=== PATIENT | male | born 1940 | race Caucasian/White ===

== ENCOUNTER 2021-04-12 18:38 | Inpatient (IN) | payer MEDICARE, SELFPAY ==
[~2021-04-12] VITALS: Ht 170.2 cm; Wt 79.1 kg
[2021-04-12 20:49] LABS: HEMATOCRIT 45.2 % (42.0-52.0); HEMOGLOBIN 14.8 g/dl (13.5-17.5); MEAN CORPUSCULAR HEMOGLOBIN 29.7 pg (27.0-33.0); MEAN CORPUSCULAR HGB CONC 32.7 g/dl (32.0-36.5); MEAN CORPUSCULAR VOLUME 90.8 fl (80.0-96.0); PLATELET COUNT, AUTOMATED 331 10^3/uL (150-450); RED BLOOD COUNT 4.98 10^6/uL (4.30-6.10); WHITE BLOOD COUNT 11.2 10^3/uL (4.0-10.0)
[2021-04-12 21:13] LABS: ACETAMINOPHEN LEVEL < 2.0 UG/ML (10.0-30.0); ALBUMIN 3.5 GM/DL (3.2-5.2); ALKALINE PHOSPHATASE 79 U/L (45-117); ALT/SGPT 21 U/L (12-78); AST/SGOT 17 U/L (7-37); BILIRUBIN,DIRECT 0.1 MG/DL (0.0-0.2); BILIRUBIN,TOTAL 0.3 MG/DL (0.2-1.0); BLOOD UREA NITROGEN 17 MG/DL (7-18); CALCIUM LEVEL 9.4 MG/DL (8.8-10.2); CARBON DIOXIDE LEVEL 24 MEQ/L (21-32); CHLORIDE LEVEL 107 MEQ/L (98-107); CREATININE FOR GFR 0.91 MG/DL (0.70-1.30); ETHYL ALCOHOL (ETHANOL) < 0.003 % (0.000-0.010); GLOMERULAR FILTRATION RATE > 60.0 (>35); GLUCOSE, FASTING 106 MG/DL (70-100); POTASSIUM SERUM 4.1 MEQ/L (3.5-5.1); SALICYLATE LEVEL 3.9 MG/DL (5.0-30.0); SODIUM LEVEL 140 MEQ/L (136-145); TOTAL PROTEIN 7.4 GM/DL (6.4-8.2)
[2021-04-12 21:30] LABS: RSV AMPLIFICATION NEGATIVE (NEGATIVE)
[2021-04-12] MEDS ORDERED: HOME MED LIST COMPLETE! XX SCH (22:35)
[2021-04-13] MEDS ORDERED: diphenhydrAMINE 50MG CAP PO ONE (01:50)
[2021-04-13] MEDS ORDERED: PERCOCET 5MG/325MG TAB PO ONE (08:20)
[2021-04-13] MEDS ORDERED: ALPRAZolam 0.5 MG TAB PO ONE (08:20)
[2021-04-13] MEDS ORDERED: LIDOCAINE 5% (LIDODERM) PATCH TD SCH (09:00)
[2021-04-13 10:22] LABS: AMPHETAMINES LEVEL URINE NEGATIVE (NEGATIVE); BARBITURATES URINE NEGATIVE (NEGATIVE); BENZODIAZEPINES URINE NEGATIVE (NEGATIVE); CANNABINOIDS URINE NEGATIVE (NEGATIVE); COCAINE METABOLITE URINE NEGATIVE (NEGATIVE); METHADONE URINE NEGATIVE (NEGATIVE); OPIATES URINE POSITIVE (NEGATIVE); PHENCYCLIDINE URINE NEGATIVE (NEGATIVE)
[2021-04-13 14:00] VITALS: BP 134/68
[2021-04-13] MEDS: ALPRAZolam 0.5 MG TAB PO SCH (18:00)
[2021-04-13] MEDS: PERCOCET 5MG/325MG TAB PO PRN (18:00)
[2021-04-13] MEDS ORDERED: PERCOCET 5MG/325MG TAB PO SCH (21:00)
[2021-04-13 21:29] VITALS: BP 134/69
[2021-04-13] MEDS ORDERED: KETOROLAC 30 MG/ML 1ML VIAL IV ONE (22:35)
[2021-04-13] MEDS ORDERED: KETOROLAC TROMETHAMINE 10 MG TAB PO ONE (22:50)
[2021-04-13] MEDS: LIDOCAINE 5% (LIDODERM) PATCH TD SCH (23:10)
[2021-04-14] MEDS: ACETAMINOPHEN TAB 650MG DOSE (2X325MG) PO PRN (02:43)
[2021-04-14 05:52] VITALS: BP 141/76
[2021-04-14] MEDS: ENOXAPARIN 40MG/0.4ML SYRINGE (J1650 PER 10MG) SC SCH (08:54)
[2021-04-14] MEDS: ALPRAZolam 0.5 MG TAB PO SCH ×2 (08:55→20:32)
[2021-04-14] MEDS: PERCOCET 5MG/325MG TAB PO PRN ×2 (08:56→20:32)
[2021-04-14] MEDS: **NOTE PATIENT COMMENT** MISC XX SCH (08:56)
[2021-04-14 14:00] VITALS: BP 144/81
[2021-04-14] MEDS: LIDOCAINE 5% (LIDODERM) PATCH TD SCH (20:33)
[2021-04-14 22:00] VITALS: BP 147/83
[2021-04-15] MEDS: RAMELTEON 8 MG TAB (ROZEREM) PO PRN ×2 (02:38→20:32)
[2021-04-15] MEDS ORDERED: ALPRAZolam 0.5 MG TAB PO ONE (03:00)
[2021-04-15] MEDS ORDERED: PERCOCET 5MG/325MG TAB PO ONE (03:00)
[2021-04-15 06:00] VITALS: BP 138/66
[2021-04-15] MEDS: ENOXAPARIN 40MG/0.4ML SYRINGE (J1650 PER 10MG) SC SCH (09:00)
[2021-04-15] MEDS: ALPRAZolam 0.5 MG TAB PO SCH ×2 (09:07→20:32)
[2021-04-15] MEDS: PERCOCET 5MG/325MG TAB PO PRN ×2 (09:08→17:28)
[2021-04-15] MEDS: **NOTE PATIENT COMMENT** MISC XX SCH (09:08)
[2021-04-15 14:00] VITALS: BP 141/91
[2021-04-15] MEDS: LIDOCAINE 5% (LIDODERM) PATCH TD SCH (20:32)
[2021-04-16 06:00] VITALS: BP 162/75
[2021-04-16] MEDS: ALPRAZolam 0.5 MG TAB PO SCH ×2 (08:55→20:45)
[2021-04-16] MEDS: PERCOCET 5MG/325MG TAB PO PRN ×2 (08:56→20:46)
[2021-04-16] MEDS: ENOXAPARIN 40MG/0.4ML SYRINGE (J1650 PER 10MG) SC SCH (09:00)
[2021-04-16] MEDS: **NOTE PATIENT COMMENT** MISC XX SCH (09:02)
[2021-04-16] MEDS ORDERED: PERC10TA26 PO (11:45)
[2021-04-16] MEDS ORDERED: ALPR2TAB3 PO (11:47)
[2021-04-16] MEDS ORDERED: ZOLP10TA2 PO (11:47)
[2021-04-16] MEDS ORDERED: NITROFURANTOIN (MACROBID) 100 MG CAP PO SCH (12:00)
[2021-04-16] MEDS: AMOXICILLIN 875 MG TAB PO SCH ×2 (12:23→20:45)
[2021-04-16] MEDS: LIDOCAINE 5% (LIDODERM) PATCH TD SCH (20:45)
[2021-04-16] MEDS: RAMELTEON 8 MG TAB (ROZEREM) PO PRN (20:45)
[2021-04-16 22:00] VITALS: BP 121/71
[2021-04-17 06:00] VITALS: BP 163/73
[2021-04-17] MEDS: PERCOCET 5MG/325MG TAB PO PRN ×3 (06:26→18:56)
[2021-04-17] MEDS: AMOXICILLIN 875 MG TAB PO SCH ×2 (08:20→20:08)
[2021-04-17] MEDS: ALPRAZolam 0.5 MG TAB PO SCH ×2 (08:21→20:08)
[2021-04-17] MEDS: ENOXAPARIN 40MG/0.4ML SYRINGE (J1650 PER 10MG) SC SCH (09:00)
[2021-04-17] MEDS: **NOTE PATIENT COMMENT** MISC XX SCH (09:47)
[2021-04-17] MEDS: RAMELTEON 8 MG TAB (ROZEREM) PO PRN (20:08)
[2021-04-17] MEDS: LIDOCAINE 5% (LIDODERM) PATCH TD SCH (20:09)
[2021-04-18 06:49] VITALS: BP 151/100
[2021-04-18] MEDS: ENOXAPARIN 40MG/0.4ML SYRINGE (J1650 PER 10MG) SC SCH (08:45)
[2021-04-18] MEDS: AMOXICILLIN 875 MG TAB PO SCH ×2 (08:53→20:36)
[2021-04-18] MEDS: ALPRAZolam 0.5 MG TAB PO SCH ×2 (08:53→20:36)
[2021-04-18] MEDS: PERCOCET 5MG/325MG TAB PO PRN ×4 (08:54→21:20)
[2021-04-18] MEDS: **NOTE PATIENT COMMENT** MISC XX SCH (08:54)
[2021-04-18 09:00] VITALS: BP 152/94
[2021-04-18] MEDS ORDERED: amLODIPine 5 MG TAB PO SCH (11:30)
[2021-04-18] MEDS: RAMELTEON 8 MG TAB (ROZEREM) PO PRN (20:36)
[2021-04-18] MEDS: LIDOCAINE 5% (LIDODERM) PATCH TD SCH (20:37)
[2021-04-19] MEDS: PERCOCET 5MG/325MG TAB PO PRN ×5 (01:48→20:58)
[2021-04-19 06:00] VITALS: BP 132/73
[2021-04-19] MEDS: AMOXICILLIN 875 MG TAB PO SCH ×2 (09:55→20:57)
[2021-04-19] MEDS: ALPRAZolam 0.5 MG TAB PO SCH ×2 (09:55→20:58)
[2021-04-19] MEDS: **NOTE PATIENT COMMENT** MISC XX SCH (09:57)
[2021-04-19] MEDS: RAMELTEON 8 MG TAB (ROZEREM) PO PRN (20:58)
[2021-04-19] MEDS: LIDOCAINE 5% (LIDODERM) PATCH TD SCH (20:58)
[2021-04-20] MEDS: PERCOCET 5MG/325MG TAB PO PRN ×4 (04:29→22:30)
[2021-04-20 06:00] VITALS: BP 163/82
[2021-04-20] MEDS: ALPRAZolam 0.5 MG TAB PO SCH ×2 (09:02→21:00)
[2021-04-20] MEDS: AMOXICILLIN 875 MG TAB PO SCH ×3 (09:02→22:28)
[2021-04-20] MEDS: **NOTE PATIENT COMMENT** MISC XX SCH (09:46)
[2021-04-20] MEDS: LIDOCAINE 5% (LIDODERM) PATCH TD SCH (21:00)
[2021-04-20] MEDS: RAMELTEON 8 MG TAB (ROZEREM) PO PRN (22:29)
[2021-04-21] MEDS: PERCOCET 5MG/325MG TAB PO PRN ×4 (04:22→18:30)
[2021-04-21 06:00] VITALS: BP 158/79
[2021-04-21] MEDS: **NOTE PATIENT COMMENT** MISC XX SCH (09:00)
[2021-04-21] MEDS: ALPRAZolam 0.5 MG TAB PO SCH ×2 (09:58→21:12)
[2021-04-21] MEDS: ACETAMINOPHEN TAB 650MG DOSE (2X325MG) PO PRN ×2 (16:00→21:12)
[2021-04-21] MEDS: LIDOCAINE 5% (LIDODERM) PATCH TD SCH (21:11)
[2021-04-21] MEDS: AMOXICILLIN 875 MG TAB PO SCH (21:12)
[2021-04-21] MEDS: RAMELTEON 8 MG TAB (ROZEREM) PO PRN (21:12)
[2021-04-22] MEDS: PERCOCET 5MG/325MG TAB PO PRN ×3 (06:04→18:39)
[2021-04-22 06:05] VITALS: BP 152/73
[2021-04-22] MEDS: ALPRAZolam 0.5 MG TAB PO SCH ×2 (08:51→21:32)
[2021-04-22] MEDS: ACETAMINOPHEN TAB 650MG DOSE (2X325MG) PO PRN ×2 (08:52→21:32)
[2021-04-22] MEDS: AMOXICILLIN 875 MG TAB PO SCH ×2 (08:52→21:32)
[2021-04-22] MEDS: **NOTE PATIENT COMMENT** MISC XX SCH (08:52)
[2021-04-22] MEDS: RAMELTEON 8 MG TAB (ROZEREM) PO PRN (21:32)
[2021-04-22] MEDS: LIDOCAINE 5% (LIDODERM) PATCH TD SCH (21:32)
[2021-04-23] MEDS: PERCOCET 5MG/325MG TAB PO PRN ×3 (00:41→16:49)
[2021-04-23 06:00] VITALS: BP 149/75
[2021-04-23] MEDS: **NOTE PATIENT COMMENT** MISC XX SCH (08:15)
[2021-04-23] MEDS: ALPRAZolam 0.5 MG TAB PO SCH ×2 (08:15→21:20)
[2021-04-23] MEDS: AMOXICILLIN 875 MG TAB PO SCH ×2 (08:15→21:20)
[2021-04-23] MEDS: ACETAMINOPHEN TAB 650MG DOSE (2X325MG) PO PRN ×2 (11:43→21:20)
[2021-04-23 14:00] VITALS: BP 152/76
[2021-04-23] MEDS: LIDOCAINE 5% (LIDODERM) PATCH TD SCH (21:20)
[2021-04-23] MEDS: RAMELTEON 8 MG TAB (ROZEREM) PO PRN (21:20)
[2021-04-24] MEDS: PERCOCET 5MG/325MG TAB PO PRN ×3 (05:39→21:04)
[2021-04-24 06:00] VITALS: BP 137/64
[2021-04-24] MEDS: ALPRAZolam 0.5 MG TAB PO SCH ×2 (09:20→21:03)
[2021-04-24] MEDS: AMOXICILLIN 875 MG TAB PO SCH ×2 (09:20→21:03)
[2021-04-24] MEDS: ACETAMINOPHEN TAB 650MG DOSE (2X325MG) PO PRN (09:20)
[2021-04-24] MEDS: **NOTE PATIENT COMMENT** MISC XX SCH (09:20)
[2021-04-24] MEDS: RAMELTEON 8 MG TAB (ROZEREM) PO PRN (21:03)
[2021-04-24] MEDS: LIDOCAINE 5% (LIDODERM) PATCH TD SCH (21:03)
[2021-04-25] MEDS: PERCOCET 5MG/325MG TAB PO PRN ×3 (03:32→15:01)
[2021-04-25 05:30] VITALS: BP 137/70
[2021-04-25] MEDS: **NOTE PATIENT COMMENT** MISC XX SCH (09:00)
[2021-04-25] MEDS: AMOXICILLIN 875 MG TAB PO SCH ×2 (09:50→20:48)
[2021-04-25] MEDS: ALPRAZolam 0.5 MG TAB PO SCH ×2 (09:50→20:48)
[2021-04-25] MEDS: LIDOCAINE 5% (LIDODERM) PATCH TD SCH (20:49)
[2021-04-25] MEDS: MOM 30ML SUSPENSION UDC PO PRN (20:54)
[2021-04-26] MEDS: ACETAMINOPHEN TAB 650MG DOSE (2X325MG) PO PRN ×5 (00:27→20:59)
[2021-04-26] MEDS: RAMELTEON 8 MG TAB (ROZEREM) PO PRN ×2 (00:27→20:59)
[2021-04-26 06:23] VITALS: BP 152/70
[2021-04-26] MEDS: ALPRAZolam 0.5 MG TAB PO SCH ×2 (08:26→21:00)
[2021-04-26] MEDS: DOCUSATE SODIUM 100MG CAPSULE PO PRN (08:26)
[2021-04-26] MEDS: **NOTE PATIENT COMMENT** MISC XX SCH (09:00)
[2021-04-26] MEDS: PERCOCET 5MG/325MG TAB PO PRN (16:03)
[2021-04-26] MEDS: LIDOCAINE 5% (LIDODERM) PATCH TD SCH (21:00)
[2021-04-27] MEDS: ACETAMINOPHEN TAB 650MG DOSE (2X325MG) PO PRN ×4 (01:22→20:06)
[2021-04-27] MEDS: PERCOCET 5MG/325MG TAB PO PRN ×3 (02:32→22:39)
[2021-04-27 06:00] VITALS: BP 136/74
[2021-04-27] MEDS: ALPRAZolam 0.5 MG TAB PO SCH ×2 (08:13→20:06)
[2021-04-27] MEDS: **NOTE PATIENT COMMENT** MISC XX SCH (08:13)
[2021-04-27] MEDS: CALCIUM CARBONATE 500 MG CHEW U/D PO PRN (13:31)
[2021-04-27] MEDS: LIDOCAINE 5% (LIDODERM) PATCH TD SCH ×2 (20:05→20:08)
[2021-04-27] MEDS: RAMELTEON 8 MG TAB (ROZEREM) PO PRN (20:06)
[2021-04-28] MEDS: PERCOCET 5MG/325MG TAB PO PRN ×2 (04:23→20:26)
[2021-04-28 06:00] VITALS: BP 136/73
[2021-04-28] MEDS: ACETAMINOPHEN TAB 650MG DOSE (2X325MG) PO PRN ×3 (08:05→17:10)
[2021-04-28] MEDS: ALPRAZolam 0.5 MG TAB PO SCH (09:00)
[2021-04-28] MEDS: **NOTE PATIENT COMMENT** MISC XX SCH (09:40)
[2021-04-28] MEDS: ALPRAZolam 0.5 MG TAB PO PRN (20:26)
[2021-04-28] MEDS: RAMELTEON 8 MG TAB (ROZEREM) PO PRN (20:26)
[2021-04-28] MEDS: LIDOCAINE 5% (LIDODERM) PATCH TD SCH (20:27)
[2021-04-28] MEDS: HEPARIN SOD (PORCINE) 5000UNITS/ML 1ML VIAL/SYRINGE SQ SCH (20:27)
[2021-04-29] MEDS: ACETAMINOPHEN TAB 650MG DOSE (2X325MG) PO PRN ×4 (01:19→19:51)
[2021-04-29] MEDS ORDERED: ALPRAZolam 0.5 MG TAB PO ONE (02:00)
[2021-04-29] MEDS: PERCOCET 5MG/325MG TAB PO PRN ×4 (06:06→19:51)
[2021-04-29] MEDS: **NOTE PATIENT COMMENT** MISC XX SCH (08:47)
[2021-04-29] MEDS: HEPARIN SOD (PORCINE) 5000UNITS/ML 1ML VIAL/SYRINGE SQ SCH ×2 (08:47→19:53)
[2021-04-29] MEDS: ALPRAZolam 0.5 MG TAB PO SCH ×2 (08:55→19:52)
[2021-04-29 15:53] VITALS: BP 134/71
[2021-04-29] MEDS: RAMELTEON 8 MG TAB (ROZEREM) PO PRN (19:51)
[2021-04-29] MEDS: LIDOCAINE 5% (LIDODERM) PATCH TD SCH (19:53)
[2021-04-29] MEDS: ALPRAZolam 0.5 MG TAB PO PRN (23:51)
[2021-04-30] MEDS: PERCOCET 5MG/325MG TAB PO PRN ×3 (04:50→18:04)
[2021-04-30 06:00] VITALS: BP 139/74
[2021-04-30] MEDS: ALPRAZolam 0.5 MG TAB PO PRN ×2 (06:10→18:05)
[2021-04-30] MEDS: HEPARIN SOD (PORCINE) 5000UNITS/ML 1ML VIAL/SYRINGE SQ SCH ×2 (09:00→21:00)
[2021-04-30] MEDS: ALPRAZolam 0.5 MG TAB PO SCH ×2 (10:13→21:17)
[2021-04-30] MEDS: **NOTE PATIENT COMMENT** MISC XX SCH (10:14)
[2021-04-30 14:00] VITALS: BP 142/60
[2021-04-30] MEDS: LIDOCAINE 5% (LIDODERM) PATCH TD SCH (21:00)
[2021-04-30] MEDS: ACETAMINOPHEN TAB 650MG DOSE (2X325MG) PO PRN (21:17)
[2021-04-30] MEDS: RAMELTEON 8 MG TAB (ROZEREM) PO PRN (21:17)
[2021-05-01 06:00] VITALS: BP 174/78
[2021-05-01] MEDS: PERCOCET 5MG/325MG TAB PO PRN ×4 (06:56→23:27)
[2021-05-01] MEDS: ALPRAZolam 0.5 MG TAB PO PRN (06:56)
[2021-05-01] MEDS: **NOTE PATIENT COMMENT** MISC XX SCH (08:58)
[2021-05-01] MEDS: HEPARIN SOD (PORCINE) 5000UNITS/ML 1ML VIAL/SYRINGE SQ SCH ×2 (08:58→21:00)
[2021-05-01] MEDS: ALPRAZolam 0.5 MG TAB PO SCH ×3 (08:58→23:27)
[2021-05-01] MEDS: ACETAMINOPHEN TAB 650MG DOSE (2X325MG) PO PRN (19:53)
[2021-05-01] MEDS: RAMELTEON 8 MG TAB (ROZEREM) PO PRN ×2 (19:53→23:27)
[2021-05-01] MEDS ORDERED: diphenhydrAMINE 50MG/ML VIAL IM STA (20:24)
[2021-05-01] MEDS ORDERED: OLANZapine INTRAMUSCULAR 10MG VIAL IM ONE (20:25)
[2021-05-01] MEDS: LIDOCAINE 5% (LIDODERM) PATCH TD SCH (21:00)
[2021-05-02] MEDS: ALPRAZolam 0.5 MG TAB PO PRN ×2 (05:12→18:47)
[2021-05-02] MEDS: PERCOCET 5MG/325MG TAB PO PRN ×3 (05:13→18:45)
[2021-05-02] MEDS: HEPARIN SOD (PORCINE) 5000UNITS/ML 1ML VIAL/SYRINGE SQ SCH (08:39)
[2021-05-02] MEDS: **NOTE PATIENT COMMENT** MISC XX SCH (08:39)
[2021-05-02] MEDS: QUEtiapine FUMARATE 25 MG TAB PO SCH ×2 (10:18→22:02)
[2021-05-02] MEDS: ALPRAZolam 0.5 MG TAB PO SCH ×2 (10:18→22:03)
[2021-05-02] MEDS: RAMELTEON 8 MG TAB (ROZEREM) PO PRN (22:03)
[2021-05-03] MEDS: PERCOCET 5MG/325MG TAB PO PRN ×5 (00:55→21:00)
[2021-05-03 06:00] VITALS: BP 147/85
[2021-05-03] MEDS: **NOTE PATIENT COMMENT** MISC XX SCH (09:00)
[2021-05-03] MEDS: HEPARIN SOD (PORCINE) 5000UNITS/ML 1ML VIAL/SYRINGE SQ SCH ×2 (09:00→21:00)
[2021-05-03] MEDS: ALPRAZolam 0.5 MG TAB PO SCH ×2 (09:33→21:00)
[2021-05-03] MEDS: QUEtiapine FUMARATE 25 MG TAB PO SCH ×2 (09:33→20:59)
[2021-05-03] MEDS: ACETAMINOPHEN TAB 650MG DOSE (2X325MG) PO PRN (11:41)
[2021-05-03] MEDS: RAMELTEON 8 MG TAB (ROZEREM) PO PRN (20:59)
[2021-05-03] MEDS: ALPRAZolam 0.5 MG TAB PO PRN (21:00)
[2021-05-03] MEDS: LIDOCAINE 5% (LIDODERM) PATCH TD SCH (21:00)
[2021-05-04] MEDS: PERCOCET 5MG/325MG TAB PO PRN ×3 (01:26→16:36)
[2021-05-04 06:00] VITALS: BP 118/68
[2021-05-04] MEDS: ALPRAZolam 0.5 MG TAB PO SCH ×2 (08:40→20:09)
[2021-05-04] MEDS: QUEtiapine FUMARATE 25 MG TAB PO SCH ×2 (08:41→20:09)
[2021-05-04] MEDS: HEPARIN SOD (PORCINE) 5000UNITS/ML 1ML VIAL/SYRINGE SQ SCH ×2 (08:41→20:08)
[2021-05-04] MEDS: **NOTE PATIENT COMMENT** MISC XX SCH (08:48)
[2021-05-04] MEDS: ALPRAZolam 0.5 MG TAB PO PRN (18:09)
[2021-05-04] MEDS: LIDOCAINE 5% (LIDODERM) PATCH TD SCH (20:08)
[2021-05-04] MEDS: RAMELTEON 8 MG TAB (ROZEREM) PO PRN (20:09)
[2021-05-04] MEDS: ACETAMINOPHEN TAB 650MG DOSE (2X325MG) PO PRN (20:09)
[2021-05-04] MEDS: DOCUSATE SODIUM 100MG CAPSULE PO PRN (20:09)
[2021-05-05] MEDS: PERCOCET 5MG/325MG TAB PO PRN ×3 (01:29→22:06)
[2021-05-05] MEDS: ACETAMINOPHEN TAB 650MG DOSE (2X325MG) PO PRN (03:18)
[2021-05-05 06:00] VITALS: BP 125/71
[2021-05-05] MEDS: QUEtiapine FUMARATE 25 MG TAB PO SCH ×2 (08:41→22:05)
[2021-05-05] MEDS: ALPRAZolam 0.5 MG TAB PO SCH ×2 (08:41→22:05)
[2021-05-05] MEDS: HEPARIN SOD (PORCINE) 5000UNITS/ML 1ML VIAL/SYRINGE SQ SCH ×2 (08:42→22:04)
[2021-05-05] MEDS: **NOTE PATIENT COMMENT** MISC XX SCH (08:42)
[2021-05-05] MEDS: LIDOCAINE 5% (LIDODERM) PATCH TD SCH (22:04)
[2021-05-05] MEDS: DOCUSATE SODIUM 100MG CAPSULE PO PRN (22:05)
[2021-05-05] MEDS: RAMELTEON 8 MG TAB (ROZEREM) PO PRN (22:05)
[2021-05-06] MEDS: PERCOCET 5MG/325MG TAB PO PRN ×5 (02:47→21:59)
[2021-05-06 02:48] VITALS: BP 130/72
[2021-05-06] MEDS: HEPARIN SOD (PORCINE) 5000UNITS/ML 1ML VIAL/SYRINGE SQ SCH ×2 (09:00→21:00)
[2021-05-06] MEDS: ALPRAZolam 0.5 MG TAB PO SCH ×2 (09:26→21:58)
[2021-05-06] MEDS: QUEtiapine FUMARATE 25 MG TAB PO SCH ×2 (09:26→21:59)
[2021-05-06] MEDS: **NOTE PATIENT COMMENT** MISC XX SCH (09:28)
[2021-05-06] MEDS: ALPRAZolam 0.5 MG TAB PO PRN (18:19)
[2021-05-06] MEDS: LIDOCAINE 5% (LIDODERM) PATCH TD SCH (21:00)
[2021-05-06] MEDS: RAMELTEON 8 MG TAB (ROZEREM) PO PRN (21:58)
[2021-05-07] MEDS: ACETAMINOPHEN TAB 650MG DOSE (2X325MG) PO PRN ×2 (03:29→11:19)
[2021-05-07 06:00] VITALS: BP 138/76
[2021-05-07] MEDS: ALPRAZolam 0.5 MG TAB PO SCH ×3 (08:27→21:13)
[2021-05-07] MEDS: QUEtiapine FUMARATE 25 MG TAB PO SCH ×2 (08:27→21:00)
[2021-05-07] MEDS: PERCOCET 5MG/325MG TAB PO PRN ×2 (08:28→13:01)
[2021-05-07] MEDS: **NOTE PATIENT COMMENT** MISC XX SCH (09:00)
[2021-05-07] MEDS: HEPARIN SOD (PORCINE) 5000UNITS/ML 1ML VIAL/SYRINGE SQ SCH ×2 (09:00→21:00)
[2021-05-07] MEDS: ALPRAZolam 0.5 MG TAB PO PRN (13:01)
[2021-05-07] MEDS: LIDOCAINE 5% (LIDODERM) PATCH TD SCH (21:00)
[2021-05-08] MEDS: ALPRAZolam 0.5 MG TAB PO SCH ×3 (06:00→21:15)
[2021-05-08] MEDS: HEPARIN SOD (PORCINE) 5000UNITS/ML 1ML VIAL/SYRINGE SQ SCH ×2 (08:38→21:00)
[2021-05-08] MEDS: **NOTE PATIENT COMMENT** MISC XX SCH (08:39)
[2021-05-08] MEDS: QUEtiapine FUMARATE 25 MG TAB PO SCH ×2 (09:00→21:00)
[2021-05-08] MEDS: LIDOCAINE 5% (LIDODERM) PATCH TD SCH (21:00)
[2021-05-09] MEDS: ALPRAZolam 0.5 MG TAB PO SCH ×4 (05:46→21:11)
[2021-05-09] MEDS: PERCOCET 5MG/325MG TAB PO PRN ×4 (07:37→21:12)
[2021-05-09] MEDS: QUEtiapine FUMARATE 25 MG TAB PO SCH ×3 (07:38→21:11)
[2021-05-09] MEDS: **NOTE PATIENT COMMENT** MISC XX SCH (08:45)
[2021-05-09] MEDS: HEPARIN SOD (PORCINE) 5000UNITS/ML 1ML VIAL/SYRINGE SQ SCH ×2 (08:46→21:00)
[2021-05-09] MEDS: LIDOCAINE 5% (LIDODERM) PATCH TD SCH (21:00)
[2021-05-09] MEDS: RAMELTEON 8 MG TAB (ROZEREM) PO PRN (21:11)
[2021-05-10] MEDS: ALPRAZolam 0.5 MG TAB PO SCH ×3 (05:51→20:48)
[2021-05-10] MEDS: PERCOCET 5MG/325MG TAB PO PRN ×3 (05:51→20:47)
[2021-05-10 06:00] VITALS: BP 137/75
[2021-05-10] MEDS: ACETAMINOPHEN TAB 650MG DOSE (2X325MG) PO PRN ×2 (08:49→16:14)
[2021-05-10] MEDS: QUEtiapine FUMARATE 25 MG TAB PO SCH ×2 (08:49→20:47)
[2021-05-10] MEDS: HEPARIN SOD (PORCINE) 5000UNITS/ML 1ML VIAL/SYRINGE SQ SCH ×2 (09:00→20:48)
[2021-05-10] MEDS: **NOTE PATIENT COMMENT** MISC XX SCH (09:59)
[2021-05-10] MEDS: CALCIUM CARBONATE 500 MG CHEW U/D PO PRN (16:14)
[2021-05-10] MEDS: RAMELTEON 8 MG TAB (ROZEREM) PO PRN (20:47)
[2021-05-10] MEDS: LIDOCAINE 5% (LIDODERM) PATCH TD SCH (20:48)
[2021-05-11] MEDS: PERCOCET 5MG/325MG TAB PO PRN ×5 (01:16→18:25)
[2021-05-11] MEDS: ALPRAZolam 0.5 MG TAB PO PRN ×3 (01:18→18:25)
[2021-05-11] MEDS: ALPRAZolam 0.5 MG TAB PO SCH ×3 (05:29→20:57)
[2021-05-11] MEDS: HEPARIN SOD (PORCINE) 5000UNITS/ML 1ML VIAL/SYRINGE SQ SCH ×2 (07:10→20:51)
[2021-05-11] MEDS: ACETAMINOPHEN TAB 650MG DOSE (2X325MG) PO PRN ×2 (07:54→20:58)
[2021-05-11] MEDS: QUEtiapine FUMARATE 25 MG TAB PO SCH ×3 (07:54→20:57)
[2021-05-11] MEDS: **NOTE PATIENT COMMENT** MISC XX SCH (09:32)
[2021-05-11] MEDS: LIDOCAINE 5% (LIDODERM) PATCH TD SCH (20:51)
[2021-05-11] MEDS: RAMELTEON 8 MG TAB (ROZEREM) PO PRN (20:57)
[2021-05-12] MEDS: PERCOCET 5MG/325MG TAB PO PRN ×4 (02:42→22:03)
[2021-05-12] MEDS: ALPRAZolam 0.5 MG TAB PO SCH ×3 (05:44→22:02)
[2021-05-12] MEDS: ACETAMINOPHEN TAB 650MG DOSE (2X325MG) PO PRN (05:44)
[2021-05-12 06:00] VITALS: BP 174/90
[2021-05-12] MEDS: HEPARIN SOD (PORCINE) 5000UNITS/ML 1ML VIAL/SYRINGE SQ SCH ×2 (07:52→21:00)
[2021-05-12] MEDS: **NOTE PATIENT COMMENT** MISC XX SCH (07:52)
[2021-05-12] MEDS: QUEtiapine FUMARATE 25 MG TAB PO SCH ×2 (08:35→22:02)
[2021-05-12] MEDS: ALPRAZolam 0.5 MG TAB PO PRN (17:01)
[2021-05-12] MEDS: LIDOCAINE 5% (LIDODERM) PATCH TD SCH (21:00)
[2021-05-12] MEDS: RAMELTEON 8 MG TAB (ROZEREM) PO PRN (22:02)
[2021-05-13] MEDS: PERCOCET 5MG/325MG TAB PO PRN ×3 (02:42→20:06)
[2021-05-13] MEDS: ALPRAZolam 0.5 MG TAB PO SCH ×4 (06:10→20:06)
[2021-05-13] MEDS: QUEtiapine FUMARATE 25 MG TAB PO SCH ×2 (09:00→20:06)
[2021-05-13] MEDS: **NOTE PATIENT COMMENT** MISC XX SCH (09:00)
[2021-05-13] MEDS: HEPARIN SOD (PORCINE) 5000UNITS/ML 1ML VIAL/SYRINGE SQ SCH ×2 (09:00→20:01)
[2021-05-13] MEDS: LIDOCAINE 5% (LIDODERM) PATCH TD SCH (20:01)
[2021-05-13] MEDS: RAMELTEON 8 MG TAB (ROZEREM) PO PRN (20:06)
[2021-05-14] MEDS: PERCOCET 5MG/325MG TAB PO PRN ×4 (01:23→20:00)
[2021-05-14] MEDS: ALPRAZolam 0.5 MG TAB PO PRN ×2 (01:27→09:19)
[2021-05-14] MEDS ORDERED: HALOPERIDOL 5MG/ML 1ML VIAL IM STA (02:34)
[2021-05-14] MEDS: ALPRAZolam 0.5 MG TAB PO SCH ×3 (06:05→19:58)
[2021-05-14] MEDS: **NOTE PATIENT COMMENT** MISC XX SCH (08:33)
[2021-05-14] MEDS: HEPARIN SOD (PORCINE) 5000UNITS/ML 1ML VIAL/SYRINGE SQ SCH ×2 (08:55→20:00)
[2021-05-14] MEDS: QUEtiapine FUMARATE 25 MG TAB PO SCH ×2 (09:19→19:58)
[2021-05-14] MEDS: LIDOCAINE 5% (LIDODERM) PATCH TD SCH (19:57)
[2021-05-14] MEDS: RAMELTEON 8 MG TAB (ROZEREM) PO PRN (19:58)
[2021-05-15] MEDS: ALPRAZolam 0.5 MG TAB PO SCH ×3 (05:22→20:32)
[2021-05-15] MEDS: PERCOCET 5MG/325MG TAB PO PRN ×3 (05:23→20:32)
[2021-05-15] MEDS: **NOTE PATIENT COMMENT** MISC XX SCH (09:00)
[2021-05-15] MEDS: HEPARIN SOD (PORCINE) 5000UNITS/ML 1ML VIAL/SYRINGE SQ SCH ×2 (09:00→20:35)
[2021-05-15] MEDS: QUEtiapine FUMARATE 25 MG TAB PO SCH ×2 (09:57→20:33)
[2021-05-15] MEDS: RAMELTEON 8 MG TAB (ROZEREM) PO PRN (20:32)
[2021-05-15] MEDS: LIDOCAINE 5% (LIDODERM) PATCH TD SCH (20:36)
[2021-05-16] MEDS: ALPRAZolam 0.5 MG TAB PO PRN (03:08)
[2021-05-16] MEDS: PERCOCET 5MG/325MG TAB PO PRN ×4 (03:08→20:16)
[2021-05-16] MEDS: ACETAMINOPHEN TAB 650MG DOSE (2X325MG) PO PRN (05:52)
[2021-05-16] MEDS: ALPRAZolam 0.5 MG TAB PO SCH ×4 (05:52→21:04)
[2021-05-16] MEDS: HEPARIN SOD (PORCINE) 5000UNITS/ML 1ML VIAL/SYRINGE SQ SCH ×2 (09:00→20:08)
[2021-05-16] MEDS: **NOTE PATIENT COMMENT** MISC XX SCH (09:00)
[2021-05-16] MEDS: QUEtiapine FUMARATE 25 MG TAB PO SCH ×3 (09:00→20:16)
[2021-05-16] MEDS: LIDOCAINE 5% (LIDODERM) PATCH TD SCH (20:08)
[2021-05-16] MEDS: RAMELTEON 8 MG TAB (ROZEREM) PO PRN (20:15)
[2021-05-17] MEDS: ALPRAZolam 0.5 MG TAB PO PRN ×2 (02:36→18:18)
[2021-05-17] MEDS: PERCOCET 5MG/325MG TAB PO PRN ×5 (02:36→22:59)
[2021-05-17] MEDS: ALPRAZolam 0.5 MG TAB PO SCH ×3 (05:21→22:59)
[2021-05-17] MEDS: QUEtiapine FUMARATE 25 MG TAB PO SCH ×2 (07:28→20:42)
[2021-05-17] MEDS: **NOTE PATIENT COMMENT** MISC XX SCH (07:31)
[2021-05-17] MEDS: HEPARIN SOD (PORCINE) 5000UNITS/ML 1ML VIAL/SYRINGE SQ SCH ×2 (07:31→20:36)
[2021-05-17] MEDS: LIDOCAINE 5% (LIDODERM) PATCH TD SCH (20:36)
[2021-05-17] MEDS: RAMELTEON 8 MG TAB (ROZEREM) PO PRN (20:42)
[2021-05-18] MEDS: ALPRAZolam 0.5 MG TAB PO SCH ×3 (05:07→21:19)
[2021-05-18] MEDS: PERCOCET 5MG/325MG TAB PO PRN ×3 (07:56→21:19)
[2021-05-18] MEDS: HEPARIN SOD (PORCINE) 5000UNITS/ML 1ML VIAL/SYRINGE SQ SCH ×2 (07:57→21:00)
[2021-05-18] MEDS: QUEtiapine FUMARATE 25 MG TAB PO SCH ×2 (07:57→21:18)
[2021-05-18] MEDS: **NOTE PATIENT COMMENT** MISC XX SCH (07:57)
[2021-05-18] MEDS: LIDOCAINE 5% (LIDODERM) PATCH TD SCH (21:00)
[2021-05-18] MEDS: RAMELTEON 8 MG TAB (ROZEREM) PO PRN (21:19)
[2021-05-18] MEDS ORDERED: HALOPERIDOL 5MG/ML 1ML VIAL IM STA (23:05)
[2021-05-19] MEDS ORDERED: diphenhydrAMINE 50MG/ML VIAL IM ONE
[2021-05-19] MEDS ORDERED: LORazepam 2 MG TAB PO ONE
[2021-05-19] MEDS: PERCOCET 5MG/325MG TAB PO PRN ×4 (03:04→19:40)
[2021-05-19] MEDS: ALPRAZolam 0.5 MG TAB PO SCH ×4 (06:00→22:32)
[2021-05-19] MEDS: HEPARIN SOD (PORCINE) 5000UNITS/ML 1ML VIAL/SYRINGE SQ SCH ×2 (09:00→19:49)
[2021-05-19] MEDS: **NOTE PATIENT COMMENT** MISC XX SCH (09:00)
[2021-05-19] MEDS: ALPRAZolam 0.5 MG TAB PO PRN ×2 (09:27→19:42)
[2021-05-19] MEDS: QUEtiapine FUMARATE 25 MG TAB PO SCH ×2 (09:28→19:41)
[2021-05-19] MEDS: RAMELTEON 8 MG TAB (ROZEREM) PO PRN (19:40)
[2021-05-19] MEDS: LIDOCAINE 5% (LIDODERM) PATCH TD SCH (19:50)
[2021-05-20] MEDS: PERCOCET 5MG/325MG TAB PO PRN ×6 (01:50→22:24)
[2021-05-20] MEDS: ALPRAZolam 0.5 MG TAB PO SCH ×3 (06:24→22:23)
[2021-05-20] MEDS: **NOTE PATIENT COMMENT** MISC XX SCH (09:00)
[2021-05-20] MEDS: HEPARIN SOD (PORCINE) 5000UNITS/ML 1ML VIAL/SYRINGE SQ SCH ×2 (09:00→22:22)
[2021-05-20] MEDS: QUEtiapine FUMARATE 25 MG TAB PO SCH ×2 (10:04→22:22)
[2021-05-20] MEDS: LIDOCAINE 5% (LIDODERM) PATCH TD SCH (22:22)
[2021-05-20] MEDS: RAMELTEON 8 MG TAB (ROZEREM) PO PRN (22:24)
[2021-05-21] MEDS: PERCOCET 5MG/325MG TAB PO PRN ×5 (02:31→20:58)
[2021-05-21 06:00] VITALS: BP 166/72
[2021-05-21] MEDS: ALPRAZolam 0.5 MG TAB PO SCH ×3 (06:37→21:00)
[2021-05-21] MEDS: HEPARIN SOD (PORCINE) 5000UNITS/ML 1ML VIAL/SYRINGE SQ SCH ×2 (09:00→20:00)
[2021-05-21] MEDS: **NOTE PATIENT COMMENT** MISC XX SCH (09:00)
[2021-05-21] MEDS: QUEtiapine FUMARATE 25 MG TAB PO SCH ×2 (10:41→20:57)
[2021-05-21] MEDS: LIDOCAINE 5% (LIDODERM) PATCH TD SCH (20:00)
[2021-05-21] MEDS: RAMELTEON 8 MG TAB (ROZEREM) PO PRN (20:57)
[2021-05-22] MEDS: ALPRAZolam 0.5 MG TAB PO PRN (05:15)
[2021-05-22] MEDS: PERCOCET 5MG/325MG TAB PO PRN ×3 (05:15→13:50)
[2021-05-22] MEDS: ALPRAZolam 0.5 MG TAB PO SCH ×3 (05:16→22:00)
[2021-05-22] MEDS: QUEtiapine FUMARATE 25 MG TAB PO SCH ×2 (08:22→21:00)
[2021-05-22] MEDS: **NOTE PATIENT COMMENT** MISC XX SCH (08:26)
[2021-05-22] MEDS: HEPARIN SOD (PORCINE) 5000UNITS/ML 1ML VIAL/SYRINGE SQ SCH ×2 (08:26→20:07)
[2021-05-22] MEDS: LIDOCAINE 5% (LIDODERM) PATCH TD SCH (20:07)
[2021-05-23] MEDS: ALPRAZolam 0.5 MG TAB PO SCH ×3 (05:56→21:18)
[2021-05-23] MEDS: PERCOCET 5MG/325MG TAB PO PRN ×4 (05:56→21:17)
[2021-05-23 06:00] VITALS: BP 147/68
[2021-05-23] MEDS: **NOTE PATIENT COMMENT** MISC XX SCH (09:00)
[2021-05-23] MEDS: HEPARIN SOD (PORCINE) 5000UNITS/ML 1ML VIAL/SYRINGE SQ SCH ×2 (09:00→20:00)
[2021-05-23] MEDS: QUEtiapine FUMARATE 25 MG TAB PO SCH ×2 (09:57→21:18)
[2021-05-23] MEDS: LIDOCAINE 5% (LIDODERM) PATCH TD SCH (20:00)
[2021-05-23] MEDS: RAMELTEON 8 MG TAB (ROZEREM) PO PRN (21:18)
[2021-05-24] MEDS: PERCOCET 5MG/325MG TAB PO PRN ×3 (04:06→17:56)
[2021-05-24 06:00] VITALS: BP 162/80
[2021-05-24] MEDS: ALPRAZolam 0.5 MG TAB PO SCH ×3 (06:37→20:59)
[2021-05-24] MEDS: HEPARIN SOD (PORCINE) 5000UNITS/ML 1ML VIAL/SYRINGE SQ SCH ×2 (09:00→20:58)
[2021-05-24] MEDS: **NOTE PATIENT COMMENT** MISC XX SCH (09:00)
[2021-05-24] MEDS: QUEtiapine FUMARATE 25 MG TAB PO SCH ×2 (09:32→20:59)
[2021-05-24] MEDS: RAMELTEON 8 MG TAB (ROZEREM) PO PRN (20:59)
[2021-05-24] MEDS: LIDOCAINE 5% (LIDODERM) PATCH TD SCH (20:59)
[2021-05-24] MEDS: ACETAMINOPHEN TAB 650MG DOSE (2X325MG) PO PRN (21:00)
[2021-05-25] MEDS: PERCOCET 5MG/325MG TAB PO PRN ×4 (00:59→22:47)
[2021-05-25] MEDS: ALPRAZolam 0.5 MG TAB PO SCH ×3 (05:00→20:32)
[2021-05-25 06:00] VITALS: BP 110/62
[2021-05-25] MEDS: QUEtiapine FUMARATE 25 MG TAB PO SCH ×2 (09:00→20:32)
[2021-05-25] MEDS: HEPARIN SOD (PORCINE) 5000UNITS/ML 1ML VIAL/SYRINGE SQ SCH ×2 (09:00→21:00)
[2021-05-25] MEDS: **NOTE PATIENT COMMENT** MISC XX SCH (09:00)
[2021-05-25] MEDS: ACETAMINOPHEN TAB 650MG DOSE (2X325MG) PO PRN (19:42)
[2021-05-25] MEDS: RAMELTEON 8 MG TAB (ROZEREM) PO PRN (20:32)
[2021-05-25] MEDS: LIDOCAINE 5% (LIDODERM) PATCH TD SCH (21:00)
[2021-05-26] MEDS: ALPRAZolam 0.5 MG TAB PO PRN (01:41)
[2021-05-26] MEDS: ACETAMINOPHEN TAB 650MG DOSE (2X325MG) PO PRN (01:42)
[2021-05-26] MEDS: ALPRAZolam 0.5 MG TAB PO SCH ×3 (07:51→22:22)
[2021-05-26] MEDS: QUEtiapine FUMARATE 25 MG TAB PO SCH ×2 (07:51→20:39)
[2021-05-26] MEDS: PERCOCET 5MG/325MG TAB PO PRN ×3 (07:51→20:39)
[2021-05-26] MEDS: HEPARIN SOD (PORCINE) 5000UNITS/ML 1ML VIAL/SYRINGE SQ SCH ×2 (09:00→20:40)
[2021-05-26] MEDS: RAMELTEON 8 MG TAB (ROZEREM) PO PRN (20:39)
[2021-05-26 20:51] LABS: APPEARANCE, URINE TURBID (CLEAR); BACTERIA, URINE AUTO 1+ (NEGATIVE); BILIRUBIN, URINE AUTO NEGATIVE (NEGATIVE); BLOOD, URINE BLOOD NEGATIVE (NEGATIVE); COLOR, URINE YELLOW (YELLOW); GLUCOSE, URINE (UA) AUTO NEGATIVE (NEGATIVE); KETONE, URINE AUTO NEGATIVE (NEGATIVE); LEUKOCYTE ESTERASE, URINE AUTO 3+ (NEGATIVE); NITRITE, URINE AUTO NEGATIVE (NEGATIVE); PROTEIN, URINE AUTO NEGATIVE (NEGATIVE); RBC, URINE AUTO 21 /HPF (0-3); SPECIFIC GRAVITY URINE AUTO 1.012 (1.002-1.035); SQUAMOUS EPITHELIAL CELL UR AU 0 /HPF (0-6); TRANSITIONAL EPITHELIAL AUTO <1 /HPF; UROBILINOGEN, URINE AUTO 0.2 mg/dL (0.0-2.0); WBC, URINE AUTO TNTC /HPF (0-3)
[2021-05-27] MEDS ORDERED: FOSFOMYCIN TROMETHAMINE 3 GM POWDER PACKET (MONUROL) PO ONE
[2021-05-27] MEDS: PERCOCET 5MG/325MG TAB PO PRN ×4 (00:29→19:41)
[2021-05-27] MEDS: ALPRAZolam 0.5 MG TAB PO SCH ×3 (05:05→21:34)
[2021-05-27 06:00] VITALS: BP 116/66
[2021-05-27] MEDS: QUEtiapine FUMARATE 25 MG TAB PO SCH ×2 (08:16→21:33)
[2021-05-27] MEDS: HEPARIN SOD (PORCINE) 5000UNITS/ML 1ML VIAL/SYRINGE SQ SCH ×2 (09:00→21:00)
[2021-05-27] MEDS: RAMELTEON 8 MG TAB (ROZEREM) PO PRN (21:33)
[2021-05-27] MEDS: ACETAMINOPHEN TAB 650MG DOSE (2X325MG) PO PRN (21:34)
[2021-05-28] MEDS: PERCOCET 5MG/325MG TAB PO PRN ×4 (00:16→21:20)
[2021-05-28] MEDS: ALPRAZolam 0.5 MG TAB PO SCH ×3 (05:33→21:19)
[2021-05-28] MEDS: MIRALAX *UNIT DOSE* 17GM PACKET PO PRN (08:27)
[2021-05-28] MEDS: QUEtiapine FUMARATE 25 MG TAB PO SCH ×2 (08:27→21:19)
[2021-05-28] MEDS: HEPARIN SOD (PORCINE) 5000UNITS/ML 1ML VIAL/SYRINGE SQ SCH ×2 (08:38→21:00)
[2021-05-28] MEDS: RAMELTEON 8 MG TAB (ROZEREM) PO PRN (21:19)
[2021-05-29] MEDS: ALPRAZolam 0.5 MG TAB PO SCH ×3 (05:43→21:42)
[2021-05-29] MEDS: PERCOCET 5MG/325MG TAB PO PRN ×4 (05:43→21:43)
[2021-05-29] MEDS: HEPARIN SOD (PORCINE) 5000UNITS/ML 1ML VIAL/SYRINGE SQ SCH ×2 (09:00→21:00)
[2021-05-29] MEDS: QUEtiapine FUMARATE 25 MG TAB PO SCH ×2 (10:02→21:43)
[2021-05-29] MEDS: RAMELTEON 8 MG TAB (ROZEREM) PO PRN (21:43)
[2021-05-30] MEDS: ALPRAZolam 0.5 MG TAB PO SCH ×3 (05:48→21:03)
[2021-05-30] MEDS: PERCOCET 5MG/325MG TAB PO PRN ×3 (05:48→21:00)
[2021-05-30] MEDS: HEPARIN SOD (PORCINE) 5000UNITS/ML 1ML VIAL/SYRINGE SQ SCH ×2 (09:00→20:54)
[2021-05-30] MEDS: QUEtiapine FUMARATE 25 MG TAB PO SCH ×2 (09:54→20:59)
[2021-05-30] MEDS: DOCUSATE SODIUM 100MG CAPSULE PO PRN (14:10)
[2021-05-30] MEDS: MIRALAX *UNIT DOSE* 17GM PACKET PO PRN (14:11)
[2021-05-30] MEDS: MOM 30ML SUSPENSION UDC PO PRN (20:59)
[2021-05-30] MEDS: RAMELTEON 8 MG TAB (ROZEREM) PO PRN (20:59)
[2021-05-31] MEDS: ALPRAZolam 0.5 MG TAB PO SCH ×3 (04:38→21:23)
[2021-05-31] MEDS: PERCOCET 5MG/325MG TAB PO PRN ×4 (04:39→20:21)
[2021-05-31 06:00] VITALS: BP 121/59
[2021-05-31] MEDS: QUEtiapine FUMARATE 25 MG TAB PO SCH ×2 (08:44→20:20)
[2021-05-31] MEDS: HEPARIN SOD (PORCINE) 5000UNITS/ML 1ML VIAL/SYRINGE SQ SCH ×2 (09:00→20:19)
[2021-05-31] MEDS: RAMELTEON 8 MG TAB (ROZEREM) PO PRN (20:20)
[2021-06-01] MEDS: ALPRAZolam 0.5 MG TAB PO PRN (02:31)
[2021-06-01] MEDS: PERCOCET 5MG/325MG TAB PO PRN ×4 (02:32→20:27)
[2021-06-01] MEDS: ALPRAZolam 0.5 MG TAB PO SCH ×3 (05:05→21:54)
[2021-06-01] MEDS: ACETAMINOPHEN TAB 650MG DOSE (2X325MG) PO PRN (05:06)
[2021-06-01 06:00] VITALS: BP 118/53
[2021-06-01] MEDS: QUEtiapine FUMARATE 25 MG TAB PO SCH ×2 (08:51→20:26)
[2021-06-01] MEDS: HEPARIN SOD (PORCINE) 5000UNITS/ML 1ML VIAL/SYRINGE SQ SCH ×2 (09:00→20:27)
[2021-06-01] MEDS: RAMELTEON 8 MG TAB (ROZEREM) PO PRN (20:26)
[2021-06-02] MEDS: HEPARIN SOD (PORCINE) 5000UNITS/ML 1ML VIAL/SYRINGE SQ SCH ×2 (08:05→20:17)
[2021-06-02] MEDS: QUEtiapine FUMARATE 25 MG TAB PO SCH ×2 (09:15→20:23)
[2021-06-02] MEDS: ALPRAZolam 0.5 MG TAB PO PRN (09:15)
[2021-06-02] MEDS: PERCOCET 5MG/325MG TAB PO PRN ×3 (09:15→20:24)
[2021-06-02] MEDS: ALPRAZolam 0.5 MG TAB PO SCH ×3 (09:22→20:23)
[2021-06-02] MEDS: RAMELTEON 8 MG TAB (ROZEREM) PO PRN (20:23)
[2021-06-03] MEDS: ALPRAZolam 0.5 MG TAB PO SCH ×3 (05:27→20:57)
[2021-06-03] MEDS: PERCOCET 5MG/325MG TAB PO PRN ×4 (05:28→20:58)
[2021-06-03 06:00] VITALS: BP 132/66
[2021-06-03] MEDS: HEPARIN SOD (PORCINE) 5000UNITS/ML 1ML VIAL/SYRINGE SQ SCH ×2 (09:00→20:43)
[2021-06-03] MEDS: QUEtiapine FUMARATE 25 MG TAB PO SCH ×2 (09:36→20:57)
[2021-06-03] MEDS: RAMELTEON 8 MG TAB (ROZEREM) PO PRN (20:57)
[2021-06-04] MEDS: PERCOCET 5MG/325MG TAB PO PRN ×4 (02:30→20:41)
[2021-06-04] MEDS: ALPRAZolam 0.5 MG TAB PO SCH ×3 (05:01→20:40)
[2021-06-04] MEDS: ACETAMINOPHEN TAB 650MG DOSE (2X325MG) PO PRN ×2 (05:01→11:50)
[2021-06-04 06:00] VITALS: BP 126/74
[2021-06-04] MEDS: HEPARIN SOD (PORCINE) 5000UNITS/ML 1ML VIAL/SYRINGE SQ SCH ×2 (07:47→20:54)
[2021-06-04] MEDS: DOCUSATE SODIUM 100MG CAPSULE PO PRN (08:26)
[2021-06-04] MEDS: MIRALAX *UNIT DOSE* 17GM PACKET PO PRN (08:26)
[2021-06-04] MEDS: QUEtiapine FUMARATE 25 MG TAB PO SCH ×2 (08:26→20:40)
[2021-06-04] MEDS: RAMELTEON 8 MG TAB (ROZEREM) PO PRN (20:41)
[2021-06-04] MEDS: ALPRAZolam 0.5 MG TAB PO PRN (22:53)
[2021-06-05] MEDS: PERCOCET 5MG/325MG TAB PO PRN ×4 (03:07→17:41)
[2021-06-05] MEDS: HEPARIN SOD (PORCINE) 5000UNITS/ML 1ML VIAL/SYRINGE SQ SCH ×2 (08:13→21:00)
[2021-06-05] MEDS: QUEtiapine FUMARATE 25 MG TAB PO SCH ×2 (08:13→20:44)
[2021-06-05] MEDS: ALPRAZolam 0.5 MG TAB PO SCH ×3 (08:13→20:45)
[2021-06-05] MEDS: ALPRAZolam 0.5 MG TAB PO PRN (17:41)
[2021-06-05] MEDS: RAMELTEON 8 MG TAB (ROZEREM) PO PRN (20:45)
[2021-06-06] MEDS: PERCOCET 5MG/325MG TAB PO PRN ×5 (00:01→21:04)
[2021-06-06] MEDS: ALPRAZolam 0.5 MG TAB PO PRN (03:00)
[2021-06-06] MEDS: ALPRAZolam 0.5 MG TAB PO SCH ×3 (06:12→21:03)
[2021-06-06 06:25] VITALS: BP 183/92
[2021-06-06] MEDS: HEPARIN SOD (PORCINE) 5000UNITS/ML 1ML VIAL/SYRINGE SQ SCH ×2 (09:00→20:40)
[2021-06-06] MEDS: QUEtiapine FUMARATE 25 MG TAB PO SCH ×2 (10:01→21:03)
[2021-06-06] MEDS ORDERED: HALOPERIDOL DECANOATE 100 MG/ML 1ML VIAL IM PRN (14:35)
[2021-06-06] MEDS ORDERED: diphenhydrAMINE 50MG/ML VIAL IM PRN (14:35)
[2021-06-06] MEDS ORDERED: LORazepam 2 MG/ML VIAL IM PRN (14:35)
[2021-06-06] MEDS: RAMELTEON 8 MG TAB (ROZEREM) PO PRN (21:04)
[2021-06-06] MEDS: DOCUSATE SODIUM 100MG CAPSULE PO PRN (21:06)
[2021-06-07] MEDS: ALPRAZolam 0.5 MG TAB PO PRN (02:04)
[2021-06-07] MEDS: ALPRAZolam 0.5 MG TAB PO SCH ×3 (05:20→21:00)
[2021-06-07] MEDS: PERCOCET 5MG/325MG TAB PO PRN ×4 (05:21→21:00)
[2021-06-07 05:53] VITALS: BP 153/63
[2021-06-07] MEDS: HEPARIN SOD (PORCINE) 5000UNITS/ML 1ML VIAL/SYRINGE SQ SCH ×2 (09:00→21:00)
[2021-06-07] MEDS: QUEtiapine FUMARATE 25 MG TAB PO SCH ×2 (09:58→20:59)
[2021-06-07] MEDS: MIRALAX *UNIT DOSE* 17GM PACKET PO PRN (20:59)
[2021-06-07] MEDS: RAMELTEON 8 MG TAB (ROZEREM) PO PRN (20:59)
[2021-06-08] MEDS: PERCOCET 5MG/325MG TAB PO PRN ×4 (05:10→19:43)
[2021-06-08] MEDS: ALPRAZolam 0.5 MG TAB PO SCH ×3 (05:10→19:43)
[2021-06-08] MEDS: MOM 30ML SUSPENSION UDC PO PRN (07:18)
[2021-06-08] MEDS: HEPARIN SOD (PORCINE) 5000UNITS/ML 1ML VIAL/SYRINGE SQ SCH ×2 (09:00→19:44)
[2021-06-08] MEDS: ALPRAZolam 0.5 MG TAB PO PRN (09:32)
[2021-06-08] MEDS: QUEtiapine FUMARATE 25 MG TAB PO SCH ×2 (09:33→19:42)
[2021-06-08] MEDS: RAMELTEON 8 MG TAB (ROZEREM) PO PRN (19:42)
[2021-06-09] MEDS: PERCOCET 5MG/325MG TAB PO PRN ×5 (01:55→21:08)
[2021-06-09] MEDS: ALPRAZolam 0.5 MG TAB PO PRN (01:56)
[2021-06-09 06:00] VITALS: BP 132/76
[2021-06-09] MEDS: ALPRAZolam 0.5 MG TAB PO SCH ×3 (06:24→21:07)
[2021-06-09] MEDS: HEPARIN SOD (PORCINE) 5000UNITS/ML 1ML VIAL/SYRINGE SQ SCH ×2 (09:00→21:00)
[2021-06-09] MEDS: QUEtiapine FUMARATE 25 MG TAB PO SCH ×2 (10:08→21:07)
[2021-06-09] MEDS: RAMELTEON 8 MG TAB (ROZEREM) PO PRN (21:07)
[2021-06-10] MEDS: ALPRAZolam 0.5 MG TAB PO PRN (00:29)
[2021-06-10] MEDS: PERCOCET 5MG/325MG TAB PO PRN ×5 (00:30→20:27)
[2021-06-10] MEDS: ALPRAZolam 0.5 MG TAB PO SCH ×3 (05:44→22:42)
[2021-06-10 06:12] VITALS: BP 139/75
[2021-06-10] MEDS: HEPARIN SOD (PORCINE) 5000UNITS/ML 1ML VIAL/SYRINGE SQ SCH ×2 (08:11→20:28)
[2021-06-10] MEDS: QUEtiapine FUMARATE 25 MG TAB PO SCH ×2 (10:01→20:26)
[2021-06-10] MEDS: RAMELTEON 8 MG TAB (ROZEREM) PO PRN (20:26)
[2021-06-11] MEDS: ALPRAZolam 0.5 MG TAB PO SCH ×3 (05:01→20:16)
[2021-06-11] MEDS: PERCOCET 5MG/325MG TAB PO PRN (05:01)
[2021-06-11 06:00] VITALS: BP 126/76
[2021-06-11] MEDS: HEPARIN SOD (PORCINE) 5000UNITS/ML 1ML VIAL/SYRINGE SQ SCH ×2 (09:00→20:05)
[2021-06-11] MEDS: QUEtiapine FUMARATE 25 MG TAB PO SCH ×3 (09:00→20:16)
[2021-06-12] MEDS: ALPRAZolam 0.5 MG TAB PO SCH ×3 (06:00→20:15)
[2021-06-12] MEDS: HEPARIN SOD (PORCINE) 5000UNITS/ML 1ML VIAL/SYRINGE SQ SCH ×2 (09:00→19:57)
[2021-06-12] MEDS: QUEtiapine FUMARATE 25 MG TAB PO SCH ×2 (09:00→20:14)
[2021-06-12] MEDS: PERCOCET 5MG/325MG TAB PO PRN (20:15)
[2021-06-13] MEDS: PERCOCET 5MG/325MG TAB PO PRN ×6 (01:16→22:58)
[2021-06-13] MEDS: RAMELTEON 8 MG TAB (ROZEREM) PO PRN ×2 (01:19→22:58)
[2021-06-13] MEDS: ALPRAZolam 0.5 MG TAB PO PRN (01:20)
[2021-06-13] MEDS: ALPRAZolam 0.5 MG TAB PO SCH ×3 (06:54→22:58)
[2021-06-13] MEDS: HEPARIN SOD (PORCINE) 5000UNITS/ML 1ML VIAL/SYRINGE SQ SCH ×2 (09:00→20:29)
[2021-06-13] MEDS: QUEtiapine FUMARATE 25 MG TAB PO SCH ×2 (09:17→22:58)
[2021-06-14] MEDS: PERCOCET 5MG/325MG TAB PO PRN ×5 (03:02→22:42)
[2021-06-14] MEDS: ALPRAZolam 0.5 MG TAB PO PRN (03:02)
[2021-06-14 06:00] VITALS: BP 136/80
[2021-06-14] MEDS: ALPRAZolam 0.5 MG TAB PO SCH ×3 (07:55→21:25)
[2021-06-14] MEDS: QUEtiapine FUMARATE 25 MG TAB PO SCH ×2 (07:56→21:25)
[2021-06-14] MEDS: HEPARIN SOD (PORCINE) 5000UNITS/ML 1ML VIAL/SYRINGE SQ SCH ×2 (07:58→20:39)
[2021-06-14] MEDS: RAMELTEON 8 MG TAB (ROZEREM) PO PRN (21:25)
[2021-06-15 06:00] VITALS: BP 137/81
[2021-06-15] MEDS: ALPRAZolam 0.5 MG TAB PO SCH ×3 (06:24→21:35)
[2021-06-15] MEDS: PERCOCET 5MG/325MG TAB PO PRN ×5 (06:24→22:59)
[2021-06-15] MEDS: HEPARIN SOD (PORCINE) 5000UNITS/ML 1ML VIAL/SYRINGE SQ SCH ×2 (09:00→21:00)
[2021-06-15] MEDS: QUEtiapine FUMARATE 25 MG TAB PO SCH ×2 (09:17→21:34)
[2021-06-15] MEDS: RAMELTEON 8 MG TAB (ROZEREM) PO PRN (21:35)
[2021-06-16] MEDS: ALPRAZolam 0.5 MG TAB PO PRN (02:15)
[2021-06-16 06:00] VITALS: BP 122/61
[2021-06-16] MEDS: ALPRAZolam 0.5 MG TAB PO SCH ×3 (06:47→21:16)
[2021-06-16] MEDS: HEPARIN SOD (PORCINE) 5000UNITS/ML 1ML VIAL/SYRINGE SQ SCH ×2 (09:00→21:00)
[2021-06-16] MEDS: QUEtiapine FUMARATE 25 MG TAB PO SCH ×2 (10:15→21:15)
[2021-06-16] MEDS: PERCOCET 5MG/325MG TAB PO PRN ×3 (10:16→19:41)
[2021-06-16] MEDS: RAMELTEON 8 MG TAB (ROZEREM) PO PRN (21:15)
[2021-06-17] MEDS: PERCOCET 5MG/325MG TAB PO PRN ×4 (02:02→18:24)
[2021-06-17] MEDS: ALPRAZolam 0.5 MG TAB PO PRN (02:02)
[2021-06-17] MEDS: ALPRAZolam 0.5 MG TAB PO SCH ×3 (05:11→21:22)
[2021-06-17 06:25] VITALS: BP 169/78
[2021-06-17] MEDS: HEPARIN SOD (PORCINE) 5000UNITS/ML 1ML VIAL/SYRINGE SQ SCH ×2 (08:45→21:00)
[2021-06-17] MEDS: QUEtiapine FUMARATE 25 MG TAB PO SCH ×2 (08:49→21:22)
[2021-06-17] MEDS: MIRALAX *UNIT DOSE* 17GM PACKET PO PRN (16:26)
[2021-06-17] MEDS: DOCUSATE SODIUM 100MG CAPSULE PO PRN (16:26)
[2021-06-17] MEDS: RAMELTEON 8 MG TAB (ROZEREM) PO PRN (21:22)
[2021-06-18] MEDS: PERCOCET 5MG/325MG TAB PO PRN ×4 (01:57→21:14)
[2021-06-18] MEDS: ALPRAZolam 0.5 MG TAB PO SCH ×3 (05:08→21:15)
[2021-06-18 06:00] VITALS: BP 135/80
[2021-06-18] MEDS: HEPARIN SOD (PORCINE) 5000UNITS/ML 1ML VIAL/SYRINGE SQ SCH ×2 (09:00→21:15)
[2021-06-18] MEDS: QUEtiapine FUMARATE 25 MG TAB PO SCH ×2 (10:33→21:15)
[2021-06-18] MEDS: DOCUSATE SODIUM 100MG CAPSULE PO PRN (10:33)
[2021-06-18] MEDS: MOM 30ML SUSPENSION UDC PO PRN (10:33)
[2021-06-18] MEDS: RAMELTEON 8 MG TAB (ROZEREM) PO PRN (21:14)
[2021-06-19] MEDS: PERCOCET 5MG/325MG TAB PO PRN ×3 (03:34→19:59)
[2021-06-19] MEDS: ALPRAZolam 0.5 MG TAB PO SCH ×3 (05:41→21:57)
[2021-06-19 06:00] VITALS: BP 135/65
[2021-06-19] MEDS: HEPARIN SOD (PORCINE) 5000UNITS/ML 1ML VIAL/SYRINGE SQ SCH ×2 (09:00→21:00)
[2021-06-19] MEDS: QUEtiapine FUMARATE 25 MG TAB PO SCH ×2 (11:30→21:57)
[2021-06-19] MEDS: ALPRAZolam 0.5 MG TAB PO PRN (19:59)
[2021-06-19] MEDS: RAMELTEON 8 MG TAB (ROZEREM) PO PRN (21:57)
[2021-06-20] MEDS: PERCOCET 5MG/325MG TAB PO PRN (03:36)
[2021-06-20] MEDS: ALPRAZolam 0.5 MG TAB PO SCH ×3 (05:53→21:30)
[2021-06-20] MEDS: HEPARIN SOD (PORCINE) 5000UNITS/ML 1ML VIAL/SYRINGE SQ SCH ×2 (09:00→21:00)
[2021-06-20] MEDS: QUEtiapine FUMARATE 25 MG TAB PO SCH ×2 (09:00→21:00)
[2021-06-21] MEDS: ALPRAZolam 0.5 MG TAB PO SCH ×4 (05:42→21:08)
[2021-06-21] MEDS: QUEtiapine FUMARATE 25 MG TAB PO SCH ×2 (09:00→21:07)
[2021-06-21] MEDS: HEPARIN SOD (PORCINE) 5000UNITS/ML 1ML VIAL/SYRINGE SQ SCH ×2 (09:00→21:00)
[2021-06-21] MEDS: PERCOCET 5MG/325MG TAB PO PRN ×2 (16:01→22:15)
[2021-06-21] MEDS: RAMELTEON 8 MG TAB (ROZEREM) PO PRN (21:07)
[2021-06-21] MEDS: ACETAMINOPHEN TAB 650MG DOSE (2X325MG) PO PRN (21:07)
[2021-06-22] MEDS: ALPRAZolam 0.5 MG TAB PO PRN (01:42)
[2021-06-22] MEDS: PERCOCET 5MG/325MG TAB PO PRN ×3 (05:03→20:19)
[2021-06-22 06:00] VITALS: BP 139/74
[2021-06-22] MEDS: ALPRAZolam 0.5 MG TAB PO SCH ×3 (06:32→21:03)
[2021-06-22] MEDS: HEPARIN SOD (PORCINE) 5000UNITS/ML 1ML VIAL/SYRINGE SQ SCH ×2 (09:00→20:20)
[2021-06-22] MEDS: QUEtiapine FUMARATE 25 MG TAB PO SCH ×2 (10:00→20:19)
[2021-06-22] MEDS: ACETAMINOPHEN TAB 650MG DOSE (2X325MG) PO PRN (10:00)
[2021-06-22] MEDS: RAMELTEON 8 MG TAB (ROZEREM) PO PRN (20:18)
[2021-06-23] MEDS: PERCOCET 5MG/325MG TAB PO PRN ×4 (03:18→21:10)
[2021-06-23] MEDS: ALPRAZolam 0.5 MG TAB PO SCH ×3 (05:11→21:09)
[2021-06-23] MEDS: HEPARIN SOD (PORCINE) 5000UNITS/ML 1ML VIAL/SYRINGE SQ SCH ×2 (08:04→21:00)
[2021-06-23] MEDS: QUEtiapine FUMARATE 25 MG TAB PO SCH ×2 (09:16→21:09)
[2021-06-23] MEDS: RAMELTEON 8 MG TAB (ROZEREM) PO PRN (21:09)
[2021-06-24] MEDS: ALPRAZolam 0.5 MG TAB PO PRN (00:37)
[2021-06-24] MEDS: PERCOCET 5MG/325MG TAB PO PRN ×3 (03:35→21:18)
[2021-06-24] MEDS: ALPRAZolam 0.5 MG TAB PO SCH ×3 (05:36→21:17)
[2021-06-24 06:04] VITALS: BP 130/72
[2021-06-24] MEDS: HEPARIN SOD (PORCINE) 5000UNITS/ML 1ML VIAL/SYRINGE SQ SCH ×2 (09:00→21:00)
[2021-06-24] MEDS: QUEtiapine FUMARATE 25 MG TAB PO SCH ×2 (09:00→21:17)
[2021-06-24] MEDS: RAMELTEON 8 MG TAB (ROZEREM) PO PRN (21:17)
[2021-06-25 04:01] VITALS: BP 162/87
[2021-06-25] MEDS: PERCOCET 5MG/325MG TAB PO PRN ×3 (04:01→21:34)
[2021-06-25] MEDS: ALPRAZolam 0.5 MG TAB PO SCH ×3 (06:53→21:35)
[2021-06-25] MEDS: HEPARIN SOD (PORCINE) 5000UNITS/ML 1ML VIAL/SYRINGE SQ SCH ×2 (09:00→21:00)
[2021-06-25] MEDS: QUEtiapine FUMARATE 25 MG TAB PO SCH ×2 (10:18→21:35)
[2021-06-25] MEDS: RAMELTEON 8 MG TAB (ROZEREM) PO PRN (21:35)
[2021-06-26] MEDS: ALPRAZolam 0.5 MG TAB PO PRN (01:02)
[2021-06-26] MEDS: PERCOCET 5MG/325MG TAB PO PRN ×3 (05:49→21:15)
[2021-06-26] MEDS: ALPRAZolam 0.5 MG TAB PO SCH ×3 (05:49→21:16)
[2021-06-26] MEDS: QUEtiapine FUMARATE 25 MG TAB PO SCH ×2 (08:12→21:15)
[2021-06-26] MEDS: HEPARIN SOD (PORCINE) 5000UNITS/ML 1ML VIAL/SYRINGE SQ SCH ×2 (09:00→21:00)
[2021-06-26] MEDS: RAMELTEON 8 MG TAB (ROZEREM) PO PRN (21:16)
[2021-06-27] MEDS: PERCOCET 5MG/325MG TAB PO PRN ×3 (03:32→17:05)
[2021-06-27] MEDS: ALPRAZolam 0.5 MG TAB PO PRN (03:32)
[2021-06-27 06:00] VITALS: BP 151/78
[2021-06-27] MEDS: ALPRAZolam 0.5 MG TAB PO SCH ×3 (06:27→20:42)
[2021-06-27] MEDS: HEPARIN SOD (PORCINE) 5000UNITS/ML 1ML VIAL/SYRINGE SQ SCH ×3 (09:00→20:44)
[2021-06-27] MEDS: QUEtiapine FUMARATE 25 MG TAB PO SCH ×2 (09:35→20:42)
[2021-06-27] MEDS: DOCUSATE SODIUM 100MG CAPSULE PO PRN (17:07)
[2021-06-28] MEDS: RAMELTEON 8 MG TAB (ROZEREM) PO PRN ×2 (00:37→19:37)
[2021-06-28] MEDS: PERCOCET 5MG/325MG TAB PO PRN ×5 (00:37→23:29)
[2021-06-28] MEDS: ALPRAZolam 0.5 MG TAB PO PRN ×3 (03:16→23:26)
[2021-06-28] MEDS: DOCUSATE SODIUM 100MG CAPSULE PO PRN (04:59)
[2021-06-28] MEDS: ALPRAZolam 0.5 MG TAB PO SCH ×3 (05:56→21:00)
[2021-06-28] MEDS: QUEtiapine FUMARATE 25 MG TAB PO SCH ×2 (07:42→19:39)
[2021-06-28] MEDS: HEPARIN SOD (PORCINE) 5000UNITS/ML 1ML VIAL/SYRINGE SQ SCH ×2 (07:43→19:39)
[2021-06-28] MEDS: MIRALAX *UNIT DOSE* 17GM PACKET PO PRN (14:30)
[2021-06-28] MEDS ORDERED: MOM 30ML SUSPENSION UDC PO ONE (15:00)
[2021-06-29] MEDS: ALPRAZolam 0.5 MG TAB PO SCH (06:00)
[2021-06-29] MEDS: QUEtiapine FUMARATE 25 MG TAB PO SCH ×2 (07:39→21:00)
[2021-06-29] MEDS: HEPARIN SOD (PORCINE) 5000UNITS/ML 1ML VIAL/SYRINGE SQ SCH ×2 (07:39→21:00)
[2021-06-30] MEDS: HEPARIN SOD (PORCINE) 5000UNITS/ML 1ML VIAL/SYRINGE SQ SCH ×2 (09:00→21:00)
[2021-06-30] MEDS: QUEtiapine FUMARATE 25 MG TAB PO SCH ×2 (09:00→21:00)
[2021-06-30] MEDS: ACETAMINOPHEN TAB 650MG DOSE (2X325MG) PO PRN (16:28)
[2021-06-30] MEDS: RAMELTEON 8 MG TAB (ROZEREM) PO PRN (23:49)
[2021-07-01] MEDS: ALPRAZolam 0.5 MG TAB PO PRN ×2 (03:33→20:16)
[2021-07-01 05:13] LABS: BASO # 0.1 10^3/uL (0.0-0.2); BASO % 0.5 % (0.0-1.0); EOS # 0.3 10^3/uL (0.0-0.5); EOS % 2.2 % (0.0-3.0); HEMATOCRIT 46.6 % (42.0-52.0); HEMOGLOBIN 15.5 g/dl (13.5-17.5); LYMPH # 2.4 10^3/uL (1.5-5.0); LYMPH % 18.8 % (24.0-44.0); MEAN CORPUSCULAR HEMOGLOBIN 29.4 pg (27.0-33.0); MEAN CORPUSCULAR HGB CONC 33.3 g/dl (32.0-36.5); MEAN CORPUSCULAR VOLUME 88.4 fl (80.0-96.0); MONO # 1.1 10^3/uL (0.0-0.8); MONO % 8.5 % (2.0-8.0); NEUTROPHILS % 69.4 % (36.0-66.0); PLATELET COUNT, AUTOMATED 284 10^3/uL (150-450); RED BLOOD COUNT 5.27 10^6/uL (4.30-6.10)
[2021-07-01 05:35] LABS: BLOOD UREA NITROGEN 32 MG/DL (7-18); CARBON DIOXIDE LEVEL 25 MEQ/L (21-32); CHLORIDE LEVEL 107 MEQ/L (98-107); CREATININE FOR GFR 1.08 MG/DL (0.70-1.30); GLOMERULAR FILTRATION RATE > 60.0 (>35); GLUCOSE, FASTING 138 MG/DL (70-100); MAGNESIUM LEVEL 1.8 MG/DL (1.8-2.4); POTASSIUM SERUM 4.3 MEQ/L (3.5-5.1); SODIUM LEVEL 139 MEQ/L (136-145)
[2021-07-01 06:00] VITALS: BP_SYST 154; BP_SYST 169; BP_SYST 202; BP_DIAS 77; BP_DIAS 97; BP_DIAS 98
[2021-07-01 06:52] VITALS: BP_SYST 154; BP_SYST 169; BP_DIAS 77; BP_DIAS 97
[2021-07-01 06:53] VITALS: BP 202/98
[2021-07-01] MEDS: HEPARIN SOD (PORCINE) 5000UNITS/ML 1ML VIAL/SYRINGE SQ SCH ×3 (07:37→20:22)
[2021-07-01] MEDS: QUEtiapine FUMARATE 25 MG TAB PO SCH ×3 (07:37→20:15)
[2021-07-01] MEDS: ACETAMINOPHEN TAB 650MG DOSE (2X325MG) PO PRN ×3 (07:37→16:41)
[2021-07-01] MEDS ORDERED: ATENOLOL 12.5MG PER 1/2 TABLET PO ONE (12:20)
[2021-07-01] MEDS: LOPERAMIDE 2 MG CAPLET PO PRN (12:27)
[2021-07-01 12:35] VITALS: BP 177/90
[2021-07-01] MEDS: RAMELTEON 8 MG TAB (ROZEREM) PO PRN (20:13)
[2021-07-02 03:21] VITALS: BP 143/65
[2021-07-02] MEDS: ALPRAZolam 0.5 MG TAB PO PRN ×3 (04:23→20:05)
[2021-07-02] MEDS: ACETAMINOPHEN TAB 650MG DOSE (2X325MG) PO PRN ×2 (04:27→10:30)
[2021-07-02] MEDS: HEPARIN SOD (PORCINE) 5000UNITS/ML 1ML VIAL/SYRINGE SQ SCH ×2 (09:00→20:06)
[2021-07-02] MEDS: QUEtiapine FUMARATE 25 MG TAB PO SCH ×2 (10:30→20:06)
[2021-07-02] MEDS: PERCOCET 5MG/325MG TAB PO PRN ×2 (12:50→18:57)
[2021-07-03] MEDS: ACETAMINOPHEN TAB 650MG DOSE (2X325MG) PO PRN ×3 (00:50→21:43)
[2021-07-03] MEDS: QUEtiapine FUMARATE 25 MG TAB PO SCH ×2 (08:37→21:40)
[2021-07-03] MEDS: HEPARIN SOD (PORCINE) 5000UNITS/ML 1ML VIAL/SYRINGE SQ SCH ×2 (08:37→21:00)
[2021-07-03 12:45] VITALS: BP 137/67
[2021-07-03] MEDS: ALPRAZolam 0.5 MG TAB PO PRN (18:35)
[2021-07-03] MEDS: RAMELTEON 8 MG TAB (ROZEREM) PO PRN (21:40)
[2021-07-03] MEDS: LOPERAMIDE 2 MG CAPLET PO PRN (21:49)
[2021-07-04] MEDS: ACETAMINOPHEN TAB 650MG DOSE (2X325MG) PO PRN ×4 (02:14→18:42)
[2021-07-04 04:52] VITALS: BP 156/70
[2021-07-04] MEDS: ALPRAZolam 0.5 MG TAB PO PRN (06:16)
[2021-07-04] MEDS: HEPARIN SOD (PORCINE) 5000UNITS/ML 1ML VIAL/SYRINGE SQ SCH ×2 (09:00→21:00)
[2021-07-04] MEDS: QUEtiapine FUMARATE 25 MG TAB PO SCH ×2 (09:27→21:20)
[2021-07-04] MEDS: LOPERAMIDE 2 MG CAPLET PO PRN ×3 (13:41→21:22)
[2021-07-04 13:42] VITALS: BP 127/77
[2021-07-04 18:42] VITALS: BP 115/62
[2021-07-04] MEDS: RAMELTEON 8 MG TAB (ROZEREM) PO PRN (21:20)
[2021-07-04] MEDS ORDERED: diphenhydrAMINE 50MG CAP PO ONE (23:40)
[2021-07-05] MEDS: ACETAMINOPHEN TAB 650MG DOSE (2X325MG) PO PRN ×3 (00:46→20:21)
[2021-07-05] MEDS: HEPARIN SOD (PORCINE) 5000UNITS/ML 1ML VIAL/SYRINGE SQ SCH ×2 (09:00→21:00)
[2021-07-05] MEDS: QUEtiapine FUMARATE 25 MG TAB PO SCH ×2 (09:17→20:19)
[2021-07-05] MEDS: ALPRAZolam 0.5 MG TAB PO PRN ×2 (12:50→20:20)
[2021-07-05] MEDS: RAMELTEON 8 MG TAB (ROZEREM) PO PRN (20:19)
[2021-07-06] MEDS: ALPRAZolam 0.5 MG TAB PO PRN (04:18)
[2021-07-06] MEDS: QUEtiapine FUMARATE 25 MG TAB PO SCH ×2 (08:45→21:00)
[2021-07-06] MEDS: HEPARIN SOD (PORCINE) 5000UNITS/ML 1ML VIAL/SYRINGE SQ SCH ×2 (08:48→21:00)
[2021-07-06] MEDS: ACETAMINOPHEN TAB 650MG DOSE (2X325MG) PO PRN ×2 (17:56→21:12)
[2021-07-07] MEDS: ACETAMINOPHEN TAB 650MG DOSE (2X325MG) PO PRN (00:31)
[2021-07-07] MEDS: ALPRAZolam 0.5 MG TAB PO PRN ×3 (05:10→21:14)
[2021-07-07 05:54] VITALS: BP 140/80
[2021-07-07 06:33] VITALS: BP 140/80
[2021-07-07] MEDS: HEPARIN SOD (PORCINE) 5000UNITS/ML 1ML VIAL/SYRINGE SQ SCH ×2 (09:00→21:00)
[2021-07-07] MEDS: QUEtiapine FUMARATE 25 MG TAB PO SCH ×2 (09:14→21:13)
[2021-07-07] MEDS: LOPERAMIDE 2 MG CAPLET PO PRN (13:33)
[2021-07-07] MEDS: RAMELTEON 8 MG TAB (ROZEREM) PO PRN (21:13)
[2021-07-08] MEDS: ACETAMINOPHEN TAB 650MG DOSE (2X325MG) PO PRN ×4 (02:10→20:13)
[2021-07-08] MEDS: HEPARIN SOD (PORCINE) 5000UNITS/ML 1ML VIAL/SYRINGE SQ SCH ×2 (07:55→21:00)
[2021-07-08 08:00] VITALS: BP 154/80
[2021-07-08] MEDS: QUEtiapine FUMARATE 25 MG TAB PO SCH ×2 (08:44→20:13)
[2021-07-08] MEDS: ALPRAZolam 0.5 MG TAB PO PRN ×2 (08:44→18:06)
[2021-07-08] MEDS: PERCOCET 5MG/325MG TAB PO PRN (18:06)
[2021-07-08] MEDS: RAMELTEON 8 MG TAB (ROZEREM) PO PRN (20:13)
[2021-07-08] MEDS ORDERED: ALPRAZolam 0.25 MG TAB PO ONE (22:20)
[2021-07-09] MEDS: PERCOCET 5MG/325MG TAB PO PRN ×3 (03:43→18:48)
[2021-07-09] MEDS: ALPRAZolam 0.5 MG TAB PO PRN ×3 (03:44→18:48)
[2021-07-09] MEDS: HEPARIN SOD (PORCINE) 5000UNITS/ML 1ML VIAL/SYRINGE SQ SCH ×2 (08:42→21:00)
[2021-07-09 09:00] VITALS: BP_SYST 129; BP_DIAS 79; BP_DIAS 83
[2021-07-09] MEDS: ACETAMINOPHEN TAB 650MG DOSE (2X325MG) PO PRN ×2 (09:27→17:09)
[2021-07-09] MEDS: QUEtiapine FUMARATE 25 MG TAB PO SCH ×2 (09:27→21:45)
[2021-07-09] MEDS: RAMELTEON 8 MG TAB (ROZEREM) PO PRN (21:45)
[2021-07-10] MEDS: ALPRAZolam 0.5 MG TAB PO PRN ×4 (01:14→22:03)
[2021-07-10] MEDS: PERCOCET 5MG/325MG TAB PO PRN ×4 (01:14→22:04)
[2021-07-10] MEDS: ACETAMINOPHEN TAB 650MG DOSE (2X325MG) PO PRN ×2 (03:48→12:14)
[2021-07-10 07:30] VITALS: BP 132/76
[2021-07-10] MEDS: QUEtiapine FUMARATE 25 MG TAB PO SCH ×2 (08:00→22:03)
[2021-07-10] MEDS: HEPARIN SOD (PORCINE) 5000UNITS/ML 1ML VIAL/SYRINGE SQ SCH ×2 (08:02→21:00)
[2021-07-10] MEDS: DOCUSATE SODIUM 100MG CAPSULE PO PRN (12:14)
[2021-07-10] MEDS: RAMELTEON 8 MG TAB (ROZEREM) PO PRN (22:03)
[2021-07-11] MEDS: ALPRAZolam 0.5 MG TAB PO PRN ×4 (04:26→22:35)
[2021-07-11] MEDS: PERCOCET 5MG/325MG TAB PO PRN ×4 (04:27→22:35)
[2021-07-11 04:33] VITALS: BP 127/78
[2021-07-11] MEDS: HEPARIN SOD (PORCINE) 5000UNITS/ML 1ML VIAL/SYRINGE SQ SCH ×2 (09:00→20:49)
[2021-07-11] MEDS: QUEtiapine FUMARATE 25 MG TAB PO SCH ×2 (10:08→20:50)
[2021-07-11] MEDS: RAMELTEON 8 MG TAB (ROZEREM) PO PRN (20:50)
[2021-07-12] MEDS: ALPRAZolam 0.5 MG TAB PO PRN ×3 (06:10→20:22)
[2021-07-12] MEDS: PERCOCET 5MG/325MG TAB PO PRN ×3 (06:11→20:23)
[2021-07-12 06:20] VITALS: BP 126/96
[2021-07-12] MEDS: HEPARIN SOD (PORCINE) 5000UNITS/ML 1ML VIAL/SYRINGE SQ SCH ×2 (07:47→20:23)
[2021-07-12] MEDS: QUEtiapine FUMARATE 25 MG TAB PO SCH ×2 (08:29→20:22)
[2021-07-13] MEDS: RAMELTEON 8 MG TAB (ROZEREM) PO PRN ×2 (02:33→20:36)
[2021-07-13] MEDS: ALPRAZolam 0.5 MG TAB PO PRN ×4 (02:34→23:26)
[2021-07-13] MEDS: PERCOCET 5MG/325MG TAB PO PRN ×4 (02:35→23:27)
[2021-07-13] MEDS: HEPARIN SOD (PORCINE) 5000UNITS/ML 1ML VIAL/SYRINGE SQ SCH ×2 (09:00→20:36)
[2021-07-13] MEDS: QUEtiapine FUMARATE 25 MG TAB PO SCH ×2 (09:57→20:36)
[2021-07-13] MEDS: DOCUSATE SODIUM 100MG CAPSULE PO PRN (18:24)
[2021-07-13] MEDS: MIRALAX *UNIT DOSE* 17GM PACKET PO PRN (18:24)
[2021-07-14 06:00] VITALS: BP 123/78
[2021-07-14] MEDS: ALPRAZolam 0.5 MG TAB PO PRN ×3 (06:02→17:58)
[2021-07-14] MEDS: PERCOCET 5MG/325MG TAB PO PRN ×3 (06:02→17:58)
[2021-07-14] MEDS: HEPARIN SOD (PORCINE) 5000UNITS/ML 1ML VIAL/SYRINGE SQ SCH ×2 (09:00→21:00)
[2021-07-14] MEDS: QUEtiapine FUMARATE 25 MG TAB PO SCH ×2 (10:21→21:10)
[2021-07-14] MEDS: MIRALAX *UNIT DOSE* 17GM PACKET PO PRN (10:26)
[2021-07-14] MEDS: DOCUSATE SODIUM 100MG CAPSULE PO PRN (10:26)
[2021-07-15] MEDS: PERCOCET 5MG/325MG TAB PO PRN ×3 (04:15→18:02)
[2021-07-15] MEDS: ALPRAZolam 0.5 MG TAB PO PRN ×3 (04:16→18:02)
[2021-07-15] MEDS: DOCUSATE SODIUM 100MG CAPSULE PO PRN (04:19)
[2021-07-15 06:00] VITALS: BP 129/76
[2021-07-15] MEDS: QUEtiapine FUMARATE 25 MG TAB PO SCH ×2 (08:23→20:54)
[2021-07-15] MEDS: HEPARIN SOD (PORCINE) 5000UNITS/ML 1ML VIAL/SYRINGE SQ SCH ×2 (08:23→20:49)
[2021-07-15] MEDS: MIRALAX *UNIT DOSE* 17GM PACKET PO PRN (08:27)
[2021-07-15] MEDS ORDERED: SENOKOT S TAB PO ONE (18:05)
[2021-07-15] MEDS ORDERED: MOM 30ML SUSPENSION UDC PO ONE (18:05)
[2021-07-15] MEDS: RAMELTEON 8 MG TAB (ROZEREM) PO PRN (20:54)
[2021-07-16] MEDS: PERCOCET 5MG/325MG TAB PO PRN ×4 (00:05→18:42)
[2021-07-16] MEDS: ALPRAZolam 0.5 MG TAB PO PRN ×4 (00:06→18:41)
[2021-07-16 06:00] VITALS: BP 129/63
[2021-07-16] MEDS: HEPARIN SOD (PORCINE) 5000UNITS/ML 1ML VIAL/SYRINGE SQ SCH ×2 (08:01→20:50)
[2021-07-16] MEDS: QUEtiapine FUMARATE 25 MG TAB PO SCH ×2 (08:11→20:54)
[2021-07-16] MEDS: RAMELTEON 8 MG TAB (ROZEREM) PO PRN (20:54)
[2021-07-17] MEDS: ALPRAZolam 0.5 MG TAB PO PRN ×3 (04:02→18:52)
[2021-07-17] MEDS: PERCOCET 5MG/325MG TAB PO PRN ×3 (04:03→18:52)
[2021-07-17 06:00] VITALS: BP 182/84
[2021-07-17] MEDS: HEPARIN SOD (PORCINE) 5000UNITS/ML 1ML VIAL/SYRINGE SQ SCH ×2 (08:59→21:00)
[2021-07-17] MEDS: QUEtiapine FUMARATE 25 MG TAB PO SCH ×2 (09:13→20:41)
[2021-07-17] MEDS: RAMELTEON 8 MG TAB (ROZEREM) PO PRN (20:41)
[2021-07-18] MEDS: PERCOCET 5MG/325MG TAB PO PRN ×3 (03:29→18:03)
[2021-07-18] MEDS: ALPRAZolam 0.5 MG TAB PO PRN ×3 (03:29→18:03)
[2021-07-18 06:00] VITALS: BP 154/85
[2021-07-18] MEDS: HEPARIN SOD (PORCINE) 5000UNITS/ML 1ML VIAL/SYRINGE SQ SCH ×2 (09:00→20:05)
[2021-07-18] MEDS: QUEtiapine FUMARATE 25 MG TAB PO SCH ×2 (09:44→20:04)
[2021-07-18] MEDS: RAMELTEON 8 MG TAB (ROZEREM) PO PRN (20:04)
[2021-07-19] MEDS: ALPRAZolam 0.5 MG TAB PO PRN ×4 (00:09→18:46)
[2021-07-19] MEDS: PERCOCET 5MG/325MG TAB PO PRN ×4 (00:09→18:45)
[2021-07-19 06:00] VITALS: BP 128/69
[2021-07-19] MEDS: HEPARIN SOD (PORCINE) 5000UNITS/ML 1ML VIAL/SYRINGE SQ SCH ×2 (08:35→21:00)
[2021-07-19] MEDS: QUEtiapine FUMARATE 25 MG TAB PO SCH ×2 (09:19→22:02)
[2021-07-19] MEDS: ACETAMINOPHEN TAB 650MG DOSE (2X325MG) PO PRN (22:01)
[2021-07-19] MEDS: RAMELTEON 8 MG TAB (ROZEREM) PO PRN (22:01)
[2021-07-20] MEDS: ALPRAZolam 0.5 MG TAB PO PRN ×4 (00:24→20:14)
[2021-07-20] MEDS: PERCOCET 5MG/325MG TAB PO PRN ×4 (00:25→20:15)
[2021-07-20 06:33] VITALS: BP 168/71
[2021-07-20] MEDS: HEPARIN SOD (PORCINE) 5000UNITS/ML 1ML VIAL/SYRINGE SQ SCH ×2 (09:00→20:56)
[2021-07-20] MEDS: QUEtiapine FUMARATE 25 MG TAB PO SCH ×2 (09:43→20:14)
[2021-07-20] MEDS: RAMELTEON 8 MG TAB (ROZEREM) PO PRN (20:14)
[2021-07-21] MEDS: PERCOCET 5MG/325MG TAB PO PRN ×3 (07:44→21:49)
[2021-07-21] MEDS: ALPRAZolam 0.5 MG TAB PO PRN ×3 (07:44→21:47)
[2021-07-21] MEDS: QUEtiapine FUMARATE 25 MG TAB PO SCH ×2 (09:51→21:49)
[2021-07-21] MEDS: RAMELTEON 8 MG TAB (ROZEREM) PO PRN (21:49)
[2021-07-22] MEDS: ACETAMINOPHEN TAB 650MG DOSE (2X325MG) PO PRN (00:15)
[2021-07-22] MEDS: ALPRAZolam 0.5 MG TAB PO PRN ×3 (04:32→18:16)
[2021-07-22] MEDS: PERCOCET 5MG/325MG TAB PO PRN ×3 (04:33→18:16)
[2021-07-22 06:26] VITALS: BP 120/68
[2021-07-22] MEDS: QUEtiapine FUMARATE 25 MG TAB PO SCH ×2 (08:51→21:06)
[2021-07-22] MEDS: RAMELTEON 8 MG TAB (ROZEREM) PO PRN (21:06)
[2021-07-23] MEDS: SENOKOT S TAB PO PRN (00:21)
[2021-07-23] MEDS: ALPRAZolam 0.5 MG TAB PO PRN ×4 (00:23→20:27)
[2021-07-23] MEDS: PERCOCET 5MG/325MG TAB PO PRN ×4 (00:23→20:28)
[2021-07-23 06:00] VITALS: BP 149/91
[2021-07-23] MEDS: QUEtiapine FUMARATE 25 MG TAB PO SCH ×2 (08:48→20:27)
[2021-07-23] MEDS: RAMELTEON 8 MG TAB (ROZEREM) PO PRN (20:27)
[2021-07-24] MEDS: ALPRAZolam 0.5 MG TAB PO PRN ×4 (02:42→23:27)
[2021-07-24] MEDS: PERCOCET 5MG/325MG TAB PO PRN ×4 (02:43→23:28)
[2021-07-24] MEDS: QUEtiapine FUMARATE 25 MG TAB PO SCH ×2 (08:46→23:28)
[2021-07-24] MEDS: MOM 30ML SUSPENSION UDC PO PRN (08:51)
[2021-07-24] MEDS: SENOKOT S TAB PO PRN (16:59)
[2021-07-24] MEDS: RAMELTEON 8 MG TAB (ROZEREM) PO PRN (23:27)
[2021-07-25] MEDS: PERCOCET 5MG/325MG TAB PO PRN ×4 (05:28→23:29)
[2021-07-25] MEDS: ALPRAZolam 0.5 MG TAB PO PRN ×4 (05:29→23:29)
[2021-07-25 06:00] VITALS: BP 123/73
[2021-07-25] MEDS: QUEtiapine FUMARATE 25 MG TAB PO SCH ×2 (08:43→23:29)
[2021-07-25] MEDS: RAMELTEON 8 MG TAB (ROZEREM) PO PRN (23:29)
[2021-07-26] MEDS: PERCOCET 5MG/325MG TAB PO PRN ×3 (05:31→18:21)
[2021-07-26] MEDS: ALPRAZolam 0.5 MG TAB PO PRN ×3 (05:31→18:21)
[2021-07-26 06:00] VITALS: BP 122/70
[2021-07-26] MEDS: QUEtiapine FUMARATE 25 MG TAB PO SCH ×2 (09:51→20:11)
[2021-07-27] MEDS: ALPRAZolam 0.5 MG TAB PO PRN ×4 (00:38→18:18)
[2021-07-27 06:05] VITALS: BP 153/94
[2021-07-27] MEDS: PERCOCET 5MG/325MG TAB PO PRN ×3 (06:13→18:18)
[2021-07-27] MEDS: QUEtiapine FUMARATE 25 MG TAB PO SCH ×2 (09:25→20:14)
[2021-07-27] MEDS: SENOKOT S TAB PO PRN (18:17)
[2021-07-27] MEDS: MOM 30ML SUSPENSION UDC PO PRN (18:17)
[2021-07-28] MEDS: RAMELTEON 8 MG TAB (ROZEREM) PO PRN (00:16)
[2021-07-28] MEDS: ALPRAZolam 0.5 MG TAB PO PRN ×2 (00:17→20:19)
[2021-07-28] MEDS: PERCOCET 5MG/325MG TAB PO PRN ×2 (00:18→20:21)
[2021-07-28 06:00] VITALS: BP 141/77
[2021-07-28] MEDS: QUEtiapine FUMARATE 25 MG TAB PO SCH ×2 (08:34→20:18)
[2021-07-28] MEDS ORDERED: OLANZapine INTRAMUSCULAR 10MG VIAL IM PRN (20:05)
[2021-07-28] MEDS ORDERED: diphenhydrAMINE 50MG/ML VIAL IM PRN (20:05)
[2021-07-29] MEDS: PERCOCET 5MG/325MG TAB PO PRN ×4 (02:30→20:48)
[2021-07-29] MEDS: ALPRAZolam 0.5 MG TAB PO PRN ×4 (02:32→20:49)
[2021-07-29] MEDS: QUEtiapine FUMARATE 25 MG TAB PO SCH ×2 (08:37→20:48)
[2021-07-29 10:57] VITALS: BP 140/78
[2021-07-29] MEDS: RAMELTEON 8 MG TAB (ROZEREM) PO PRN (20:49)
[2021-07-30] MEDS: ALPRAZolam 0.5 MG TAB PO PRN ×3 (03:33→20:06)
[2021-07-30] MEDS: PERCOCET 5MG/325MG TAB PO PRN ×3 (03:33→20:07)
[2021-07-30] MEDS: QUEtiapine FUMARATE 25 MG TAB PO SCH ×2 (09:58→20:06)
[2021-07-30] MEDS: RAMELTEON 8 MG TAB (ROZEREM) PO PRN (20:06)
[2021-07-31] MEDS: ALPRAZolam 0.5 MG TAB PO PRN ×3 (06:51→19:47)
[2021-07-31] MEDS: PERCOCET 5MG/325MG TAB PO PRN ×3 (06:52→19:46)
[2021-07-31] MEDS: QUEtiapine FUMARATE 25 MG TAB PO SCH ×2 (09:55→19:46)
[2021-07-31] MEDS: RAMELTEON 8 MG TAB (ROZEREM) PO PRN (19:47)
[2021-08-01] MEDS: ALPRAZolam 0.5 MG TAB PO PRN ×4 (01:56→20:32)
[2021-08-01] MEDS: PERCOCET 5MG/325MG TAB PO PRN ×4 (01:57→20:32)
[2021-08-01] MEDS: QUEtiapine FUMARATE 25 MG TAB PO SCH ×2 (08:03→20:32)
[2021-08-01] MEDS: RAMELTEON 8 MG TAB (ROZEREM) PO PRN (20:31)
[2021-08-02] MEDS: ALPRAZolam 0.5 MG TAB PO PRN ×4 (02:56→22:31)
[2021-08-02] MEDS: PERCOCET 5MG/325MG TAB PO PRN ×4 (02:57→22:30)
[2021-08-02] MEDS: QUEtiapine FUMARATE 25 MG TAB PO SCH ×2 (09:02→21:32)
[2021-08-02] MEDS: SENOKOT S TAB PO PRN (16:34)
[2021-08-02] MEDS: RAMELTEON 8 MG TAB (ROZEREM) PO PRN (21:32)
[2021-08-03 06:00] VITALS: BP 164/99
[2021-08-03] MEDS: ALPRAZolam 0.5 MG TAB PO PRN ×3 (06:13→18:32)
[2021-08-03] MEDS: PERCOCET 5MG/325MG TAB PO PRN ×3 (06:14→18:31)
[2021-08-03] MEDS: QUEtiapine FUMARATE 25 MG TAB PO SCH ×2 (08:54→21:21)
[2021-08-03] MEDS: RAMELTEON 8 MG TAB (ROZEREM) PO PRN (21:21)
[2021-08-04] MEDS: ALPRAZolam 0.5 MG TAB PO PRN ×4 (00:56→18:52)
[2021-08-04] MEDS: PERCOCET 5MG/325MG TAB PO PRN ×4 (00:56→18:53)
[2021-08-04 06:00] VITALS: BP 130/84
[2021-08-04] MEDS: QUEtiapine FUMARATE 25 MG TAB PO SCH ×2 (09:33→20:23)
[2021-08-04 09:35] VITALS: BP 133/86
[2021-08-04] MEDS: SENOKOT S TAB PO PRN (18:52)
[2021-08-05] MEDS: RAMELTEON 8 MG TAB (ROZEREM) PO PRN ×2 (00:57→20:36)
[2021-08-05] MEDS: PERCOCET 5MG/325MG TAB PO PRN ×4 (00:58→20:36)
[2021-08-05] MEDS: ALPRAZolam 0.5 MG TAB PO PRN ×4 (00:58→20:36)
[2021-08-05 06:00] VITALS: BP 140/82
[2021-08-05] MEDS: QUEtiapine FUMARATE 25 MG TAB PO SCH ×2 (08:42→20:35)
[2021-08-06] MEDS: PERCOCET 5MG/325MG TAB PO PRN ×4 (02:33→20:58)
[2021-08-06] MEDS: ALPRAZolam 0.5 MG TAB PO PRN ×4 (02:33→20:59)
[2021-08-06] MEDS: QUEtiapine FUMARATE 25 MG TAB PO SCH ×2 (08:41→20:58)
[2021-08-06] MEDS: MOM 30ML SUSPENSION UDC PO PRN (12:14)
[2021-08-06] MEDS: RAMELTEON 8 MG TAB (ROZEREM) PO PRN (20:59)
[2021-08-07] MEDS: PERCOCET 5MG/325MG TAB PO PRN ×4 (03:07→21:48)
[2021-08-07] MEDS: ALPRAZolam 0.5 MG TAB PO PRN ×4 (03:08→21:48)
[2021-08-07] MEDS: QUEtiapine FUMARATE 25 MG TAB PO SCH ×2 (09:31→21:48)
[2021-08-07] MEDS: RAMELTEON 8 MG TAB (ROZEREM) PO PRN (21:48)
[2021-08-08] MEDS: ALPRAZolam 0.5 MG TAB PO PRN ×4 (03:52→22:12)
[2021-08-08] MEDS: PERCOCET 5MG/325MG TAB PO PRN ×4 (03:52→22:13)
[2021-08-08] MEDS: QUEtiapine FUMARATE 25 MG TAB PO SCH ×2 (10:00→22:13)
[2021-08-08] MEDS: RAMELTEON 8 MG TAB (ROZEREM) PO PRN (22:12)
[2021-08-09] MEDS: ALPRAZolam 0.5 MG TAB PO PRN ×4 (04:19→22:57)
[2021-08-09] MEDS: PERCOCET 5MG/325MG TAB PO PRN ×4 (04:19→22:56)
[2021-08-09] MEDS: QUEtiapine FUMARATE 25 MG TAB PO SCH ×2 (10:33→22:56)
[2021-08-10 08:44] VITALS: BP 142/77
[2021-08-10] MEDS: QUEtiapine FUMARATE 25 MG TAB PO SCH ×2 (08:59→20:41)
[2021-08-10] MEDS: ALPRAZolam 0.5 MG TAB PO PRN ×2 (09:01→16:08)
[2021-08-10] MEDS: PERCOCET 5MG/325MG TAB PO PRN ×2 (09:02→16:07)
[2021-08-10] MEDS: RAMELTEON 8 MG TAB (ROZEREM) PO PRN (20:41)
[2021-08-11] MEDS: ACETAMINOPHEN TAB 650MG DOSE (2X325MG) PO PRN (08:43)
[2021-08-11] MEDS: QUEtiapine FUMARATE 25 MG TAB PO SCH (08:43)
[2021-08-11] MEDS: PERCOCET 5MG/325MG TAB PO PRN ×2 (11:52→18:09)
[2021-08-11] MEDS: ALPRAZolam 0.5 MG TAB PO PRN ×2 (11:53→18:10)
[2021-08-12] MEDS: RAMELTEON 8 MG TAB (ROZEREM) PO PRN (00:35)
[2021-08-12] MEDS: QUEtiapine FUMARATE 25 MG TAB PO SCH ×3 (00:35→21:12)
[2021-08-12] MEDS: ALPRAZolam 0.5 MG TAB PO PRN ×4 (00:35→18:43)
[2021-08-12] MEDS: PERCOCET 5MG/325MG TAB PO PRN ×4 (00:36→18:43)
[2021-08-12] MEDS: ACETAMINOPHEN TAB 650MG DOSE (2X325MG) PO PRN (08:56)
[2021-08-12 16:30] VITALS: BP 138/82
[2021-08-13] MEDS: RAMELTEON 8 MG TAB (ROZEREM) PO PRN (00:46)
[2021-08-13] MEDS: PERCOCET 5MG/325MG TAB PO PRN ×4 (00:46→19:20)
[2021-08-13] MEDS: ALPRAZolam 0.5 MG TAB PO PRN ×4 (00:47→19:19)
[2021-08-13] MEDS: QUEtiapine FUMARATE 25 MG TAB PO SCH ×2 (08:59→21:00)
[2021-08-14] MEDS: QUEtiapine FUMARATE 25 MG TAB PO SCH ×3 (00:31→19:27)
[2021-08-14] MEDS: RAMELTEON 8 MG TAB (ROZEREM) PO PRN (00:31)
[2021-08-14 06:00] VITALS: BP 139/66
[2021-08-14] MEDS: PERCOCET 5MG/325MG TAB PO PRN ×3 (06:32→19:28)
[2021-08-14] MEDS: ALPRAZolam 0.5 MG TAB PO PRN ×3 (06:32→19:27)
[2021-08-14] MEDS: ACETAMINOPHEN TAB 650MG DOSE (2X325MG) PO PRN ×2 (18:20→22:25)
[2021-08-15] MEDS: PERCOCET 5MG/325MG TAB PO PRN ×4 (02:37→20:41)
[2021-08-15] MEDS: ALPRAZolam 0.5 MG TAB PO PRN ×4 (02:37→20:40)
[2021-08-15] MEDS: RAMELTEON 8 MG TAB (ROZEREM) PO PRN ×2 (02:37→20:40)
[2021-08-15 06:00] VITALS: BP 135/64
[2021-08-15] MEDS: QUEtiapine FUMARATE 25 MG TAB PO SCH ×2 (08:34→20:40)
[2021-08-15 21:48] VITALS: BP 135/64
[2021-08-16] MEDS: ALPRAZolam 0.5 MG TAB PO PRN ×3 (02:36→16:55)
[2021-08-16] MEDS: PERCOCET 5MG/325MG TAB PO PRN ×3 (02:37→16:56)
[2021-08-16 06:13] VITALS: BP 135/63
[2021-08-16] MEDS: QUEtiapine FUMARATE 25 MG TAB PO SCH ×2 (09:50→21:34)
[2021-08-17 02:00] VITALS: BP 141/72
[2021-08-17] MEDS: QUEtiapine FUMARATE 25 MG TAB PO SCH ×2 (07:58→20:27)
[2021-08-17] MEDS: ALPRAZolam 0.5 MG TAB PO PRN ×3 (07:58→20:28)
[2021-08-17] MEDS: PERCOCET 5MG/325MG TAB PO PRN ×3 (07:59→20:28)
[2021-08-17] MEDS: RAMELTEON 8 MG TAB (ROZEREM) PO PRN (20:27)
[2021-08-18] MEDS: PERCOCET 5MG/325MG TAB PO PRN ×3 (02:29→15:02)
[2021-08-18] MEDS: ALPRAZolam 0.5 MG TAB PO PRN ×2 (02:30→08:43)
[2021-08-18 06:00] VITALS: BP 118/61
[2021-08-18] MEDS: QUEtiapine FUMARATE 25 MG TAB PO SCH ×2 (08:43→21:00)
[2021-08-18] MEDS: MIRALAX *UNIT DOSE* 17GM PACKET PO PRN (15:02)
[2021-08-19] MEDS: QUEtiapine FUMARATE 25 MG TAB PO SCH ×2 (09:00→21:28)
[2021-08-19] MEDS: RAMELTEON 8 MG TAB (ROZEREM) PO PRN (21:28)
[2021-08-20] MEDS: QUEtiapine FUMARATE 25 MG TAB PO SCH (08:57)
[2021-08-21] VITALS: BP 115/78
[2021-08-21] MEDS: QUEtiapine FUMARATE 25 MG TAB PO SCH ×3 (00:40→21:00)
[2021-08-21] MEDS: RAMELTEON 8 MG TAB (ROZEREM) PO PRN (00:40)
[2021-08-21] MEDS: ACETAMINOPHEN TAB 650MG DOSE (2X325MG) PO PRN (09:28)
[2021-08-21] MEDS: ALPRAZolam 0.5 MG TAB PO PRN (19:22)
[2021-08-21] MEDS: PERCOCET 5MG/325MG TAB PO PRN (19:22)
[2021-08-22] MEDS: ALPRAZolam 0.5 MG TAB PO PRN ×5 (02:05→22:56)
[2021-08-22] MEDS: RAMELTEON 8 MG TAB (ROZEREM) PO PRN ×2 (02:05→22:56)
[2021-08-22] MEDS: PERCOCET 5MG/325MG TAB PO PRN ×5 (02:06→22:56)
[2021-08-22 06:00] VITALS: BP 123/81
[2021-08-22] MEDS: QUEtiapine FUMARATE 25 MG TAB PO SCH ×2 (08:08→22:55)
[2021-08-22] MEDS ORDERED: PERCOCET 5MG/325MG TAB PO PRN (12:25)
[2021-08-22 14:00] VITALS: BP 130/81
[2021-08-23] MEDS: ALPRAZolam 0.5 MG TAB PO PRN ×5 (03:27→22:11)
[2021-08-23] MEDS: PERCOCET 5MG/325MG TAB PO PRN ×5 (03:28→22:11)
[2021-08-23 06:00] VITALS: BP 134/83
[2021-08-23] MEDS: QUEtiapine FUMARATE 25 MG TAB PO SCH ×2 (08:02→22:11)
[2021-08-23 14:00] VITALS: BP 113/66
[2021-08-23 22:00] VITALS: BP 147/83
[2021-08-23] MEDS: RAMELTEON 8 MG TAB (ROZEREM) PO PRN (22:10)
[2021-08-24] MEDS: PERCOCET 5MG/325MG TAB PO PRN ×4 (05:01→20:02)
[2021-08-24] MEDS: ALPRAZolam 0.5 MG TAB PO PRN ×3 (05:01→20:01)
[2021-08-24 06:00] VITALS: BP 134/81
[2021-08-24] MEDS: QUEtiapine FUMARATE 25 MG TAB PO SCH ×2 (09:58→20:01)
[2021-08-24 14:00] VITALS: BP 129/74
[2021-08-24] MEDS: RAMELTEON 8 MG TAB (ROZEREM) PO PRN (22:40)
[2021-08-25] MEDS: ALPRAZolam 0.5 MG TAB PO PRN ×3 (01:03→11:06)
[2021-08-25] MEDS: PERCOCET 5MG/325MG TAB PO PRN ×5 (01:04→21:07)
[2021-08-25] MEDS: QUEtiapine FUMARATE 25 MG TAB PO SCH ×2 (09:08→21:06)
[2021-08-25] MEDS: RAMELTEON 8 MG TAB (ROZEREM) PO PRN (21:06)
[2021-08-26] MEDS: PERCOCET 5MG/325MG TAB PO PRN ×5 (01:37→23:04)
[2021-08-26] MEDS: QUEtiapine FUMARATE 25 MG TAB PO SCH ×2 (08:47→23:17)
[2021-08-26] MEDS: RAMELTEON 8 MG TAB (ROZEREM) PO PRN (23:04)
[2021-08-27] MEDS: PERCOCET 5MG/325MG TAB PO PRN ×5 (03:54→23:43)
[2021-08-27 06:15] VITALS: BP 126/78
[2021-08-27] MEDS: QUEtiapine FUMARATE 25 MG TAB PO SCH ×2 (08:54→23:43)
[2021-08-27] MEDS: RAMELTEON 8 MG TAB (ROZEREM) PO PRN (23:43)
[2021-08-28] MEDS: PERCOCET 5MG/325MG TAB PO PRN ×2 (04:48→17:49)
[2021-08-28] MEDS: ALPRAZolam 0.25 MG TAB PO PRN ×3 (04:50→17:50)
[2021-08-28 05:45] VITALS: BP 134/92
[2021-08-28] MEDS: QUEtiapine FUMARATE 25 MG TAB PO SCH ×2 (08:51→21:25)
[2021-08-29] MEDS: ALPRAZolam 0.25 MG TAB PO PRN ×5 (01:28→21:05)
[2021-08-29] MEDS: RAMELTEON 8 MG TAB (ROZEREM) PO PRN ×2 (01:28→21:04)
[2021-08-29] MEDS: PERCOCET 5MG/325MG TAB PO PRN ×5 (01:29→21:06)
[2021-08-29 05:40] VITALS: BP 135/91
[2021-08-29] MEDS: QUEtiapine FUMARATE 25 MG TAB PO SCH ×2 (09:53→21:04)
[2021-08-30] MEDS: ALPRAZolam 0.25 MG TAB PO PRN ×5 (03:02→21:40)
[2021-08-30] MEDS: PERCOCET 5MG/325MG TAB PO PRN ×5 (03:03→21:41)
[2021-08-30 05:41] VITALS: BP 149/91
[2021-08-30] MEDS: QUEtiapine FUMARATE 25 MG TAB PO SCH ×2 (08:05→21:40)
[2021-08-30] MEDS: ACETAMINOPHEN TAB 650MG DOSE (2X325MG) PO PRN ×2 (13:57→19:46)
[2021-08-30] MEDS: RAMELTEON 8 MG TAB (ROZEREM) PO PRN (21:39)
[2021-08-31] MEDS: PERCOCET 5MG/325MG TAB PO PRN ×5 (02:06→21:01)
[2021-08-31] MEDS: ALPRAZolam 0.25 MG TAB PO PRN ×4 (02:07→21:00)
[2021-08-31 05:56] VITALS: BP 135/87
[2021-08-31] MEDS: QUEtiapine FUMARATE 25 MG TAB PO SCH ×2 (08:31→21:00)
[2021-08-31] MEDS: RAMELTEON 8 MG TAB (ROZEREM) PO PRN (21:00)
[2021-09-01] MEDS: ALPRAZolam 0.25 MG TAB PO PRN ×6 (01:02→22:38)
[2021-09-01] MEDS: PERCOCET 5MG/325MG TAB PO PRN ×6 (01:02→22:38)
[2021-09-01 06:00] VITALS: BP 141/83
[2021-09-01] MEDS: QUEtiapine FUMARATE 25 MG TAB PO SCH ×2 (09:09→22:37)
[2021-09-01] MEDS: RAMELTEON 8 MG TAB (ROZEREM) PO PRN (22:38)
[2021-09-02] MEDS: ALPRAZolam 0.25 MG TAB PO PRN ×4 (02:54→19:46)
[2021-09-02] MEDS: PERCOCET 5MG/325MG TAB PO PRN ×4 (02:55→19:46)
[2021-09-02 06:15] VITALS: BP 153/75
[2021-09-02 08:00] VITALS: BP 173/89
[2021-09-02] MEDS: QUEtiapine FUMARATE 50MG TAB PO SCH ×2 (08:19→21:19)
[2021-09-02] MEDS: RAMELTEON 8 MG TAB (ROZEREM) PO PRN (21:19)
[2021-09-03] MEDS: PERCOCET 5MG/325MG TAB PO PRN ×6 (01:03→22:27)
[2021-09-03] MEDS: ALPRAZolam 0.25 MG TAB PO PRN ×6 (01:06→22:27)
[2021-09-03 06:00] VITALS: BP 141/81
[2021-09-03] MEDS: QUEtiapine FUMARATE 50MG TAB PO SCH ×2 (08:26→22:26)
[2021-09-03] MEDS: CEFDINIR 300 MG CAP (OMNICEF) PO SCH (22:26)
[2021-09-04] MEDS: ALPRAZolam 0.25 MG TAB PO PRN ×5 (03:46→20:47)
[2021-09-04] MEDS: PERCOCET 5MG/325MG TAB PO PRN ×5 (03:47→20:48)
[2021-09-04 06:00] VITALS: BP 123/77
[2021-09-04] MEDS: CEFDINIR 300 MG CAP (OMNICEF) PO SCH ×2 (09:19→20:47)
[2021-09-04] MEDS: QUEtiapine FUMARATE 50MG TAB PO SCH (09:19)
[2021-09-04] MEDS: QUEtiapine FUMARATE 25 MG TAB PO SCH (20:47)
[2021-09-04] MEDS: RAMELTEON 8 MG TAB (ROZEREM) PO PRN (20:49)
[2021-09-05] MEDS: ALPRAZolam 0.25 MG TAB PO PRN ×5 (03:57→20:07)
[2021-09-05] MEDS: PERCOCET 5MG/325MG TAB PO PRN ×5 (04:01→20:08)
[2021-09-05 06:00] VITALS: BP 126/74
[2021-09-05] MEDS: CEFDINIR 300 MG CAP (OMNICEF) PO SCH ×2 (08:08→20:07)
[2021-09-05] MEDS: QUEtiapine FUMARATE 25 MG TAB PO SCH ×2 (08:08→20:06)
[2021-09-05] MEDS: RAMELTEON 8 MG TAB (ROZEREM) PO PRN (20:07)
[2021-09-06] MEDS: ALPRAZolam 0.25 MG TAB PO PRN ×5 (00:22→16:58)
[2021-09-06] MEDS: PERCOCET 5MG/325MG TAB PO PRN ×5 (00:22→16:59)
[2021-09-06] MEDS: DOXYCYCLINE HYCLATE 100MG TABLET PO SCH ×2 (08:19→21:00)
[2021-09-06] MEDS: QUEtiapine FUMARATE 25 MG TAB PO SCH ×2 (08:22→21:00)
[2021-09-06 10:41] VITALS: BP 130/74
[2021-09-07] MEDS: ALPRAZolam 0.25 MG TAB PO PRN ×6 (01:55→23:40)
[2021-09-07] MEDS: PERCOCET 5MG/325MG TAB PO PRN ×7 (01:55→23:40)
[2021-09-07] MEDS: DOXYCYCLINE HYCLATE 100MG TABLET PO SCH ×3 (01:55→20:59)
[2021-09-07] MEDS: RAMELTEON 8 MG TAB (ROZEREM) PO PRN ×2 (01:56→21:00)
[2021-09-07] MEDS: QUEtiapine FUMARATE 25 MG TAB PO SCH ×3 (01:56→21:00)
[2021-09-07] MEDS: ACETAMINOPHEN TAB 650MG DOSE (2X325MG) PO PRN (21:01)
[2021-09-08] MEDS: PERCOCET 5MG/325MG TAB PO PRN ×5 (03:33→19:57)
[2021-09-08] MEDS: ALPRAZolam 0.25 MG TAB PO PRN ×5 (03:34→19:56)
[2021-09-08] MEDS: DOXYCYCLINE HYCLATE 100MG TABLET PO SCH ×2 (07:37→19:56)
[2021-09-08] MEDS: QUEtiapine FUMARATE 25 MG TAB PO SCH ×2 (07:37→19:56)
[2021-09-08] MEDS: RAMELTEON 8 MG TAB (ROZEREM) PO PRN (19:56)
[2021-09-09] MEDS: ALPRAZolam 0.25 MG TAB PO PRN ×6 (00:13→21:14)
[2021-09-09] MEDS: PERCOCET 5MG/325MG TAB PO PRN ×6 (00:13→21:15)
[2021-09-09] MEDS: QUEtiapine FUMARATE 25 MG TAB PO SCH ×2 (08:46→21:14)
[2021-09-09] MEDS: DOXYCYCLINE HYCLATE 100MG TABLET PO SCH ×2 (08:46→21:14)
[2021-09-09] MEDS: RAMELTEON 8 MG TAB (ROZEREM) PO PRN (21:13)
[2021-09-10] MEDS: ALPRAZolam 0.25 MG TAB PO PRN ×6 (01:05→21:03)
[2021-09-10] MEDS: PERCOCET 5MG/325MG TAB PO PRN ×6 (01:05→21:04)
[2021-09-10 06:00] VITALS: BP 136/78
[2021-09-10] MEDS: QUEtiapine FUMARATE 25 MG TAB PO SCH ×2 (09:02→21:56)
[2021-09-10] MEDS: CEFDINIR 300 MG CAP (OMNICEF) PO SCH ×2 (09:02→21:04)
[2021-09-10] MEDS: RAMELTEON 8 MG TAB (ROZEREM) PO PRN (21:04)
[2021-09-11] MEDS: ALPRAZolam 0.25 MG TAB PO PRN ×4 (01:24→16:01)
[2021-09-11] MEDS: PERCOCET 5MG/325MG TAB PO PRN ×5 (01:25→20:06)
[2021-09-11] MEDS: CEFDINIR 300 MG CAP (OMNICEF) PO SCH ×2 (09:56→20:06)
[2021-09-11] MEDS: QUEtiapine FUMARATE 25 MG TAB PO SCH ×2 (09:56→20:06)
[2021-09-11] MEDS: RAMELTEON 8 MG TAB (ROZEREM) PO PRN (20:06)
[2021-09-12] MEDS: ALPRAZolam 0.25 MG TAB PO PRN ×2 (00:12→08:22)
[2021-09-12] MEDS: PERCOCET 5MG/325MG TAB PO PRN ×3 (00:12→08:57)
[2021-09-12] MEDS: QUEtiapine FUMARATE 25 MG TAB PO SCH ×2 (08:22→20:29)
[2021-09-12] MEDS: CEFDINIR 300 MG CAP (OMNICEF) PO SCH ×2 (08:22→20:29)
[2021-09-12] MEDS: RAMELTEON 8 MG TAB (ROZEREM) PO PRN (20:29)
[2021-09-13] MEDS: ACETAMINOPHEN TAB 650MG DOSE (2X325MG) PO PRN ×2 (01:47→18:00)
[2021-09-13] MEDS: QUEtiapine FUMARATE 25 MG TAB PO SCH ×2 (11:21→21:27)
[2021-09-13] MEDS: ALPRAZolam 0.25 MG TAB PO PRN ×2 (13:34→21:26)
[2021-09-13] MEDS: PERCOCET 5MG/325MG TAB PO PRN ×2 (13:34→21:26)
[2021-09-13] MEDS: RAMELTEON 8 MG TAB (ROZEREM) PO PRN (21:26)
[2021-09-14] MEDS: ALPRAZolam 0.25 MG TAB PO PRN ×3 (06:31→22:40)
[2021-09-14] MEDS: PERCOCET 5MG/325MG TAB PO PRN ×3 (06:31→22:40)
[2021-09-14] MEDS: ACETAMINOPHEN TAB 650MG DOSE (2X325MG) PO PRN ×2 (10:00→18:38)
[2021-09-14] MEDS: QUEtiapine FUMARATE 25 MG TAB PO SCH ×2 (10:00→20:45)
[2021-09-14] MEDS: RAMELTEON 8 MG TAB (ROZEREM) PO PRN (20:45)
[2021-09-15] MEDS: ACETAMINOPHEN TAB 650MG DOSE (2X325MG) PO PRN ×3 (02:23→18:44)
[2021-09-15 06:00] VITALS: BP 185/94
[2021-09-15] MEDS: PERCOCET 5MG/325MG TAB PO PRN ×3 (06:39→23:08)
[2021-09-15] MEDS: ALPRAZolam 0.25 MG TAB PO PRN ×3 (06:39→23:07)
[2021-09-15] MEDS: QUEtiapine FUMARATE 25 MG TAB PO SCH ×2 (08:18→21:54)
[2021-09-15] MEDS: amLODIPine 5 MG TAB PO SCH (08:21)
[2021-09-15 10:33] VITALS: BP 143/71
[2021-09-15] MEDS: RAMELTEON 8 MG TAB (ROZEREM) PO PRN (21:54)
[2021-09-16] MEDS: ACETAMINOPHEN TAB 650MG DOSE (2X325MG) PO PRN ×3 (01:59→17:58)
[2021-09-16 06:00] VITALS: BP 137/73
[2021-09-16] MEDS: ALPRAZolam 0.25 MG TAB PO PRN ×2 (07:42→15:05)
[2021-09-16] MEDS: QUEtiapine FUMARATE 25 MG TAB PO SCH ×2 (07:42→21:00)
[2021-09-16] MEDS: PERCOCET 5MG/325MG TAB PO PRN ×2 (07:42→15:05)
[2021-09-16] MEDS: amLODIPine 5 MG TAB PO SCH (07:44)
[2021-09-17] MEDS: ALPRAZolam 0.25 MG TAB PO PRN ×4 (02:41→21:10)
[2021-09-17] MEDS: PERCOCET 5MG/325MG TAB PO PRN ×4 (02:41→21:11)
[2021-09-17] MEDS: ACETAMINOPHEN TAB 650MG DOSE (2X325MG) PO PRN ×3 (04:58→15:07)
[2021-09-17 05:27] VITALS: BP 178/96
[2021-09-17] MEDS: QUEtiapine FUMARATE 25 MG TAB PO SCH ×2 (08:55→20:04)
[2021-09-17] MEDS: amLODIPine 5 MG TAB PO SCH (08:55)
[2021-09-17] MEDS: RAMELTEON 8 MG TAB (ROZEREM) PO PRN (20:03)
[2021-09-18] MEDS: ACETAMINOPHEN TAB 650MG DOSE (2X325MG) PO PRN (01:18)
[2021-09-18] MEDS: ALPRAZolam 0.25 MG TAB PO PRN ×3 (03:11→22:23)
[2021-09-18] MEDS: PERCOCET 5MG/325MG TAB PO PRN ×3 (03:12→22:24)
[2021-09-18 03:16] VITALS: BP 146/79
[2021-09-18] MEDS: QUEtiapine FUMARATE 25 MG TAB PO SCH ×2 (09:00→20:30)
[2021-09-18] MEDS: amLODIPine 5 MG TAB PO SCH (09:18)
[2021-09-18] MEDS: RAMELTEON 8 MG TAB (ROZEREM) PO PRN (20:30)
[2021-09-19 01:29] VITALS: BP 161/93
[2021-09-19] MEDS: PERCOCET 5MG/325MG TAB PO PRN ×6 (02:26→23:59)
[2021-09-19] MEDS: ALPRAZolam 0.25 MG TAB PO PRN ×6 (02:26→23:58)
[2021-09-19] MEDS: QUEtiapine FUMARATE 25 MG TAB PO SCH ×2 (08:39→21:58)
[2021-09-19] MEDS: amLODIPine 5 MG TAB PO SCH (08:41)
[2021-09-19] MEDS ORDERED: amLODIPine 5 MG TAB PO ONE (09:20)
[2021-09-19 10:30] LABS: HEMATOCRIT 47.3 % (42.0-52.0); HEMOGLOBIN 15.7 g/dl (13.5-17.5); MEAN CORPUSCULAR HEMOGLOBIN 29.9 pg (27.0-33.0); MEAN CORPUSCULAR HGB CONC 33.2 g/dl (32.0-36.5); MEAN CORPUSCULAR VOLUME 90.1 fl (80.0-96.0); PLATELET COUNT, AUTOMATED 268 10^3/uL (150-450); RED BLOOD COUNT 5.25 10^6/uL (4.30-6.10); WHITE BLOOD COUNT 10.7 10^3/uL (4.0-10.0)
[2021-09-19 10:41] LABS: INR 1.05; PARTIAL THROMBOPLASTIN TIME 29.7 SECONDS (25.9-37.0); PROTHROMBIN TIME 14.1 SECONDS (12.7-14.5)
[2021-09-19 11:00] LABS: ALBUMIN 3.1 GM/DL (3.2-5.2); ALKALINE PHOSPHATASE 89 U/L (45-117); ALT/SGPT 78 U/L (12-78); AST/SGOT 48 U/L (7-37); BILIRUBIN,TOTAL 0.4 MG/DL (0.2-1.0); BLOOD UREA NITROGEN 24 MG/DL (7-18); CALCIUM LEVEL 9.1 MG/DL (8.8-10.2); CARBON DIOXIDE LEVEL 28 MEQ/L (21-32); CHLORIDE LEVEL 108 MEQ/L (98-107); GLOMERULAR FILTRATION RATE > 60.0 (>35); GLUCOSE, FASTING 131 MG/DL (70-100); POTASSIUM SERUM 4.5 MEQ/L (3.5-5.1); SODIUM LEVEL 143 MEQ/L (136-145); TOTAL PROTEIN 6.9 GM/DL (6.4-8.2)
[2021-09-19] MEDS: ACETAMINOPHEN TAB 650MG DOSE (2X325MG) PO PRN ×3 (13:43→22:21)
[2021-09-19] MEDS: RAMELTEON 8 MG TAB (ROZEREM) PO PRN (21:58)
[2021-09-20] MEDS: ACETAMINOPHEN TAB 650MG DOSE (2X325MG) PO PRN ×2 (03:34→21:46)
[2021-09-20] MEDS: PERCOCET 5MG/325MG TAB PO PRN ×5 (04:02→20:50)
[2021-09-20] MEDS: ALPRAZolam 0.25 MG TAB PO PRN ×5 (04:02→20:48)
[2021-09-20] MEDS: QUEtiapine FUMARATE 25 MG TAB PO SCH ×2 (08:01→20:47)
[2021-09-20] MEDS: RAMELTEON 8 MG TAB (ROZEREM) PO PRN (20:47)
[2021-09-21] MEDS: ALPRAZolam 0.25 MG TAB PO PRN ×4 (00:53→20:19)
[2021-09-21] MEDS: PERCOCET 5MG/325MG TAB PO PRN ×4 (00:54→20:19)
[2021-09-21] MEDS: QUEtiapine FUMARATE 25 MG TAB PO SCH ×2 (09:00→22:33)
[2021-09-21] MEDS: ACETAMINOPHEN TAB 650MG DOSE (2X325MG) PO PRN ×2 (12:54→22:34)
[2021-09-21] MEDS: RAMELTEON 8 MG TAB (ROZEREM) PO PRN (20:18)
[2021-09-22] MEDS: PERCOCET 5MG/325MG TAB PO PRN ×5 (00:20→20:07)
[2021-09-22] MEDS: ALPRAZolam 0.25 MG TAB PO PRN ×5 (00:20→20:06)
[2021-09-22] MEDS: QUEtiapine FUMARATE 25 MG TAB PO SCH ×2 (08:11→20:05)
[2021-09-22] MEDS: ACETAMINOPHEN TAB 650MG DOSE (2X325MG) PO PRN (08:11)
[2021-09-22] MEDS: RAMELTEON 8 MG TAB (ROZEREM) PO PRN (20:05)
[2021-09-23] MEDS: PERCOCET 5MG/325MG TAB PO PRN ×5 (01:18→20:25)
[2021-09-23] MEDS: ALPRAZolam 0.25 MG TAB PO PRN ×5 (01:19→20:23)
[2021-09-23] MEDS: ACETAMINOPHEN TAB 650MG DOSE (2X325MG) PO PRN (04:15)
[2021-09-23 05:34] VITALS: BP 142/74
[2021-09-23] MEDS: QUEtiapine FUMARATE 25 MG TAB PO SCH ×2 (09:07→20:26)
[2021-09-23] MEDS: RAMELTEON 8 MG TAB (ROZEREM) PO PRN (20:24)
[2021-09-24] MEDS: ALPRAZolam 0.25 MG TAB PO PRN ×5 (01:33→20:00)
[2021-09-24] MEDS: PERCOCET 5MG/325MG TAB PO PRN ×5 (01:34→20:01)
[2021-09-24 04:00] VITALS: BP 147/73
[2021-09-24] MEDS: ACETAMINOPHEN TAB 650MG DOSE (2X325MG) PO PRN ×3 (04:12→23:24)
[2021-09-24] MEDS: QUEtiapine FUMARATE 25 MG TAB PO SCH ×2 (10:41→20:01)
[2021-09-25] MEDS: RAMELTEON 8 MG TAB (ROZEREM) PO PRN
[2021-09-25] MEDS: PERCOCET 5MG/325MG TAB PO PRN ×6 (00:01→21:06)
[2021-09-25] MEDS: ALPRAZolam 0.25 MG TAB PO PRN ×6 (04:02→21:07)
[2021-09-25 06:00] VITALS: BP 140/72
[2021-09-25] MEDS: QUEtiapine FUMARATE 25 MG TAB PO SCH ×2 (08:27→21:07)
[2021-09-26] MEDS: RAMELTEON 8 MG TAB (ROZEREM) PO PRN ×2 (01:26→22:59)
[2021-09-26] MEDS: ALPRAZolam 0.25 MG TAB PO PRN ×6 (01:26→22:56)
[2021-09-26] MEDS: PERCOCET 5MG/325MG TAB PO PRN ×6 (01:27→22:57)
[2021-09-26 06:00] VITALS: BP 142/87
[2021-09-26] MEDS: ACETAMINOPHEN TAB 650MG DOSE (2X325MG) PO PRN ×2 (08:05→16:19)
[2021-09-26] MEDS: QUEtiapine FUMARATE 25 MG TAB PO SCH ×2 (09:37→20:38)
[2021-09-27] MEDS: ALPRAZolam 0.25 MG TAB PO PRN ×5 (03:30→21:59)
[2021-09-27] MEDS: PERCOCET 5MG/325MG TAB PO PRN ×5 (03:31→21:58)
[2021-09-27 05:47] VITALS: BP 143/65
[2021-09-27] MEDS: QUEtiapine FUMARATE 25 MG TAB PO SCH ×2 (08:43→21:59)
[2021-09-28] MEDS: RAMELTEON 8 MG TAB (ROZEREM) PO PRN ×2 (01:31→23:11)
[2021-09-28] MEDS: ALPRAZolam 0.25 MG TAB PO PRN ×6 (03:09→23:11)
[2021-09-28] MEDS: PERCOCET 5MG/325MG TAB PO PRN ×6 (03:10→23:12)
[2021-09-28] MEDS: ACETAMINOPHEN TAB 650MG DOSE (2X325MG) PO PRN (05:53)
[2021-09-28 06:00] VITALS: BP 160/96
[2021-09-28] MEDS: QUEtiapine FUMARATE 25 MG TAB PO SCH ×2 (09:35→23:10)
[2021-09-29] MEDS: PERCOCET 5MG/325MG TAB PO PRN ×5 (03:45→20:52)
[2021-09-29] MEDS: ALPRAZolam 0.25 MG TAB PO PRN ×5 (03:45→20:52)
[2021-09-29 06:00] VITALS: BP_SYST 145; BP_SYST 146; BP_DIAS 75; BP_DIAS 88
[2021-09-29] MEDS: QUEtiapine FUMARATE 25 MG TAB PO SCH ×2 (08:01→20:51)
[2021-09-29] MEDS: RAMELTEON 8 MG TAB (ROZEREM) PO PRN (20:51)
[2021-09-30] MEDS: ALPRAZolam 0.25 MG TAB PO PRN ×6 (00:56→21:36)
[2021-09-30] MEDS: PERCOCET 5MG/325MG TAB PO PRN ×6 (00:57→21:36)
[2021-09-30 06:00] VITALS: BP 145/76
[2021-09-30] MEDS: QUEtiapine FUMARATE 25 MG TAB PO SCH ×2 (09:32→21:35)
[2021-09-30] MEDS: RAMELTEON 8 MG TAB (ROZEREM) PO PRN (21:35)
[2021-10-01] MEDS: ALPRAZolam 0.25 MG TAB PO PRN ×5 (01:50→19:28)
[2021-10-01] MEDS: PERCOCET 5MG/325MG TAB PO PRN ×5 (01:50→19:28)
[2021-10-01 06:00] VITALS: BP 142/73
[2021-10-01] MEDS: QUEtiapine FUMARATE 25 MG TAB PO SCH (09:57)
[2021-10-01] MEDS: ACETAMINOPHEN TAB 650MG DOSE (2X325MG) PO PRN (17:12)
[2021-10-01] MEDS ORDERED: PERCOCET 5MG/325MG TAB PO ONE (19:35)
[2021-10-01] MEDS: DICLOFENAC EPOLAMINE 1.3% PATCH TOP SCH (20:00)
[2021-10-02] MEDS: QUEtiapine FUMARATE 25 MG TAB PO SCH ×4 (00:07→21:00)
[2021-10-02] MEDS: PERCOCET 5MG/325MG TAB PO PRN ×6 (00:08→17:20)
[2021-10-02] MEDS: RAMELTEON 8 MG TAB (ROZEREM) PO PRN (00:08)
[2021-10-02] MEDS: ALPRAZolam 0.25 MG TAB PO PRN ×6 (00:08→17:20)
[2021-10-02] MEDS: KETOROLAC TROMETHAMINE 10 MG TAB PO PRN ×2 (06:01→13:13)
[2021-10-02] MEDS: DICLOFENAC EPOLAMINE 1.3% PATCH TOP SCH ×3 (08:37→21:00)
[2021-10-03] MEDS: ALPRAZolam 0.25 MG TAB PO PRN ×5 (02:32→20:04)
[2021-10-03] MEDS: PERCOCET 5MG/325MG TAB PO PRN ×6 (02:33→20:03)
[2021-10-03] MEDS: QUEtiapine FUMARATE 25 MG TAB PO SCH ×2 (02:39→20:02)
[2021-10-03] MEDS: DICLOFENAC EPOLAMINE 1.3% PATCH TOP SCH ×2 (02:40→20:02)
[2021-10-04] MEDS: ALPRAZolam 0.25 MG TAB PO PRN ×6 (00:19→21:48)
[2021-10-04] MEDS: PERCOCET 5MG/325MG TAB PO PRN ×6 (00:20→21:49)
[2021-10-04 05:20] VITALS: BP 159/81
[2021-10-04] MEDS: QUEtiapine FUMARATE 25 MG TAB PO SCH ×2 (09:30→21:48)
[2021-10-04] MEDS: ACETAMINOPHEN TAB 650MG DOSE (2X325MG) PO PRN (13:14)
[2021-10-04] MEDS: DICLOFENAC EPOLAMINE 1.3% PATCH TOP SCH (13:37)
[2021-10-05] MEDS: ALPRAZolam 0.25 MG TAB PO PRN ×5 (02:10→20:16)
[2021-10-05] MEDS: PERCOCET 5MG/325MG TAB PO PRN ×5 (02:11→20:15)
[2021-10-05] MEDS: RAMELTEON 8 MG TAB (ROZEREM) PO PRN ×2 (02:13→20:15)
[2021-10-05 06:00] VITALS: BP 158/80
[2021-10-05] MEDS: QUEtiapine FUMARATE 25 MG TAB PO SCH ×2 (08:45→20:14)
[2021-10-06] MEDS: ALPRAZolam 0.25 MG TAB PO PRN ×6 (00:39→21:06)
[2021-10-06] MEDS: PERCOCET 5MG/325MG TAB PO PRN ×6 (00:40→21:07)
[2021-10-06 05:47] VITALS: BP 136/79
[2021-10-06] MEDS: QUEtiapine FUMARATE 25 MG TAB PO SCH ×3 (08:43→22:23)
[2021-10-06 08:45] VITALS: BP 155/84
[2021-10-06] MEDS: RAMELTEON 8 MG TAB (ROZEREM) PO PRN (22:23)
[2021-10-07] MEDS: PERCOCET 5MG/325MG TAB PO PRN ×5 (01:19→18:45)
[2021-10-07] MEDS: ALPRAZolam 0.25 MG TAB PO PRN ×5 (01:19→18:44)
[2021-10-07 06:00] VITALS: BP 154/84
[2021-10-07] MEDS: QUEtiapine FUMARATE 25 MG TAB PO SCH ×2 (10:04→21:00)
[2021-10-07] MEDS: DICLOFENAC EPOLAMINE 1.3% PATCH TOP SCH ×2 (10:10→21:00)
[2021-10-08] MEDS: ALPRAZolam 0.25 MG TAB PO PRN ×5 (03:10→21:11)
[2021-10-08] MEDS: PERCOCET 5MG/325MG TAB PO PRN ×5 (03:10→21:12)
[2021-10-08 06:00] VITALS: BP 150/82
[2021-10-08] MEDS: QUEtiapine FUMARATE 25 MG TAB PO SCH ×2 (07:26→21:11)
[2021-10-08] MEDS: DICLOFENAC EPOLAMINE 1.3% PATCH TOP SCH ×2 (07:27→21:11)
[2021-10-08] MEDS: RAMELTEON 8 MG TAB (ROZEREM) PO PRN (21:11)
[2021-10-09] MEDS: ALPRAZolam 0.25 MG TAB PO PRN ×6 (01:12→23:29)
[2021-10-09] MEDS: PERCOCET 5MG/325MG TAB PO PRN ×6 (01:13→23:29)
[2021-10-09 06:00] VITALS: BP 154/76
[2021-10-09] MEDS: DICLOFENAC EPOLAMINE 1.3% PATCH TOP SCH ×2 (09:20→20:55)
[2021-10-09] MEDS: QUEtiapine FUMARATE 25 MG TAB PO SCH ×2 (09:20→20:56)
[2021-10-09] MEDS: RAMELTEON 8 MG TAB (ROZEREM) PO PRN (20:56)
[2021-10-10] MEDS: ALPRAZolam 0.25 MG TAB PO PRN ×5 (03:57→22:08)
[2021-10-10] MEDS: PERCOCET 5MG/325MG TAB PO PRN ×5 (03:58→22:08)
[2021-10-10 06:00] VITALS: BP 148/79
[2021-10-10] MEDS: DICLOFENAC EPOLAMINE 1.3% PATCH TOP SCH ×2 (07:58→20:31)
[2021-10-10] MEDS: QUEtiapine FUMARATE 25 MG TAB PO SCH ×2 (07:59→20:31)
[2021-10-10] MEDS: RAMELTEON 8 MG TAB (ROZEREM) PO PRN (20:31)
[2021-10-11 02:00] VITALS: BP 152/81
[2021-10-11] MEDS: ALPRAZolam 0.25 MG TAB PO PRN ×4 (02:07→22:20)
[2021-10-11] MEDS: PERCOCET 5MG/325MG TAB PO PRN ×5 (02:08→22:21)
[2021-10-11] MEDS: QUEtiapine FUMARATE 25 MG TAB PO SCH ×2 (08:23→22:19)
[2021-10-11] MEDS: DICLOFENAC EPOLAMINE 1.3% PATCH TOP SCH ×2 (09:00→22:20)
[2021-10-11] MEDS: ACETAMINOPHEN TAB 650MG DOSE (2X325MG) PO PRN (18:20)
[2021-10-11] MEDS: RAMELTEON 8 MG TAB (ROZEREM) PO PRN (22:19)
[2021-10-12] MEDS: PERCOCET 5MG/325MG TAB PO PRN ×5 (04:49→22:10)
[2021-10-12] MEDS: ALPRAZolam 0.25 MG TAB PO PRN ×5 (04:50→22:10)
[2021-10-12 04:55] VITALS: BP 152/81
[2021-10-12] MEDS: QUEtiapine FUMARATE 25 MG TAB PO SCH ×2 (09:31→22:47)
[2021-10-12] MEDS: DICLOFENAC EPOLAMINE 1.3% PATCH TOP SCH ×2 (09:32→22:11)
[2021-10-12] MEDS: ACETAMINOPHEN TAB 650MG DOSE (2X325MG) PO PRN (16:53)
[2021-10-12] MEDS: RAMELTEON 8 MG TAB (ROZEREM) PO PRN (22:47)
[2021-10-13] MEDS: ALPRAZolam 0.25 MG TAB PO PRN ×5 (02:42→20:12)
[2021-10-13] MEDS: PERCOCET 5MG/325MG TAB PO PRN ×5 (02:43→20:13)
[2021-10-13] MEDS: QUEtiapine FUMARATE 25 MG TAB PO SCH ×2 (09:39→20:13)
[2021-10-13] MEDS: DICLOFENAC EPOLAMINE 1.3% PATCH TOP SCH ×2 (09:40→20:12)
[2021-10-13] MEDS: RAMELTEON 8 MG TAB (ROZEREM) PO PRN (20:13)
[2021-10-14] MEDS: ALPRAZolam 0.25 MG TAB PO PRN ×6 (00:28→22:01)
[2021-10-14] MEDS: PERCOCET 5MG/325MG TAB PO PRN ×6 (00:29→22:01)
[2021-10-14 08:00] VITALS: BP 123/72
[2021-10-14] MEDS: QUEtiapine FUMARATE 25 MG TAB PO SCH ×2 (09:56→22:02)
[2021-10-14] MEDS: DICLOFENAC EPOLAMINE 1.3% PATCH TOP SCH ×2 (09:57→22:02)
[2021-10-14] MEDS: RAMELTEON 8 MG TAB (ROZEREM) PO PRN (22:02)
[2021-10-15 02:17] VITALS: BP 166/88
[2021-10-15] MEDS: PERCOCET 5MG/325MG TAB PO PRN ×6 (02:21→22:32)
[2021-10-15] MEDS: ALPRAZolam 0.25 MG TAB PO PRN ×6 (02:21→22:31)
[2021-10-15] MEDS: QUEtiapine FUMARATE 25 MG TAB PO SCH ×2 (08:29→22:32)
[2021-10-15] MEDS: DICLOFENAC EPOLAMINE 1.3% PATCH TOP SCH ×2 (08:29→22:31)
[2021-10-15 17:57] LABS: HEMATOCRIT 44.2 % (42.0-52.0); HEMOGLOBIN 14.6 g/dl (13.5-17.5); MEAN CORPUSCULAR HEMOGLOBIN 29.6 pg (27.0-33.0); MEAN CORPUSCULAR VOLUME 89.5 fl (80.0-96.0); PLATELET COUNT, AUTOMATED 231 10^3/uL (150-450); RED BLOOD COUNT 4.94 10^6/uL (4.30-6.10); WHITE BLOOD COUNT 11.3 10^3/uL (4.0-10.0)
[2021-10-15 18:40] LABS: ALBUMIN 3.1 GM/DL (3.2-5.2); ALKALINE PHOSPHATASE 96 U/L (45-117); ALT/SGPT 84 U/L (12-78); AST/SGOT 45 U/L (7-37); BILIRUBIN,TOTAL 0.3 MG/DL (0.2-1.0); BLOOD UREA NITROGEN 18 MG/DL (7-18); CALCIUM LEVEL 8.5 MG/DL (8.8-10.2); CARBON DIOXIDE LEVEL 27 MEQ/L (21-32); CHLORIDE LEVEL 107 MEQ/L (98-107); CHOLESTEROL LEVEL 224 MG/DL (<200); CHOLESTEROL RISK RATIO 8.296 (<5); CREATININE FOR GFR 1.13 MG/DL (0.70-1.30); GLOMERULAR FILTRATION RATE > 60.0 (>35); GLUCOSE, FASTING 234 MG/DL (70-100); HDL CHOLESTEROL 27 MG/DL (>40); NON-HDL-C 197 MG/DL; SODIUM LEVEL 139 MEQ/L (136-145); TRIGLYCERIDES LEVEL 705 MG/DL (<150)
[2021-10-15] MEDS ORDERED: PILL CUTTER 1 EACH XX PRN (19:00)
[2021-10-15 21:09] LABS: HEMOGLOBIN A1c 6.3 %
[2021-10-15] MEDS: ROSUVASTATIN 10 MG TAB (CRESTOR) PO SCH (22:31)
[2021-10-15] MEDS: RAMELTEON 8 MG TAB (ROZEREM) PO PRN (22:32)
[2021-10-16] MEDS: PERCOCET 5MG/325MG TAB PO PRN ×5 (02:49→23:30)
[2021-10-16] MEDS: ALPRAZolam 0.25 MG TAB PO PRN ×5 (02:49→23:29)
[2021-10-16] MEDS: QUEtiapine FUMARATE 25 MG TAB PO SCH ×2 (10:47→20:44)
[2021-10-16] MEDS: DICLOFENAC EPOLAMINE 1.3% PATCH TOP SCH ×2 (10:47→20:44)
[2021-10-16] MEDS: ROSUVASTATIN 10 MG TAB (CRESTOR) PO SCH (20:44)
[2021-10-16] MEDS: RAMELTEON 8 MG TAB (ROZEREM) PO PRN (20:44)
[2021-10-17] MEDS: ALPRAZolam 0.25 MG TAB PO PRN ×5 (04:25→21:19)
[2021-10-17] MEDS: PERCOCET 5MG/325MG TAB PO PRN ×5 (04:26→21:19)
[2021-10-17] MEDS: DICLOFENAC EPOLAMINE 1.3% PATCH TOP SCH ×2 (08:39→21:21)
[2021-10-17] MEDS: QUEtiapine FUMARATE 25 MG TAB PO SCH ×2 (08:40→21:19)
[2021-10-17] MEDS: ROSUVASTATIN 10 MG TAB (CRESTOR) PO SCH (21:19)
[2021-10-17] MEDS: RAMELTEON 8 MG TAB (ROZEREM) PO PRN (21:19)
[2021-10-18] MEDS: PERCOCET 5MG/325MG TAB PO PRN ×7 (01:51→22:17)
[2021-10-18] MEDS: ALPRAZolam 0.25 MG TAB PO PRN ×6 (01:52→22:17)
[2021-10-18 05:24] VITALS: BP 156/94
[2021-10-18] MEDS: QUEtiapine FUMARATE 25 MG TAB PO SCH ×2 (10:19→21:48)
[2021-10-18] MEDS: DICLOFENAC EPOLAMINE 1.3% PATCH TOP SCH ×2 (10:19→21:48)
[2021-10-18] MEDS: RAMELTEON 8 MG TAB (ROZEREM) PO PRN (21:49)
[2021-10-18] MEDS: ROSUVASTATIN 10 MG TAB (CRESTOR) PO SCH (21:49)
[2021-10-19] MEDS: ALPRAZolam 0.25 MG TAB PO PRN ×6 (02:20→22:31)
[2021-10-19] MEDS: PERCOCET 5MG/325MG TAB PO PRN ×6 (02:21→22:32)
[2021-10-19 05:25] VITALS: BP 156/84
[2021-10-19] MEDS: DICLOFENAC EPOLAMINE 1.3% PATCH TOP SCH ×2 (10:26→22:30)
[2021-10-19] MEDS: QUEtiapine FUMARATE 25 MG TAB PO SCH ×2 (10:27→22:33)
[2021-10-19] MEDS: ASPIRIN 81MG CHEW TABLET PO SCH (18:27)
[2021-10-19] MEDS: RAMELTEON 8 MG TAB (ROZEREM) PO PRN (22:31)
[2021-10-19] MEDS: ROSUVASTATIN 10 MG TAB (CRESTOR) PO SCH (22:32)
[2021-10-20 03:01] VITALS: BP 152/82
[2021-10-20] MEDS: PERCOCET 5MG/325MG TAB PO PRN ×5 (03:11→21:20)
[2021-10-20] MEDS: ALPRAZolam 0.25 MG TAB PO PRN ×5 (03:13→21:19)
[2021-10-20] MEDS: DICLOFENAC EPOLAMINE 1.3% PATCH TOP SCH ×2 (09:43→21:00)
[2021-10-20] MEDS: QUEtiapine FUMARATE 25 MG TAB PO SCH ×2 (09:44→21:19)
[2021-10-20] MEDS: ASPIRIN 81MG CHEW TABLET PO SCH (09:44)
[2021-10-20] MEDS: RAMELTEON 8 MG TAB (ROZEREM) PO PRN (21:19)
[2021-10-20] MEDS: ROSUVASTATIN 10 MG TAB (CRESTOR) PO SCH (21:19)
[2021-10-21] MEDS: ALPRAZolam 0.25 MG TAB PO PRN ×6 (02:34→22:53)
[2021-10-21] MEDS: PERCOCET 5MG/325MG TAB PO PRN ×6 (02:34→22:53)
[2021-10-21 06:33] VITALS: BP 159/82
[2021-10-21] MEDS: ASPIRIN 81MG CHEW TABLET PO SCH (10:32)
[2021-10-21] MEDS: QUEtiapine FUMARATE 25 MG TAB PO SCH ×2 (10:34→22:52)
[2021-10-21] MEDS: DICLOFENAC EPOLAMINE 1.3% PATCH TOP SCH ×2 (10:35→22:53)
[2021-10-21] MEDS: ROSUVASTATIN 10 MG TAB (CRESTOR) PO SCH (22:53)
[2021-10-22 01:56] VITALS: BP 157/83
[2021-10-22] MEDS: PERCOCET 5MG/325MG TAB PO PRN ×5 (04:33→20:32)
[2021-10-22] MEDS: ALPRAZolam 0.25 MG TAB PO PRN ×5 (04:33→20:32)
[2021-10-22] MEDS: ASPIRIN 81MG CHEW TABLET PO SCH (08:32)
[2021-10-22] MEDS: DICLOFENAC EPOLAMINE 1.3% PATCH TOP SCH ×2 (08:32→20:31)
[2021-10-22] MEDS: QUEtiapine FUMARATE 25 MG TAB PO SCH ×2 (08:33→20:31)
[2021-10-22 16:25] VITALS: BP 154/81
[2021-10-22] MEDS: ROSUVASTATIN 10 MG TAB (CRESTOR) PO SCH (20:32)
[2021-10-22] MEDS: RAMELTEON 8 MG TAB (ROZEREM) PO PRN (20:36)
[2021-10-23] MEDS: ALPRAZolam 0.25 MG TAB PO PRN ×4 (00:33→12:35)
[2021-10-23] MEDS: PERCOCET 5MG/325MG TAB PO PRN ×4 (00:34→12:35)
[2021-10-23 06:00] VITALS: BP 136/80
[2021-10-23 08:31] VITALS: BP 140/77
[2021-10-23] MEDS: QUEtiapine FUMARATE 25 MG TAB PO SCH ×2 (08:34→20:54)
[2021-10-23] MEDS: ASPIRIN 81MG CHEW TABLET PO SCH (08:34)
[2021-10-23] MEDS: DICLOFENAC EPOLAMINE 1.3% PATCH TOP SCH ×2 (08:35→20:54)
[2021-10-23] MEDS: FUROSEMIDE 10MG PER 1/2 TABLET PO SCH (09:00)
[2021-10-23] MEDS: ROSUVASTATIN 10 MG TAB (CRESTOR) PO SCH (20:53)
[2021-10-24] MEDS: DICLOFENAC EPOLAMINE 1.3% PATCH TOP SCH ×2 (09:24→21:00)
[2021-10-24] MEDS: ASPIRIN 81MG CHEW TABLET PO SCH (09:25)
[2021-10-24] MEDS: PERCOCET 5MG/325MG TAB PO PRN ×4 (09:25→22:21)
[2021-10-24] MEDS: FUROSEMIDE 10MG PER 1/2 TABLET PO SCH (09:25)
[2021-10-24] MEDS: ALPRAZolam 0.25 MG TAB PO PRN ×4 (09:26→22:21)
[2021-10-24] MEDS: QUEtiapine FUMARATE 25 MG TAB PO SCH ×2 (09:26→22:20)
[2021-10-24] MEDS: RAMELTEON 8 MG TAB (ROZEREM) PO PRN (22:21)
[2021-10-24] MEDS: ROSUVASTATIN 10 MG TAB (CRESTOR) PO SCH (22:21)
[2021-10-25] MEDS: ALPRAZolam 0.25 MG TAB PO PRN ×6 (02:54→23:55)
[2021-10-25] MEDS: PERCOCET 5MG/325MG TAB PO PRN ×6 (02:55→23:55)
[2021-10-25] MEDS: DICLOFENAC EPOLAMINE 1.3% PATCH TOP SCH ×2 (07:32→21:55)
[2021-10-25] MEDS: ASPIRIN 81MG CHEW TABLET PO SCH (07:33)
[2021-10-25] MEDS: QUEtiapine FUMARATE 25 MG TAB PO SCH ×2 (07:33→21:55)
[2021-10-25] MEDS: FUROSEMIDE 10MG PER 1/2 TABLET PO SCH (07:33)
[2021-10-25] MEDS: ROSUVASTATIN 10 MG TAB (CRESTOR) PO SCH (21:55)
[2021-10-26] MEDS: ALPRAZolam 0.25 MG TAB PO PRN ×5 (04:42→21:25)
[2021-10-26] MEDS: PERCOCET 5MG/325MG TAB PO PRN ×5 (04:43→21:24)
[2021-10-26] MEDS: ASPIRIN 81MG CHEW TABLET PO SCH (09:02)
[2021-10-26] MEDS: FUROSEMIDE 10MG PER 1/2 TABLET PO SCH (09:03)
[2021-10-26] MEDS: QUEtiapine FUMARATE 25 MG TAB PO SCH ×2 (09:03→21:25)
[2021-10-26] MEDS: DICLOFENAC EPOLAMINE 1.3% PATCH TOP SCH ×2 (09:03→21:00)
[2021-10-26] MEDS: RAMELTEON 8 MG TAB (ROZEREM) PO PRN (21:23)
[2021-10-26] MEDS: ROSUVASTATIN 10 MG TAB (CRESTOR) PO SCH (21:24)
[2021-10-27] MEDS: ALPRAZolam 0.25 MG TAB PO PRN ×6 (01:25→23:00)
[2021-10-27] MEDS: PERCOCET 5MG/325MG TAB PO PRN ×6 (01:25→23:01)
[2021-10-27] MEDS: DICLOFENAC EPOLAMINE 1.3% PATCH TOP SCH ×3 (09:00→23:02)
[2021-10-27] MEDS: ASPIRIN 81MG CHEW TABLET PO SCH (09:36)
[2021-10-27] MEDS: QUEtiapine FUMARATE 25 MG TAB PO SCH ×2 (09:36→23:01)
[2021-10-27] MEDS: FUROSEMIDE 10MG PER 1/2 TABLET PO SCH (09:37)
[2021-10-27] MEDS: ROSUVASTATIN 10 MG TAB (CRESTOR) PO SCH (23:00)
[2021-10-27] MEDS: RAMELTEON 8 MG TAB (ROZEREM) PO PRN (23:00)
[2021-10-28] MEDS: ALPRAZolam 0.25 MG TAB PO PRN ×5 (03:10→20:20)
[2021-10-28] MEDS: PERCOCET 5MG/325MG TAB PO PRN ×5 (03:10→20:20)
[2021-10-28] MEDS: FUROSEMIDE 10MG PER 1/2 TABLET PO SCH (07:56)
[2021-10-28] MEDS: DICLOFENAC EPOLAMINE 1.3% PATCH TOP SCH ×2 (07:56→20:18)
[2021-10-28] MEDS: QUEtiapine FUMARATE 25 MG TAB PO SCH ×2 (08:03→20:19)
[2021-10-28] MEDS: ASPIRIN 81MG CHEW TABLET PO SCH (08:03)
[2021-10-28] MEDS: RAMELTEON 8 MG TAB (ROZEREM) PO PRN (20:19)
[2021-10-28] MEDS: ROSUVASTATIN 10 MG TAB (CRESTOR) PO SCH (20:19)
[2021-10-29] MEDS: PERCOCET 5MG/325MG TAB PO PRN ×5 (04:37→21:08)
[2021-10-29] MEDS: ALPRAZolam 0.25 MG TAB PO PRN ×4 (04:37→21:07)
[2021-10-29] MEDS: ASPIRIN 81MG CHEW TABLET PO SCH (08:52)
[2021-10-29] MEDS: DICLOFENAC EPOLAMINE 1.3% PATCH TOP SCH ×3 (08:53→21:07)
[2021-10-29] MEDS: QUEtiapine FUMARATE 25 MG TAB PO SCH ×2 (08:53→21:07)
[2021-10-29] MEDS: RAMELTEON 8 MG TAB (ROZEREM) PO PRN (21:07)
[2021-10-29] MEDS: ROSUVASTATIN 10 MG TAB (CRESTOR) PO SCH (21:08)
[2021-10-30] MEDS: PERCOCET 5MG/325MG TAB PO PRN ×6 (01:06→23:56)
[2021-10-30] MEDS: ALPRAZolam 0.25 MG TAB PO PRN ×6 (01:08→23:56)
[2021-10-30] MEDS: ASPIRIN 81MG CHEW TABLET PO SCH (09:21)
[2021-10-30] MEDS: DICLOFENAC EPOLAMINE 1.3% PATCH TOP SCH ×2 (09:21→19:55)
[2021-10-30] MEDS: QUEtiapine FUMARATE 25 MG TAB PO SCH ×2 (09:21→19:54)
[2021-10-30] MEDS: ROSUVASTATIN 10 MG TAB (CRESTOR) PO SCH (19:54)
[2021-10-31] MEDS: ALPRAZolam 0.25 MG TAB PO PRN ×5 (04:04→20:11)
[2021-10-31] MEDS: PERCOCET 5MG/325MG TAB PO PRN ×5 (04:05→20:12)
[2021-10-31] MEDS: ASPIRIN 81MG CHEW TABLET PO SCH (08:13)
[2021-10-31] MEDS: QUEtiapine FUMARATE 25 MG TAB PO SCH ×2 (08:13→20:11)
[2021-10-31] MEDS: DICLOFENAC EPOLAMINE 1.3% PATCH TOP SCH ×2 (08:14→20:13)
[2021-10-31] MEDS: ROSUVASTATIN 10 MG TAB (CRESTOR) PO SCH (20:11)
[2021-11-01] MEDS: ALPRAZolam 0.25 MG TAB PO PRN ×6 (00:57→21:02)
[2021-11-01] MEDS: RAMELTEON 8 MG TAB (ROZEREM) PO PRN (00:57)
[2021-11-01] MEDS: PERCOCET 5MG/325MG TAB PO PRN ×6 (00:58→21:03)
[2021-11-01] MEDS: ASPIRIN 81MG CHEW TABLET PO SCH (09:00)
[2021-11-01] MEDS: QUEtiapine FUMARATE 25 MG TAB PO SCH ×2 (09:00→21:02)
[2021-11-01] MEDS: DICLOFENAC EPOLAMINE 1.3% PATCH TOP SCH ×2 (09:00→21:03)
[2021-11-01] MEDS: ROSUVASTATIN 10 MG TAB (CRESTOR) PO SCH (21:02)
[2021-11-02] MEDS: RAMELTEON 8 MG TAB (ROZEREM) PO PRN ×2 (00:59→21:07)
[2021-11-02] MEDS: ALPRAZolam 0.25 MG TAB PO PRN ×6 (00:59→21:07)
[2021-11-02] MEDS: PERCOCET 5MG/325MG TAB PO PRN ×6 (01:00→21:06)
[2021-11-02 06:00] VITALS: BP 142/78
[2021-11-02] MEDS: DICLOFENAC EPOLAMINE 1.3% PATCH TOP SCH ×2 (08:48→21:00)
[2021-11-02] MEDS: QUEtiapine FUMARATE 25 MG TAB PO SCH ×2 (09:01→21:07)
[2021-11-02] MEDS: ASPIRIN 81MG CHEW TABLET PO SCH (09:01)
[2021-11-02] MEDS: ROSUVASTATIN 10 MG TAB (CRESTOR) PO SCH (21:07)
[2021-11-03] MEDS: ALPRAZolam 0.25 MG TAB PO PRN ×5 (01:29→22:23)
[2021-11-03] MEDS: PERCOCET 5MG/325MG TAB PO PRN ×5 (01:30→22:23)
[2021-11-03] MEDS: DICLOFENAC EPOLAMINE 1.3% PATCH TOP SCH ×2 (09:00→21:00)
[2021-11-03] MEDS: ASPIRIN 81MG CHEW TABLET PO SCH (10:16)
[2021-11-03] MEDS: QUEtiapine FUMARATE 25 MG TAB PO SCH ×2 (10:16→22:23)
[2021-11-03] MEDS: SENOKOT S TAB PO PRN (10:20)
[2021-11-03] MEDS: RAMELTEON 8 MG TAB (ROZEREM) PO PRN (22:23)
[2021-11-03] MEDS: ROSUVASTATIN 10 MG TAB (CRESTOR) PO SCH (22:23)
[2021-11-03] MEDS ORDERED: PINK BISMUTH SUSP 524MG/30ML ORAL SYRINGE PO PRN (22:25)
[2021-11-04] MEDS: ALPRAZolam 0.25 MG TAB PO PRN ×5 (02:56→20:59)
[2021-11-04] MEDS: PERCOCET 5MG/325MG TAB PO PRN ×5 (02:56→20:59)
[2021-11-04] MEDS: SENOKOT S TAB PO PRN ×2 (02:58→12:12)
[2021-11-04 06:14] VITALS: BP 149/76
[2021-11-04] MEDS: DICLOFENAC EPOLAMINE 1.3% PATCH TOP SCH ×2 (07:23→21:00)
[2021-11-04] MEDS: QUEtiapine FUMARATE 25 MG TAB PO SCH ×2 (07:44→20:58)
[2021-11-04] MEDS: ASPIRIN 81MG CHEW TABLET PO SCH (07:44)
[2021-11-04] MEDS: ROSUVASTATIN 10 MG TAB (CRESTOR) PO SCH (20:58)
[2021-11-04] MEDS: RAMELTEON 8 MG TAB (ROZEREM) PO PRN (20:58)
[2021-11-05] MEDS: PERCOCET 5MG/325MG TAB PO PRN ×6 (02:19→23:37)
[2021-11-05] MEDS: ALPRAZolam 0.25 MG TAB PO PRN ×6 (02:19→23:36)
[2021-11-05] MEDS: DICLOFENAC EPOLAMINE 1.3% PATCH TOP SCH ×2 (09:00→19:28)
[2021-11-05] MEDS: ASPIRIN 81MG CHEW TABLET PO SCH (10:35)
[2021-11-05] MEDS: QUEtiapine FUMARATE 25 MG TAB PO SCH ×2 (10:36→19:26)
[2021-11-05] MEDS: ROSUVASTATIN 10 MG TAB (CRESTOR) PO SCH (19:27)
[2021-11-06] MEDS: QUEtiapine FUMARATE 25 MG TAB PO SCH ×2 (07:30→20:08)
[2021-11-06] MEDS: ALPRAZolam 0.25 MG TAB PO PRN ×4 (07:30→20:09)
[2021-11-06] MEDS: ASPIRIN 81MG CHEW TABLET PO SCH (07:30)
[2021-11-06] MEDS: PERCOCET 5MG/325MG TAB PO PRN ×4 (07:30→20:09)
[2021-11-06] MEDS: DICLOFENAC EPOLAMINE 1.3% PATCH TOP SCH ×2 (07:30→20:09)
[2021-11-06] MEDS: ROSUVASTATIN 10 MG TAB (CRESTOR) PO SCH (20:08)
[2021-11-06] MEDS: RAMELTEON 8 MG TAB (ROZEREM) PO PRN (20:08)
[2021-11-07] MEDS: PERCOCET 5MG/325MG TAB PO PRN ×6 (00:59→21:58)
[2021-11-07] MEDS: ALPRAZolam 0.25 MG TAB PO PRN ×6 (00:59→21:57)
[2021-11-07 06:00] VITALS: BP 159/86
[2021-11-07] MEDS: DICLOFENAC EPOLAMINE 1.3% PATCH TOP SCH ×3 (08:13→20:47)
[2021-11-07] MEDS: ASPIRIN 81MG CHEW TABLET PO SCH (08:14)
[2021-11-07] MEDS: QUEtiapine FUMARATE 25 MG TAB PO SCH ×2 (08:14→20:46)
[2021-11-07] MEDS: ROSUVASTATIN 10 MG TAB (CRESTOR) PO SCH (20:45)
[2021-11-08] MEDS: ALPRAZolam 0.25 MG TAB PO PRN ×6 (01:56→23:29)
[2021-11-08] MEDS: PERCOCET 5MG/325MG TAB PO PRN ×6 (01:57→23:29)
[2021-11-08 06:21] VITALS: BP 128/70
[2021-11-08] MEDS: DICLOFENAC EPOLAMINE 1.3% PATCH TOP SCH ×3 (09:00→21:00)
[2021-11-08] MEDS: ASPIRIN 81MG CHEW TABLET PO SCH (10:57)
[2021-11-08] MEDS: QUEtiapine FUMARATE 25 MG TAB PO SCH ×2 (10:57→23:29)
[2021-11-08] MEDS: ROSUVASTATIN 10 MG TAB (CRESTOR) PO SCH (23:29)
[2021-11-08] MEDS: RAMELTEON 8 MG TAB (ROZEREM) PO PRN (23:29)
[2021-11-09] MEDS: PERCOCET 5MG/325MG TAB PO PRN ×5 (03:31→19:55)
[2021-11-09] MEDS: ALPRAZolam 0.25 MG TAB PO PRN ×5 (03:31→19:56)
[2021-11-09] MEDS: DICLOFENAC EPOLAMINE 1.3% PATCH TOP SCH ×2 (07:30→19:56)
[2021-11-09] MEDS: ASPIRIN 81MG CHEW TABLET PO SCH (07:32)
[2021-11-09] MEDS: QUEtiapine FUMARATE 25 MG TAB PO SCH ×2 (07:32→19:56)
[2021-11-09] MEDS: ROSUVASTATIN 10 MG TAB (CRESTOR) PO SCH (19:55)
[2021-11-09] MEDS: RAMELTEON 8 MG TAB (ROZEREM) PO PRN (19:56)
[2021-11-10] MEDS: PERCOCET 5MG/325MG TAB PO PRN ×6 (00:41→20:40)
[2021-11-10] MEDS: ALPRAZolam 0.25 MG TAB PO PRN ×6 (00:41→20:39)
[2021-11-10] MEDS: ASPIRIN 81MG CHEW TABLET PO SCH (07:47)
[2021-11-10] MEDS: QUEtiapine FUMARATE 25 MG TAB PO SCH ×2 (07:47→22:19)
[2021-11-10] MEDS: DICLOFENAC EPOLAMINE 1.3% PATCH TOP SCH ×2 (09:00→20:39)
[2021-11-10] MEDS: RAMELTEON 8 MG TAB (ROZEREM) PO PRN (20:39)
[2021-11-10] MEDS: ROSUVASTATIN 10 MG TAB (CRESTOR) PO SCH (20:39)
[2021-11-10] MEDS: SENOKOT S TAB PO PRN (22:39)
[2021-11-11] MEDS: PERCOCET 5MG/325MG TAB PO PRN ×7 (00:35→20:25)
[2021-11-11] MEDS: ALPRAZolam 0.25 MG TAB PO PRN ×6 (00:36→20:18)
[2021-11-11] MEDS: ASPIRIN 81MG CHEW TABLET PO SCH (08:30)
[2021-11-11] MEDS: QUEtiapine FUMARATE 25 MG TAB PO SCH ×2 (08:30→20:18)
[2021-11-11] MEDS: DICLOFENAC EPOLAMINE 1.3% PATCH TOP SCH ×2 (08:34→21:00)
[2021-11-11] MEDS: RAMELTEON 8 MG TAB (ROZEREM) PO PRN (20:18)
[2021-11-11] MEDS: ROSUVASTATIN 10 MG TAB (CRESTOR) PO SCH (20:18)
[2021-11-12] MEDS: ALPRAZolam 0.25 MG TAB PO PRN ×6 (00:17→21:00)
[2021-11-12] MEDS: PERCOCET 5MG/325MG TAB PO PRN ×6 (00:18→21:01)
[2021-11-12 04:00] VITALS: BP 146/70
[2021-11-12] MEDS: DICLOFENAC EPOLAMINE 1.3% PATCH TOP SCH ×2 (08:01→21:01)
[2021-11-12] MEDS: ASPIRIN 81MG CHEW TABLET PO SCH (09:02)
[2021-11-12] MEDS: QUEtiapine FUMARATE 25 MG TAB PO SCH ×2 (09:02→21:00)
[2021-11-12] MEDS: ROSUVASTATIN 10 MG TAB (CRESTOR) PO SCH (20:59)
[2021-11-12] MEDS: RAMELTEON 8 MG TAB (ROZEREM) PO PRN (21:00)
[2021-11-13] MEDS: ALPRAZolam 0.25 MG TAB PO PRN ×6 (02:22→22:59)
[2021-11-13] MEDS: PERCOCET 5MG/325MG TAB PO PRN ×6 (02:22→23:00)
[2021-11-13] MEDS: DICLOFENAC EPOLAMINE 1.3% PATCH TOP SCH ×2 (09:00→21:00)
[2021-11-13] MEDS: QUEtiapine FUMARATE 25 MG TAB PO SCH ×2 (10:33→22:58)
[2021-11-13] MEDS: ASPIRIN 81MG CHEW TABLET PO SCH (10:33)
[2021-11-13] MEDS: ROSUVASTATIN 10 MG TAB (CRESTOR) PO SCH (22:59)
[2021-11-13] MEDS: RAMELTEON 8 MG TAB (ROZEREM) PO PRN (22:59)
[2021-11-14] MEDS: ALPRAZolam 0.25 MG TAB PO PRN ×5 (03:00→20:11)
[2021-11-14] MEDS: PERCOCET 5MG/325MG TAB PO PRN ×5 (03:03→20:12)
[2021-11-14] MEDS: DICLOFENAC EPOLAMINE 1.3% PATCH TOP SCH ×2 (09:00→20:12)
[2021-11-14] MEDS: ASPIRIN 81MG CHEW TABLET PO SCH (11:36)
[2021-11-14] MEDS: QUEtiapine FUMARATE 25 MG TAB PO SCH ×2 (11:36→20:11)
[2021-11-14] MEDS: ROSUVASTATIN 10 MG TAB (CRESTOR) PO SCH (20:11)
[2021-11-15] MEDS: PERCOCET 5MG/325MG TAB PO PRN ×6 (00:43→23:26)
[2021-11-15] MEDS: ALPRAZolam 0.25 MG TAB PO PRN ×6 (00:43→23:27)
[2021-11-15] MEDS: DICLOFENAC EPOLAMINE 1.3% PATCH TOP SCH ×2 (09:00→20:45)
[2021-11-15] MEDS: QUEtiapine FUMARATE 25 MG TAB PO SCH ×2 (09:14→20:44)
[2021-11-15] MEDS: ASPIRIN 81MG CHEW TABLET PO SCH (09:14)
[2021-11-15] MEDS: ROSUVASTATIN 10 MG TAB (CRESTOR) PO SCH (20:45)
[2021-11-15] MEDS: RAMELTEON 8 MG TAB (ROZEREM) PO PRN (21:12)
[2021-11-16] MEDS: PERCOCET 5MG/325MG TAB PO PRN ×5 (03:32→22:11)
[2021-11-16] MEDS: ALPRAZolam 0.25 MG TAB PO PRN ×5 (03:33→22:10)
[2021-11-16] MEDS: ASPIRIN 81MG CHEW TABLET PO SCH (07:59)
[2021-11-16] MEDS: QUEtiapine FUMARATE 25 MG TAB PO SCH ×2 (07:59→22:09)
[2021-11-16] MEDS: DICLOFENAC EPOLAMINE 1.3% PATCH TOP SCH ×2 (08:00→21:00)
[2021-11-16] MEDS: ROSUVASTATIN 10 MG TAB (CRESTOR) PO SCH (22:08)
[2021-11-16] MEDS: RAMELTEON 8 MG TAB (ROZEREM) PO PRN (22:10)
[2021-11-17] MEDS: ALPRAZolam 0.25 MG TAB PO PRN ×5 (02:24→20:59)
[2021-11-17] MEDS: PERCOCET 5MG/325MG TAB PO PRN ×5 (02:26→20:59)
[2021-11-17 06:00] VITALS: BP 147/73
[2021-11-17] MEDS: DICLOFENAC EPOLAMINE 1.3% PATCH TOP SCH ×2 (09:00→21:00)
[2021-11-17] MEDS: QUEtiapine FUMARATE 25 MG TAB PO SCH ×2 (11:01→20:58)
[2021-11-17] MEDS: ASPIRIN 81MG CHEW TABLET PO SCH (11:01)
[2021-11-17] MEDS: ROSUVASTATIN 10 MG TAB (CRESTOR) PO SCH (20:59)
[2021-11-17] MEDS: RAMELTEON 8 MG TAB (ROZEREM) PO PRN (20:59)
[2021-11-18] MEDS: PERCOCET 5MG/325MG TAB PO PRN ×6 (01:00→22:03)
[2021-11-18] MEDS: ALPRAZolam 0.25 MG TAB PO PRN ×6 (01:00→22:03)
[2021-11-18] MEDS: DICLOFENAC EPOLAMINE 1.3% PATCH TOP SCH ×2 (09:00→21:00)
[2021-11-18] MEDS: QUEtiapine FUMARATE 25 MG TAB PO SCH ×2 (09:14→22:03)
[2021-11-18] MEDS: ASPIRIN 81MG CHEW TABLET PO SCH (11:11)
[2021-11-18] MEDS: RAMELTEON 8 MG TAB (ROZEREM) PO PRN (22:04)
[2021-11-18] MEDS: ROSUVASTATIN 10 MG TAB (CRESTOR) PO SCH (22:04)
[2021-11-19] MEDS: PERCOCET 5MG/325MG TAB PO PRN ×6 (02:30→23:31)
[2021-11-19] MEDS: ALPRAZolam 0.25 MG TAB PO PRN ×6 (02:31→23:32)
[2021-11-19] MEDS: SENOKOT S TAB PO PRN ×3 (02:34→19:12)
[2021-11-19 06:00] VITALS: BP 148/74
[2021-11-19] MEDS: DICLOFENAC EPOLAMINE 1.3% PATCH TOP SCH ×2 (09:00→20:26)
[2021-11-19] MEDS: QUEtiapine FUMARATE 25 MG TAB PO SCH ×2 (09:35→20:27)
[2021-11-19] MEDS: ASPIRIN 81MG CHEW TABLET PO SCH (09:36)
[2021-11-19] MEDS: ROSUVASTATIN 10 MG TAB (CRESTOR) PO SCH (20:26)
[2021-11-19] MEDS: RAMELTEON 8 MG TAB (ROZEREM) PO PRN (20:27)
[2021-11-20] MEDS: PERCOCET 5MG/325MG TAB PO PRN ×6 (03:33→23:46)
[2021-11-20] MEDS: ALPRAZolam 0.25 MG TAB PO PRN ×6 (03:33→23:47)
[2021-11-20] MEDS: DICLOFENAC EPOLAMINE 1.3% PATCH TOP SCH ×2 (09:00→21:31)
[2021-11-20] MEDS: ASPIRIN 81MG CHEW TABLET PO SCH (11:39)
[2021-11-20] MEDS: QUEtiapine FUMARATE 25 MG TAB PO SCH ×2 (11:40→21:31)
[2021-11-20] MEDS: ROSUVASTATIN 10 MG TAB (CRESTOR) PO SCH (21:30)
[2021-11-20] MEDS: SENOKOT S TAB PO PRN (21:32)
[2021-11-21] MEDS: ALPRAZolam 0.25 MG TAB PO PRN ×5 (04:20→22:01)
[2021-11-21] MEDS: PERCOCET 5MG/325MG TAB PO PRN ×4 (04:21→17:59)
[2021-11-21 06:58] VITALS: BP 147/73
[2021-11-21] MEDS: ASPIRIN 81MG CHEW TABLET PO SCH (08:47)
[2021-11-21] MEDS: QUEtiapine FUMARATE 25 MG TAB PO SCH ×2 (08:47→22:20)
[2021-11-21] MEDS: DICLOFENAC EPOLAMINE 1.3% PATCH TOP SCH ×2 (09:00→21:00)
[2021-11-21] MEDS: RAMELTEON 8 MG TAB (ROZEREM) PO PRN (21:59)
[2021-11-21] MEDS: ROSUVASTATIN 10 MG TAB (CRESTOR) PO SCH (22:01)
[2021-11-22] MEDS: ALPRAZolam 0.25 MG TAB PO PRN ×6 (01:57→23:59)
[2021-11-22] MEDS: PERCOCET 5MG/325MG TAB PO PRN ×6 (01:57→23:59)
[2021-11-22] MEDS: SENOKOT S TAB PO PRN ×2 (06:03→20:08)
[2021-11-22 06:15] VITALS: BP 157/90
[2021-11-22] MEDS: DICLOFENAC EPOLAMINE 1.3% PATCH TOP SCH ×2 (09:00→21:00)
[2021-11-22] MEDS: ASPIRIN 81MG CHEW TABLET PO SCH (09:55)
[2021-11-22] MEDS: QUEtiapine FUMARATE 25 MG TAB PO SCH ×2 (09:55→20:03)
[2021-11-22] MEDS: RAMELTEON 8 MG TAB (ROZEREM) PO PRN (20:05)
[2021-11-22] MEDS: ROSUVASTATIN 10 MG TAB (CRESTOR) PO SCH (21:47)
[2021-11-23] MEDS: ALPRAZolam 0.25 MG TAB PO PRN ×5 (04:45→21:29)
[2021-11-23] MEDS: PERCOCET 5MG/325MG TAB PO PRN ×5 (04:46→21:28)
[2021-11-23] MEDS: DICLOFENAC EPOLAMINE 1.3% PATCH TOP SCH ×2 (08:44→21:00)
[2021-11-23] MEDS: QUEtiapine FUMARATE 25 MG TAB PO SCH ×2 (08:44→21:29)
[2021-11-23] MEDS: ASPIRIN 81MG CHEW TABLET PO SCH (08:44)
[2021-11-23 08:50] VITALS: BP 157/87
[2021-11-23] MEDS: ROSUVASTATIN 10 MG TAB (CRESTOR) PO SCH (21:28)
[2021-11-23] MEDS: RAMELTEON 8 MG TAB (ROZEREM) PO PRN (21:29)
[2021-11-24] MEDS: ALPRAZolam 0.25 MG TAB PO PRN ×6 (01:52→23:55)
[2021-11-24] MEDS: PERCOCET 5MG/325MG TAB PO PRN ×6 (01:53→23:55)
[2021-11-24] MEDS: ASPIRIN 81MG CHEW TABLET PO SCH (07:32)
[2021-11-24] MEDS: QUEtiapine FUMARATE 25 MG TAB PO SCH ×2 (07:34→20:01)
[2021-11-24] MEDS: DICLOFENAC EPOLAMINE 1.3% PATCH TOP SCH ×2 (07:34→20:01)
[2021-11-24] MEDS: RAMELTEON 8 MG TAB (ROZEREM) PO PRN (20:01)
[2021-11-24] MEDS: ROSUVASTATIN 10 MG TAB (CRESTOR) PO SCH (20:01)
[2021-11-25] MEDS: PERCOCET 5MG/325MG TAB PO PRN ×5 (04:05→20:55)
[2021-11-25] MEDS: ALPRAZolam 0.25 MG TAB PO PRN ×5 (04:05→20:55)
[2021-11-25] MEDS: SENOKOT S TAB PO PRN ×3 (04:07→21:09)
[2021-11-25 04:23] VITALS: BP 161/85
[2021-11-25] MEDS: ASPIRIN 81MG CHEW TABLET PO SCH (08:26)
[2021-11-25] MEDS: QUEtiapine FUMARATE 25 MG TAB PO SCH ×2 (08:26→20:54)
[2021-11-25] MEDS: DICLOFENAC EPOLAMINE 1.3% PATCH TOP SCH ×2 (08:27→20:56)
[2021-11-25] MEDS ORDERED: POLYVINYL ALCOHOL OPHTH SOLN 15ML (LIQUITEARS) OU PRN (14:00)
[2021-11-25] MEDS: ROSUVASTATIN 10 MG TAB (CRESTOR) PO SCH (20:54)
[2021-11-25] MEDS: RAMELTEON 8 MG TAB (ROZEREM) PO PRN (20:55)
[2021-11-26] MEDS: PERCOCET 5MG/325MG TAB PO PRN ×6 (00:59→21:36)
[2021-11-26] MEDS: ALPRAZolam 0.25 MG TAB PO PRN ×6 (00:59→21:35)
[2021-11-26 05:03] VITALS: BP 145/77
[2021-11-26] MEDS: DICLOFENAC EPOLAMINE 1.3% PATCH TOP SCH ×2 (09:00→21:00)
[2021-11-26] MEDS: ASPIRIN 81MG CHEW TABLET PO SCH (09:23)
[2021-11-26] MEDS: QUEtiapine FUMARATE 25 MG TAB PO SCH ×2 (09:23→21:36)
[2021-11-26] MEDS: ROSUVASTATIN 10 MG TAB (CRESTOR) PO SCH (21:36)
[2021-11-27] MEDS: ALPRAZolam 0.25 MG TAB PO PRN ×5 (02:29→21:21)
[2021-11-27] MEDS: PERCOCET 5MG/325MG TAB PO PRN ×5 (02:30→21:21)
[2021-11-27 06:00] VITALS: BP 139/76
[2021-11-27] MEDS: QUEtiapine FUMARATE 25 MG TAB PO SCH ×2 (08:43→21:20)
[2021-11-27] MEDS: ASPIRIN 81MG CHEW TABLET PO SCH (08:43)
[2021-11-27] MEDS: DICLOFENAC EPOLAMINE 1.3% PATCH TOP SCH ×2 (09:00→21:00)
[2021-11-27] MEDS: SENOKOT S TAB PO PRN (17:37)
[2021-11-27] MEDS: RAMELTEON 8 MG TAB (ROZEREM) PO PRN (21:20)
[2021-11-27] MEDS: ROSUVASTATIN 10 MG TAB (CRESTOR) PO SCH (21:20)
[2021-11-28] MEDS: PERCOCET 5MG/325MG TAB PO PRN ×5 (01:57→21:00)
[2021-11-28] MEDS: ALPRAZolam 0.25 MG TAB PO PRN ×5 (01:57→20:59)
[2021-11-28] MEDS: DICLOFENAC EPOLAMINE 1.3% PATCH TOP SCH ×2 (07:44→21:01)
[2021-11-28] MEDS: ASPIRIN 81MG CHEW TABLET PO SCH (07:48)
[2021-11-28] MEDS: QUEtiapine FUMARATE 25 MG TAB PO SCH ×2 (07:49→21:00)
[2021-11-28] MEDS: SENOKOT S TAB PO PRN (21:00)
[2021-11-28] MEDS: RAMELTEON 8 MG TAB (ROZEREM) PO PRN (21:00)
[2021-11-28] MEDS: ROSUVASTATIN 10 MG TAB (CRESTOR) PO SCH (21:01)
[2021-11-29] MEDS: PERCOCET 5MG/325MG TAB PO PRN ×6 (01:01→21:58)
[2021-11-29] MEDS: ALPRAZolam 0.25 MG TAB PO PRN ×6 (01:02→21:58)
[2021-11-29] MEDS: DICLOFENAC EPOLAMINE 1.3% PATCH TOP SCH ×2 (09:00→21:00)
[2021-11-29] MEDS: ASPIRIN 81MG CHEW TABLET PO SCH (09:15)
[2021-11-29] MEDS: QUEtiapine FUMARATE 25 MG TAB PO SCH ×2 (09:16→21:58)
[2021-11-29] MEDS: ROSUVASTATIN 10 MG TAB (CRESTOR) PO SCH (21:57)
[2021-11-29] MEDS: RAMELTEON 8 MG TAB (ROZEREM) PO PRN (21:58)
[2021-11-30] MEDS: ALPRAZolam 0.25 MG TAB PO PRN ×6 (01:57→22:06)
[2021-11-30] MEDS: PERCOCET 5MG/325MG TAB PO PRN ×6 (01:57→22:07)
[2021-11-30 06:00] VITALS: BP 150/78
[2021-11-30] MEDS: DICLOFENAC EPOLAMINE 1.3% PATCH TOP SCH ×2 (09:00→21:00)
[2021-11-30] MEDS: ASPIRIN 81MG CHEW TABLET PO SCH (10:08)
[2021-11-30] MEDS: QUEtiapine FUMARATE 25 MG TAB PO SCH ×2 (10:08→22:05)
[2021-11-30] MEDS: RAMELTEON 8 MG TAB (ROZEREM) PO PRN (22:05)
[2021-11-30] MEDS: ROSUVASTATIN 10 MG TAB (CRESTOR) PO SCH (22:06)
[2021-12-01] MEDS: PERCOCET 5MG/325MG TAB PO PRN ×5 (04:07→21:51)
[2021-12-01] MEDS: ALPRAZolam 0.25 MG TAB PO PRN ×5 (04:07→21:51)
[2021-12-01] MEDS: ASPIRIN 81MG CHEW TABLET PO SCH (08:12)
[2021-12-01] MEDS: QUEtiapine FUMARATE 25 MG TAB PO SCH ×2 (08:12→21:50)
[2021-12-01] MEDS: DICLOFENAC EPOLAMINE 1.3% PATCH TOP SCH ×2 (09:00→21:00)
[2021-12-01] MEDS: RAMELTEON 8 MG TAB (ROZEREM) PO PRN (21:50)
[2021-12-01] MEDS: ROSUVASTATIN 10 MG TAB (CRESTOR) PO SCH (21:50)
[2021-12-02] MEDS: ALPRAZolam 0.25 MG TAB PO PRN ×5 (04:31→21:21)
[2021-12-02] MEDS: PERCOCET 5MG/325MG TAB PO PRN ×5 (04:32→21:21)
[2021-12-02] MEDS: QUEtiapine FUMARATE 25 MG TAB PO SCH ×2 (08:40→21:19)
[2021-12-02] MEDS: ASPIRIN 81MG CHEW TABLET PO SCH (08:40)
[2021-12-02] MEDS: DICLOFENAC EPOLAMINE 1.3% PATCH TOP SCH ×2 (09:00→21:00)
[2021-12-02] MEDS: SENOKOT S TAB PO PRN (12:57)
[2021-12-02] MEDS: RAMELTEON 8 MG TAB (ROZEREM) PO PRN (21:19)
[2021-12-02] MEDS: ROSUVASTATIN 10 MG TAB (CRESTOR) PO SCH (21:20)
[2021-12-03] MEDS: ALPRAZolam 0.25 MG TAB PO PRN ×6 (02:45→23:27)
[2021-12-03] MEDS: PERCOCET 5MG/325MG TAB PO PRN ×6 (02:46→23:27)
[2021-12-03] MEDS: DICLOFENAC EPOLAMINE 1.3% PATCH TOP SCH ×2 (09:00→22:14)
[2021-12-03] MEDS: ASPIRIN 81MG CHEW TABLET PO SCH (10:44)
[2021-12-03] MEDS: QUEtiapine FUMARATE 25 MG TAB PO SCH ×2 (10:44→22:14)
[2021-12-03] MEDS: MIRALAX *UNIT DOSE* 17GM PACKET PO PRN (10:48)
[2021-12-03] MEDS: RAMELTEON 8 MG TAB (ROZEREM) PO PRN (22:14)
[2021-12-03] MEDS: ROSUVASTATIN 10 MG TAB (CRESTOR) PO SCH (22:14)
[2021-12-04] MEDS: ALPRAZolam 0.25 MG TAB PO PRN ×5 (03:27→20:14)
[2021-12-04] MEDS: PERCOCET 5MG/325MG TAB PO PRN ×5 (03:28→20:16)
[2021-12-04 07:37] VITALS: BP 146/79
[2021-12-04] MEDS: DICLOFENAC EPOLAMINE 1.3% PATCH TOP SCH ×2 (09:00→21:00)
[2021-12-04] MEDS: ASPIRIN 81MG CHEW TABLET PO SCH (10:00)
[2021-12-04] MEDS: QUEtiapine FUMARATE 25 MG TAB PO SCH ×2 (10:00→20:13)
[2021-12-04] MEDS: MIRALAX *UNIT DOSE* 17GM PACKET PO PRN (16:11)
[2021-12-04] MEDS: RAMELTEON 8 MG TAB (ROZEREM) PO PRN (20:13)
[2021-12-04] MEDS: ROSUVASTATIN 10 MG TAB (CRESTOR) PO SCH (20:13)
[2021-12-05] MEDS: ALPRAZolam 0.25 MG TAB PO PRN ×6 (00:21→20:56)
[2021-12-05] MEDS: PERCOCET 5MG/325MG TAB PO PRN ×6 (00:23→20:58)
[2021-12-05 06:00] VITALS: BP 126/71
[2021-12-05] MEDS: ASPIRIN 81MG CHEW TABLET PO SCH (08:26)
[2021-12-05] MEDS: QUEtiapine FUMARATE 25 MG TAB PO SCH ×2 (08:27→20:55)
[2021-12-05] MEDS: DICLOFENAC EPOLAMINE 1.3% PATCH TOP SCH ×2 (09:00→20:56)
[2021-12-05] MEDS: ROSUVASTATIN 10 MG TAB (CRESTOR) PO SCH (21:01)
[2021-12-06] MEDS: ALPRAZolam 0.25 MG TAB PO PRN ×4 (07:35→19:55)
[2021-12-06] MEDS: ASPIRIN 81MG CHEW TABLET PO SCH (07:35)
[2021-12-06] MEDS: QUEtiapine FUMARATE 25 MG TAB PO SCH ×2 (07:35→19:55)
[2021-12-06] MEDS: PERCOCET 5MG/325MG TAB PO PRN ×4 (07:36→19:56)
[2021-12-06] MEDS: DICLOFENAC EPOLAMINE 1.3% PATCH TOP SCH ×2 (09:00→21:00)
[2021-12-06 19:46] VITALS: BP 136/49
[2021-12-06] MEDS: ROSUVASTATIN 10 MG TAB (CRESTOR) PO SCH (19:55)
[2021-12-07] MEDS: RAMELTEON 8 MG TAB (ROZEREM) PO PRN ×2 (00:07→21:58)
[2021-12-07] MEDS ORDERED: DICLOFENAC EPOLAMINE 1.3% PATCH TOP PRN (02:00)
[2021-12-07 04:00] VITALS: BP 113/70
[2021-12-07] MEDS: ALPRAZolam 0.25 MG TAB PO PRN ×6 (04:54→21:58)
[2021-12-07] MEDS: PERCOCET 5MG/325MG TAB PO PRN ×6 (04:55→21:57)
[2021-12-07] MEDS: QUEtiapine FUMARATE 25 MG TAB PO SCH ×2 (09:33→21:58)
[2021-12-07] MEDS: ASPIRIN 81MG CHEW TABLET PO SCH (09:33)
[2021-12-07] MEDS: ROSUVASTATIN 10 MG TAB (CRESTOR) PO SCH (21:57)
[2021-12-08] MEDS: ALPRAZolam 0.25 MG TAB PO PRN ×6 (02:04→22:35)
[2021-12-08] MEDS: PERCOCET 5MG/325MG TAB PO PRN ×6 (02:05→22:35)
[2021-12-08 06:00] VITALS: BP 153/91
[2021-12-08] MEDS: ASPIRIN 81MG CHEW TABLET PO SCH (10:22)
[2021-12-08] MEDS: QUEtiapine FUMARATE 25 MG TAB PO SCH ×2 (10:23→20:51)
[2021-12-08] MEDS: SENOKOT S TAB PO PRN (18:37)
[2021-12-08] MEDS: ROSUVASTATIN 10 MG TAB (CRESTOR) PO SCH (20:51)
[2021-12-09] MEDS: ALPRAZolam 0.25 MG TAB PO PRN ×5 (03:21→19:59)
[2021-12-09] MEDS: PERCOCET 5MG/325MG TAB PO PRN ×5 (03:22→19:59)
[2021-12-09] MEDS: QUEtiapine FUMARATE 25 MG TAB PO SCH ×2 (07:39→22:13)
[2021-12-09] MEDS: ASPIRIN 81MG CHEW TABLET PO SCH (07:40)
[2021-12-09] MEDS: ROSUVASTATIN 10 MG TAB (CRESTOR) PO SCH (22:13)
[2021-12-09] MEDS: RAMELTEON 8 MG TAB (ROZEREM) PO PRN (22:13)
[2021-12-10] MEDS: PERCOCET 5MG/325MG TAB PO PRN ×6 (00:07→21:37)
[2021-12-10] MEDS: ALPRAZolam 0.25 MG TAB PO PRN ×6 (00:07→21:37)
[2021-12-10 06:00] VITALS: BP 143/80
[2021-12-10] MEDS: QUEtiapine FUMARATE 25 MG TAB PO SCH ×2 (08:51→21:37)
[2021-12-10] MEDS: ASPIRIN 81MG CHEW TABLET PO SCH (08:51)
[2021-12-10] MEDS: ROSUVASTATIN 10 MG TAB (CRESTOR) PO SCH (21:37)
[2021-12-10] MEDS: RAMELTEON 8 MG TAB (ROZEREM) PO PRN (21:38)
[2021-12-11] MEDS: ALPRAZolam 0.25 MG TAB PO PRN ×6 (01:52→22:19)
[2021-12-11] MEDS: PERCOCET 5MG/325MG TAB PO PRN ×6 (01:53→22:19)
[2021-12-11] MEDS: ACETAMINOPHEN TAB 650MG DOSE (2X325MG) PO PRN (04:12)
[2021-12-11 05:59] VITALS: BP 140/77
[2021-12-11] MEDS: QUEtiapine FUMARATE 25 MG TAB PO SCH ×2 (09:55→22:19)
[2021-12-11] MEDS: ASPIRIN 81MG CHEW TABLET PO SCH (09:59)
[2021-12-11] MEDS: HEPARIN SOD (PORCINE) 5000UNITS/ML 1ML VIAL/SYRINGE SQ SCH ×2 (14:00→22:00)
[2021-12-11] MEDS: RAMELTEON 8 MG TAB (ROZEREM) PO PRN (22:19)
[2021-12-11] MEDS: ROSUVASTATIN 10 MG TAB (CRESTOR) PO SCH (22:20)
[2021-12-12] MEDS: ALPRAZolam 0.25 MG TAB PO PRN ×5 (04:18→22:19)
[2021-12-12] MEDS: PERCOCET 5MG/325MG TAB PO PRN ×5 (04:19→22:19)
[2021-12-12] MEDS: HEPARIN SOD (PORCINE) 5000UNITS/ML 1ML VIAL/SYRINGE SQ SCH ×3 (05:00→22:19)
[2021-12-12] MEDS: QUEtiapine FUMARATE 25 MG TAB PO SCH ×2 (09:13→22:19)
[2021-12-12] MEDS: ASPIRIN 81MG CHEW TABLET PO SCH (09:13)
[2021-12-12] MEDS: ROSUVASTATIN 10 MG TAB (CRESTOR) PO SCH (22:19)
[2021-12-12] MEDS: RAMELTEON 8 MG TAB (ROZEREM) PO PRN (22:19)
[2021-12-13] MEDS: ALPRAZolam 0.25 MG TAB PO PRN ×5 (02:52→20:17)
[2021-12-13] MEDS: PERCOCET 5MG/325MG TAB PO PRN ×5 (02:53→20:13)
[2021-12-13] MEDS: HEPARIN SOD (PORCINE) 5000UNITS/ML 1ML VIAL/SYRINGE SQ SCH ×3 (07:00→21:07)
[2021-12-13] MEDS: ASPIRIN 81MG CHEW TABLET PO SCH (09:14)
[2021-12-13] MEDS: QUEtiapine FUMARATE 25 MG TAB PO SCH ×2 (09:15→20:13)
[2021-12-13] MEDS: ROSUVASTATIN 10 MG TAB (CRESTOR) PO SCH (20:17)
[2021-12-13] MEDS: RAMELTEON 8 MG TAB (ROZEREM) PO PRN (20:19)
[2021-12-13] MEDS: SENOKOT S TAB PO PRN (21:11)
[2021-12-14] MEDS: ALPRAZolam 0.25 MG TAB PO PRN ×3 (02:37→21:34)
[2021-12-14] MEDS: PERCOCET 5MG/325MG TAB PO PRN ×5 (02:39→21:34)
[2021-12-14] MEDS: HEPARIN SOD (PORCINE) 5000UNITS/ML 1ML VIAL/SYRINGE SQ SCH ×3 (06:00→21:38)
[2021-12-14] MEDS: ASPIRIN 81MG CHEW TABLET PO SCH (09:07)
[2021-12-14] MEDS: QUEtiapine FUMARATE 25 MG TAB PO SCH ×2 (09:08→21:33)
[2021-12-14] MEDS: SENOKOT S TAB PO PRN (12:40)
[2021-12-14] MEDS: MIRALAX *UNIT DOSE* 17GM PACKET PO PRN (16:59)
[2021-12-14] MEDS: RAMELTEON 8 MG TAB (ROZEREM) PO PRN (21:32)
[2021-12-14] MEDS: ROSUVASTATIN 10 MG TAB (CRESTOR) PO SCH (21:33)
[2021-12-15] MEDS: PERCOCET 5MG/325MG TAB PO PRN ×4 (03:54→22:37)
[2021-12-15] MEDS: ALPRAZolam 0.25 MG TAB PO PRN ×4 (03:54→22:36)
[2021-12-15] MEDS: SENOKOT S TAB PO PRN (03:56)
[2021-12-15] MEDS: HEPARIN SOD (PORCINE) 5000UNITS/ML 1ML VIAL/SYRINGE SQ SCH ×3 (06:30→22:40)
[2021-12-15] MEDS: ASPIRIN 81MG CHEW TABLET PO SCH (10:03)
[2021-12-15] MEDS: QUEtiapine FUMARATE 25 MG TAB PO SCH ×2 (10:04→22:36)
[2021-12-15] MEDS: ROSUVASTATIN 10 MG TAB (CRESTOR) PO SCH (22:36)
[2021-12-15] MEDS: RAMELTEON 8 MG TAB (ROZEREM) PO PRN (22:36)
[2021-12-16] MEDS: PERCOCET 5MG/325MG TAB PO PRN ×6 (02:58→23:59)
[2021-12-16] MEDS: ALPRAZolam 0.25 MG TAB PO PRN ×6 (02:59→23:59)
[2021-12-16 06:00] VITALS: BP 142/81
[2021-12-16] MEDS: HEPARIN SOD (PORCINE) 5000UNITS/ML 1ML VIAL/SYRINGE SQ SCH ×3 (06:56→21:34)
[2021-12-16] MEDS: QUEtiapine FUMARATE 25 MG TAB PO SCH ×2 (11:21→19:58)
[2021-12-16] MEDS: ASPIRIN 81MG CHEW TABLET PO SCH (11:21)
[2021-12-16] MEDS: ROSUVASTATIN 10 MG TAB (CRESTOR) PO SCH (19:58)
[2021-12-16] MEDS: RAMELTEON 8 MG TAB (ROZEREM) PO PRN (21:34)
[2021-12-17] MEDS: ALPRAZolam 0.25 MG TAB PO PRN ×5 (04:06→21:02)
[2021-12-17] MEDS: PERCOCET 5MG/325MG TAB PO PRN ×5 (04:06→21:02)
[2021-12-17] MEDS: HEPARIN SOD (PORCINE) 5000UNITS/ML 1ML VIAL/SYRINGE SQ SCH ×4 (05:46→21:09)
[2021-12-17 05:51] VITALS: BP 138/80
[2021-12-17] MEDS: QUEtiapine FUMARATE 25 MG TAB PO SCH ×2 (08:21→21:01)
[2021-12-17] MEDS: ASPIRIN 81MG CHEW TABLET PO SCH (08:21)
[2021-12-17] MEDS: RAMELTEON 8 MG TAB (ROZEREM) PO PRN (21:01)
[2021-12-17] MEDS: ROSUVASTATIN 10 MG TAB (CRESTOR) PO SCH (21:02)
[2021-12-18] MEDS: ALPRAZolam 0.25 MG TAB PO PRN ×6 (01:15→22:58)
[2021-12-18] MEDS: PERCOCET 5MG/325MG TAB PO PRN ×6 (01:15→22:59)
[2021-12-18 03:46] VITALS: BP 140/76
[2021-12-18] MEDS: HEPARIN SOD (PORCINE) 5000UNITS/ML 1ML VIAL/SYRINGE SQ SCH ×3 (05:46→23:00)
[2021-12-18] MEDS: QUEtiapine FUMARATE 25 MG TAB PO SCH ×2 (10:15→22:57)
[2021-12-18] MEDS: ASPIRIN 81MG CHEW TABLET PO SCH (10:15)
[2021-12-18] MEDS: RAMELTEON 8 MG TAB (ROZEREM) PO PRN (22:57)
[2021-12-18] MEDS: ROSUVASTATIN 10 MG TAB (CRESTOR) PO SCH (22:57)
[2021-12-18] MEDS: SENOKOT S TAB PO PRN (22:57)
[2021-12-19] MEDS: ALPRAZolam 0.25 MG TAB PO PRN ×5 (03:19→22:11)
[2021-12-19] MEDS: PERCOCET 5MG/325MG TAB PO PRN ×5 (03:20→22:11)
[2021-12-19 06:00] VITALS: BP 137/70
[2021-12-19] MEDS: HEPARIN SOD (PORCINE) 5000UNITS/ML 1ML VIAL/SYRINGE SQ SCH ×3 (06:00→22:00)
[2021-12-19] MEDS: QUEtiapine FUMARATE 25 MG TAB PO SCH ×2 (10:44→22:10)
[2021-12-19] MEDS: ASPIRIN 81MG CHEW TABLET PO SCH (10:44)
[2021-12-19] MEDS: RAMELTEON 8 MG TAB (ROZEREM) PO PRN (22:10)
[2021-12-19] MEDS: ROSUVASTATIN 10 MG TAB (CRESTOR) PO SCH (22:10)
[2021-12-20] MEDS: PERCOCET 5MG/325MG TAB PO PRN ×6 (02:18→22:47)
[2021-12-20] MEDS: ALPRAZolam 0.25 MG TAB PO PRN ×6 (02:18→22:46)
[2021-12-20] MEDS: HEPARIN SOD (PORCINE) 5000UNITS/ML 1ML VIAL/SYRINGE SQ SCH ×4 (06:00→22:49)
[2021-12-20] MEDS: ASPIRIN 81MG CHEW TABLET PO SCH (10:21)
[2021-12-20] MEDS: QUEtiapine FUMARATE 25 MG TAB PO SCH ×2 (10:22→22:46)
[2021-12-20] MEDS: RAMELTEON 8 MG TAB (ROZEREM) PO PRN (22:45)
[2021-12-20] MEDS: ROSUVASTATIN 10 MG TAB (CRESTOR) PO SCH (22:46)
[2021-12-21] MEDS: ALPRAZolam 0.25 MG TAB PO PRN ×5 (03:32→20:52)
[2021-12-21] MEDS: PERCOCET 5MG/325MG TAB PO PRN ×5 (03:33→20:53)
[2021-12-21 05:30] VITALS: BP 156/115
[2021-12-21] MEDS: HEPARIN SOD (PORCINE) 5000UNITS/ML 1ML VIAL/SYRINGE SQ SCH ×3 (05:32→20:53)
[2021-12-21 07:30] VITALS: BP 154/96
[2021-12-21] MEDS: ASPIRIN 81MG CHEW TABLET PO SCH (07:33)
[2021-12-21] MEDS: QUEtiapine FUMARATE 25 MG TAB PO SCH ×2 (07:34→20:52)
[2021-12-21] MEDS: RAMELTEON 8 MG TAB (ROZEREM) PO PRN (20:52)
[2021-12-21] MEDS: ROSUVASTATIN 10 MG TAB (CRESTOR) PO SCH (20:53)
[2021-12-22] MEDS: ALPRAZolam 0.25 MG TAB PO PRN ×6 (01:08→23:47)
[2021-12-22] MEDS: PERCOCET 5MG/325MG TAB PO PRN ×6 (01:08→23:47)
[2021-12-22] MEDS: HEPARIN SOD (PORCINE) 5000UNITS/ML 1ML VIAL/SYRINGE SQ SCH ×3 (05:39→21:32)
[2021-12-22] MEDS: QUEtiapine FUMARATE 25 MG TAB PO SCH ×2 (09:10→19:52)
[2021-12-22] MEDS: ASPIRIN 81MG CHEW TABLET PO SCH (09:10)
[2021-12-22 09:13] VITALS: BP 135/69
[2021-12-22] MEDS: ROSUVASTATIN 10 MG TAB (CRESTOR) PO SCH (19:51)
[2021-12-22] MEDS: RAMELTEON 8 MG TAB (ROZEREM) PO PRN (23:47)
[2021-12-23 01:52] VITALS: BP 137/69
[2021-12-23] MEDS: ALPRAZolam 0.25 MG TAB PO PRN ×5 (03:49→21:59)
[2021-12-23] MEDS: PERCOCET 5MG/325MG TAB PO PRN ×5 (03:50→21:59)
[2021-12-23] MEDS: HEPARIN SOD (PORCINE) 5000UNITS/ML 1ML VIAL/SYRINGE SQ SCH ×3 (05:21→22:00)
[2021-12-23] MEDS: QUEtiapine FUMARATE 25 MG TAB PO SCH ×2 (09:00→21:58)
[2021-12-23] MEDS: ASPIRIN 81MG CHEW TABLET PO SCH (09:01)
[2021-12-23] MEDS: ROSUVASTATIN 10 MG TAB (CRESTOR) PO SCH (21:58)
[2021-12-23] MEDS: RAMELTEON 8 MG TAB (ROZEREM) PO PRN (21:58)
[2021-12-24] MEDS: ALPRAZolam 0.25 MG TAB PO PRN ×5 (02:22→19:12)
[2021-12-24] MEDS: PERCOCET 5MG/325MG TAB PO PRN ×5 (02:22→19:11)
[2021-12-24] MEDS: HEPARIN SOD (PORCINE) 5000UNITS/ML 1ML VIAL/SYRINGE SQ SCH ×3 (05:07→21:01)
[2021-12-24 05:17] VITALS: BP 161/69
[2021-12-24] MEDS: QUEtiapine FUMARATE 25 MG TAB PO SCH ×2 (09:03→19:11)
[2021-12-24] MEDS: ASPIRIN 81MG CHEW TABLET PO SCH (09:03)
[2021-12-24] MEDS: RAMELTEON 8 MG TAB (ROZEREM) PO PRN (19:11)
[2021-12-24] MEDS: ROSUVASTATIN 10 MG TAB (CRESTOR) PO SCH (19:11)
[2021-12-25] MEDS: PERCOCET 5MG/325MG TAB PO PRN ×6 (00:15→20:43)
[2021-12-25] MEDS: ALPRAZolam 0.25 MG TAB PO PRN ×6 (00:18→20:44)
[2021-12-25 04:16] VITALS: BP 151/84
[2021-12-25] MEDS: HEPARIN SOD (PORCINE) 5000UNITS/ML 1ML VIAL/SYRINGE SQ SCH ×3 (06:00→20:46)
[2021-12-25] MEDS: ASPIRIN 81MG CHEW TABLET PO SCH (08:16)
[2021-12-25] MEDS: QUEtiapine FUMARATE 25 MG TAB PO SCH ×2 (08:19→20:44)
[2021-12-25] MEDS ORDERED: COVID-19 VAC, BV (MODERNA)/PF 50 MCG/0.5 ML VIAL (EUA) IM.IMMUN ONE (11:15)
[2021-12-25] MEDS: ROSUVASTATIN 10 MG TAB (CRESTOR) PO SCH (20:44)
[2021-12-25] MEDS: RAMELTEON 8 MG TAB (ROZEREM) PO PRN (20:44)
[2021-12-26] MEDS: ALPRAZolam 0.25 MG TAB PO PRN ×6 (01:40→21:44)
[2021-12-26] MEDS: PERCOCET 5MG/325MG TAB PO PRN ×6 (01:40→21:43)
[2021-12-26] MEDS: HEPARIN SOD (PORCINE) 5000UNITS/ML 1ML VIAL/SYRINGE SQ SCH ×3 (05:22→21:44)
[2021-12-26 05:31] VITALS: BP 131/79
[2021-12-26] MEDS: QUEtiapine FUMARATE 25 MG TAB PO SCH ×2 (09:32→21:44)
[2021-12-26] MEDS: ASPIRIN 81MG CHEW TABLET PO SCH (09:32)
[2021-12-26] MEDS ORDERED: COVID-19 VACC, MRNA(PFIZER)/PF 30MCG 0.3ML VIAL (EUA) IM.IMMUN ONE (12:00)
[2021-12-26] MEDS: ROSUVASTATIN 10 MG TAB (CRESTOR) PO SCH (21:43)
[2021-12-26] MEDS: RAMELTEON 8 MG TAB (ROZEREM) PO PRN (21:44)
[2021-12-26] MEDS: SENOKOT S TAB PO PRN (21:48)
[2021-12-27] MEDS: ALPRAZolam 0.25 MG TAB PO PRN ×6 (01:48→22:33)
[2021-12-27] MEDS: PERCOCET 5MG/325MG TAB PO PRN ×6 (01:48→22:34)
[2021-12-27] MEDS: HEPARIN SOD (PORCINE) 5000UNITS/ML 1ML VIAL/SYRINGE SQ SCH ×3 (05:50→22:00)
[2021-12-27 10:00] VITALS: BP 151/82
[2021-12-27] MEDS: ASPIRIN 81MG CHEW TABLET PO SCH (10:11)
[2021-12-27] MEDS: QUEtiapine FUMARATE 25 MG TAB PO SCH ×2 (10:11→22:33)
[2021-12-27] MEDS: RAMELTEON 8 MG TAB (ROZEREM) PO PRN (22:33)
[2021-12-27] MEDS: ROSUVASTATIN 10 MG TAB (CRESTOR) PO SCH (22:33)
[2021-12-28] MEDS: ALPRAZolam 0.25 MG TAB PO PRN ×6 (02:39→22:52)
[2021-12-28] MEDS: PERCOCET 5MG/325MG TAB PO PRN ×6 (02:39→22:53)
[2021-12-28 06:00] VITALS: BP 150/81
[2021-12-28] MEDS: HEPARIN SOD (PORCINE) 5000UNITS/ML 1ML VIAL/SYRINGE SQ SCH ×3 (06:00→22:00)
[2021-12-28] MEDS: QUEtiapine FUMARATE 25 MG TAB PO SCH ×2 (10:45→22:51)
[2021-12-28] MEDS: ASPIRIN 81MG CHEW TABLET PO SCH (10:46)
[2021-12-28] MEDS: RAMELTEON 8 MG TAB (ROZEREM) PO PRN (22:51)
[2021-12-28] MEDS: ROSUVASTATIN 10 MG TAB (CRESTOR) PO SCH (22:52)
[2021-12-29] MEDS: ALPRAZolam 0.25 MG TAB PO PRN ×5 (03:36→21:15)
[2021-12-29] MEDS: PERCOCET 5MG/325MG TAB PO PRN ×5 (03:37→21:16)
[2021-12-29] MEDS: HEPARIN SOD (PORCINE) 5000UNITS/ML 1ML VIAL/SYRINGE SQ SCH ×3 (05:07→21:17)
[2021-12-29] MEDS: QUEtiapine FUMARATE 25 MG TAB PO SCH ×2 (08:43→21:15)
[2021-12-29] MEDS: ASPIRIN 81MG CHEW TABLET PO SCH (08:43)
[2021-12-29] MEDS: RAMELTEON 8 MG TAB (ROZEREM) PO PRN (21:15)
[2021-12-29] MEDS: ROSUVASTATIN 10 MG TAB (CRESTOR) PO SCH (21:16)
[2021-12-30] MEDS: ALPRAZolam 0.25 MG TAB PO PRN ×6 (01:31→22:49)
[2021-12-30] MEDS: PERCOCET 5MG/325MG TAB PO PRN ×6 (01:33→22:48)
[2021-12-30] MEDS: POLYVINYL ALCOHOL OPHTH SOLN 15ML (LIQUITEARS) OU PRN (02:00)
[2021-12-30] MEDS: HEPARIN SOD (PORCINE) 5000UNITS/ML 1ML VIAL/SYRINGE SQ SCH ×3 (05:10→22:00)
[2021-12-30 06:00] VITALS: BP 150/83
[2021-12-30] MEDS: ASPIRIN 81MG CHEW TABLET PO SCH (09:59)
[2021-12-30] MEDS: QUEtiapine FUMARATE 25 MG TAB PO SCH ×2 (09:59→22:49)
[2021-12-30] MEDS: ROSUVASTATIN 10 MG TAB (CRESTOR) PO SCH (22:49)
[2021-12-31] MEDS: POLYVINYL ALCOHOL OPHTH SOLN 15ML (LIQUITEARS) OU PRN (00:54)
[2021-12-31] MEDS: PERCOCET 5MG/325MG TAB PO PRN ×6 (02:46→22:59)
[2021-12-31] MEDS: ALPRAZolam 0.25 MG TAB PO PRN ×6 (02:46→22:58)
[2021-12-31] MEDS: HEPARIN SOD (PORCINE) 5000UNITS/ML 1ML VIAL/SYRINGE SQ SCH ×3 (05:05→20:12)
[2021-12-31 06:00] VITALS: BP 157/85
[2021-12-31] MEDS: ASPIRIN 81MG CHEW TABLET PO SCH (09:05)
[2021-12-31] MEDS: QUEtiapine FUMARATE 25 MG TAB PO SCH ×2 (09:05→20:09)
[2021-12-31] MEDS ORDERED: FLUBLOK(EGG FREE)(QUAD)INFLUENZA VACC 0.5ML SYRINGE 18YRS & OLDER IM.IMMUN ONE (12:35)
[2021-12-31] MEDS: ROSUVASTATIN 10 MG TAB (CRESTOR) PO SCH (20:09)
[2022-01-01] MEDS: ALPRAZolam 0.25 MG TAB PO PRN ×6 (03:06→23:05)
[2022-01-01] MEDS: PERCOCET 5MG/325MG TAB PO PRN ×6 (03:07→23:05)
[2022-01-01 03:10] VITALS: BP 157/78
[2022-01-01] MEDS: HEPARIN SOD (PORCINE) 5000UNITS/ML 1ML VIAL/SYRINGE SQ SCH ×3 (06:00→22:00)
[2022-01-01] MEDS: QUEtiapine FUMARATE 25 MG TAB PO SCH ×2 (08:21→21:54)
[2022-01-01] MEDS: ASPIRIN 81MG CHEW TABLET PO SCH (08:21)
[2022-01-01] MEDS: SENOKOT S TAB PO PRN (21:55)
[2022-01-01] MEDS: ROSUVASTATIN 10 MG TAB (CRESTOR) PO SCH (21:55)
[2022-01-02] MEDS: ALPRAZolam 0.25 MG TAB PO PRN ×5 (03:13→20:59)
[2022-01-02] MEDS: PERCOCET 5MG/325MG TAB PO PRN ×5 (03:13→21:00)
[2022-01-02] MEDS: HEPARIN SOD (PORCINE) 5000UNITS/ML 1ML VIAL/SYRINGE SQ SCH ×3 (04:21→22:00)
[2022-01-02 05:35] VITALS: BP 155/63
[2022-01-02] MEDS: QUEtiapine FUMARATE 25 MG TAB PO SCH ×2 (09:00→20:59)
[2022-01-02] MEDS: ASPIRIN 81MG CHEW TABLET PO SCH (09:00)
[2022-01-02] MEDS: RAMELTEON 8 MG TAB (ROZEREM) PO PRN (20:59)
[2022-01-02] MEDS: ROSUVASTATIN 10 MG TAB (CRESTOR) PO SCH (20:59)
[2022-01-03] MEDS: ALPRAZolam 0.25 MG TAB PO PRN ×5 (01:16→20:05)
[2022-01-03] MEDS: PERCOCET 5MG/325MG TAB PO PRN ×5 (01:18→20:05)
[2022-01-03] MEDS: HEPARIN SOD (PORCINE) 5000UNITS/ML 1ML VIAL/SYRINGE SQ SCH ×3 (04:57→20:14)
[2022-01-03 06:00] VITALS: BP 148/79
[2022-01-03] MEDS: QUEtiapine FUMARATE 25 MG TAB PO SCH ×2 (08:58→20:04)
[2022-01-03] MEDS: ASPIRIN 81MG CHEW TABLET PO SCH (09:01)
[2022-01-03] MEDS: RAMELTEON 8 MG TAB (ROZEREM) PO PRN (20:03)
[2022-01-03] MEDS: ROSUVASTATIN 10 MG TAB (CRESTOR) PO SCH (20:04)
[2022-01-04] MEDS: ALPRAZolam 0.25 MG TAB PO PRN ×6 (00:22→22:23)
[2022-01-04] MEDS: PERCOCET 5MG/325MG TAB PO PRN ×6 (00:23→22:23)
[2022-01-04 04:00] VITALS: BP 134/77
[2022-01-04] MEDS: HEPARIN SOD (PORCINE) 5000UNITS/ML 1ML VIAL/SYRINGE SQ SCH ×3 (05:15→22:00)
[2022-01-04] MEDS: ASPIRIN 81MG CHEW TABLET PO SCH (09:24)
[2022-01-04] MEDS: QUEtiapine FUMARATE 25 MG TAB PO SCH ×2 (09:24→22:23)
[2022-01-04] MEDS: MIRALAX *UNIT DOSE* 17GM PACKET PO PRN (13:54)
[2022-01-04] MEDS: ROSUVASTATIN 10 MG TAB (CRESTOR) PO SCH (22:24)
[2022-01-05] MEDS: PERCOCET 5MG/325MG TAB PO PRN ×6 (02:28→23:34)
[2022-01-05] MEDS: ALPRAZolam 0.25 MG TAB PO PRN ×6 (02:28→23:33)
[2022-01-05] MEDS: HEPARIN SOD (PORCINE) 5000UNITS/ML 1ML VIAL/SYRINGE SQ SCH ×3 (05:48→21:11)
[2022-01-05 06:00] VITALS: BP 146/82
[2022-01-05] MEDS: ASPIRIN 81MG CHEW TABLET PO SCH (08:31)
[2022-01-05] MEDS: QUEtiapine FUMARATE 25 MG TAB PO SCH ×2 (08:31→19:37)
[2022-01-05] MEDS: ROSUVASTATIN 10 MG TAB (CRESTOR) PO SCH (19:36)
[2022-01-05] MEDS: RAMELTEON 8 MG TAB (ROZEREM) PO PRN (23:33)
[2022-01-06] MEDS: ALPRAZolam 0.25 MG TAB PO PRN ×6 (03:40→23:55)
[2022-01-06] MEDS: PERCOCET 5MG/325MG TAB PO PRN ×6 (03:41→23:56)
[2022-01-06] MEDS: HEPARIN SOD (PORCINE) 5000UNITS/ML 1ML VIAL/SYRINGE SQ SCH ×3 (05:02→20:51)
[2022-01-06 06:22] VITALS: BP 135/92
[2022-01-06] MEDS: ASPIRIN 81MG CHEW TABLET PO SCH (08:03)
[2022-01-06] MEDS: QUEtiapine FUMARATE 25 MG TAB PO SCH ×2 (08:03→20:49)
[2022-01-06] MEDS: ROSUVASTATIN 10 MG TAB (CRESTOR) PO SCH (20:49)
[2022-01-07] MEDS: ALPRAZolam 0.25 MG TAB PO PRN ×5 (04:37→21:29)
[2022-01-07] MEDS: PERCOCET 5MG/325MG TAB PO PRN ×5 (04:37→21:29)
[2022-01-07 04:38] VITALS: BP 162/89
[2022-01-07] MEDS: SENOKOT S TAB PO PRN ×2 (04:43→21:30)
[2022-01-07] MEDS: HEPARIN SOD (PORCINE) 5000UNITS/ML 1ML VIAL/SYRINGE SQ SCH ×3 (06:00→22:00)
[2022-01-07] MEDS: QUEtiapine FUMARATE 25 MG TAB PO SCH ×2 (09:05→21:30)
[2022-01-07] MEDS: ASPIRIN 81MG CHEW TABLET PO SCH (09:07)
[2022-01-07] MEDS: ROSUVASTATIN 10 MG TAB (CRESTOR) PO SCH (21:30)
[2022-01-08] MEDS: HEPARIN SOD (PORCINE) 5000UNITS/ML 1ML VIAL/SYRINGE SQ SCH ×3 (06:00→21:21)
[2022-01-08] MEDS: ALPRAZolam 0.25 MG TAB PO PRN ×4 (06:14→20:10)
[2022-01-08] MEDS: PERCOCET 5MG/325MG TAB PO PRN ×4 (06:14→20:11)
[2022-01-08 06:31] VITALS: BP 162/91
[2022-01-08] MEDS: QUEtiapine FUMARATE 25 MG TAB PO SCH ×2 (08:02→20:09)
[2022-01-08] MEDS: ASPIRIN 81MG CHEW TABLET PO SCH (08:02)
[2022-01-08] MEDS: RAMELTEON 8 MG TAB (ROZEREM) PO PRN (20:10)
[2022-01-08] MEDS: ROSUVASTATIN 10 MG TAB (CRESTOR) PO SCH (20:11)
[2022-01-09] MEDS: ALPRAZolam 0.25 MG TAB PO PRN ×6 (00:08→22:04)
[2022-01-09] MEDS: PERCOCET 5MG/325MG TAB PO PRN ×6 (00:08→22:03)
[2022-01-09 04:12] VITALS: BP 108/67
[2022-01-09] MEDS: HEPARIN SOD (PORCINE) 5000UNITS/ML 1ML VIAL/SYRINGE SQ SCH ×3 (05:10→22:00)
[2022-01-09] MEDS: QUEtiapine FUMARATE 25 MG TAB PO SCH ×2 (08:24→22:04)
[2022-01-09] MEDS: ASPIRIN 81MG CHEW TABLET PO SCH (08:26)
[2022-01-09] MEDS: ROSUVASTATIN 10 MG TAB (CRESTOR) PO SCH (22:03)
[2022-01-09] MEDS: RAMELTEON 8 MG TAB (ROZEREM) PO PRN (22:04)
[2022-01-10] MEDS: ALPRAZolam 0.25 MG TAB PO PRN ×5 (05:06→21:27)
[2022-01-10] MEDS: HEPARIN SOD (PORCINE) 5000UNITS/ML 1ML VIAL/SYRINGE SQ SCH ×3 (05:07→22:00)
[2022-01-10] MEDS: PERCOCET 5MG/325MG TAB PO PRN ×5 (05:07→21:27)
[2022-01-10] MEDS: QUEtiapine FUMARATE 25 MG TAB PO SCH ×2 (08:59→21:27)
[2022-01-10] MEDS: ASPIRIN 81MG CHEW TABLET PO SCH (09:01)
[2022-01-10] MEDS: ROSUVASTATIN 10 MG TAB (CRESTOR) PO SCH (21:27)
[2022-01-11] MEDS: PERCOCET 5MG/325MG TAB PO PRN ×5 (02:36→21:27)
[2022-01-11] MEDS: ALPRAZolam 0.25 MG TAB PO PRN ×5 (02:36→21:27)
[2022-01-11 06:00] VITALS: BP 138/80
[2022-01-11] MEDS: HEPARIN SOD (PORCINE) 5000UNITS/ML 1ML VIAL/SYRINGE SQ SCH ×3 (06:00→22:00)
[2022-01-11] MEDS: ASPIRIN 81MG CHEW TABLET PO SCH (09:04)
[2022-01-11] MEDS: QUEtiapine FUMARATE 25 MG TAB PO SCH ×2 (09:05→21:26)
[2022-01-11] MEDS: ROSUVASTATIN 10 MG TAB (CRESTOR) PO SCH (21:26)
[2022-01-11] MEDS: SENOKOT S TAB PO PRN (21:27)
[2022-01-11] MEDS: ACETAMINOPHEN TAB 650MG DOSE (2X325MG) PO PRN (23:08)
[2022-01-12] MEDS: ALPRAZolam 0.25 MG TAB PO PRN ×6 (01:28→22:10)
[2022-01-12] MEDS: PERCOCET 5MG/325MG TAB PO PRN ×6 (01:28→22:10)
[2022-01-12 06:00] VITALS: BP 146/87
[2022-01-12] MEDS: HEPARIN SOD (PORCINE) 5000UNITS/ML 1ML VIAL/SYRINGE SQ SCH ×3 (06:00→21:12)
[2022-01-12] MEDS: QUEtiapine FUMARATE 25 MG TAB PO SCH ×2 (09:30→22:10)
[2022-01-12] MEDS: ASPIRIN 81MG CHEW TABLET PO SCH (09:31)
[2022-01-12] MEDS: ACETAMINOPHEN TAB 650MG DOSE (2X325MG) PO PRN (11:41)
[2022-01-12] MEDS: RAMELTEON 8 MG TAB (ROZEREM) PO PRN (22:10)
[2022-01-12] MEDS: ROSUVASTATIN 10 MG TAB (CRESTOR) PO SCH (22:11)
[2022-01-13] MEDS: PERCOCET 5MG/325MG TAB PO PRN ×5 (02:03→21:27)
[2022-01-13] MEDS: ALPRAZolam 0.25 MG TAB PO PRN ×5 (02:03→21:27)
[2022-01-13] MEDS: HEPARIN SOD (PORCINE) 5000UNITS/ML 1ML VIAL/SYRINGE SQ SCH ×3 (05:02→21:27)
[2022-01-13 06:09] VITALS: BP 146/86
[2022-01-13] MEDS: QUEtiapine FUMARATE 25 MG TAB PO SCH ×2 (10:14→21:26)
[2022-01-13] MEDS: ASPIRIN 81MG CHEW TABLET PO SCH (10:14)
[2022-01-13] MEDS: RAMELTEON 8 MG TAB (ROZEREM) PO PRN (21:26)
[2022-01-13] MEDS: ROSUVASTATIN 10 MG TAB (CRESTOR) PO SCH (21:27)
[2022-01-14] MEDS: PERCOCET 5MG/325MG TAB PO PRN ×5 (02:14→22:50)
[2022-01-14] MEDS: ALPRAZolam 0.25 MG TAB PO PRN ×5 (02:14→22:50)
[2022-01-14 05:26] VITALS: BP 143/86
[2022-01-14] MEDS: HEPARIN SOD (PORCINE) 5000UNITS/ML 1ML VIAL/SYRINGE SQ SCH ×3 (05:28→21:59)
[2022-01-14] MEDS: QUEtiapine FUMARATE 25 MG TAB PO SCH ×2 (09:23→21:59)
[2022-01-14] MEDS: ASPIRIN 81MG CHEW TABLET PO SCH (09:23)
[2022-01-14] MEDS: ROSUVASTATIN 10 MG TAB (CRESTOR) PO SCH (21:58)
[2022-01-14] MEDS: RAMELTEON 8 MG TAB (ROZEREM) PO PRN (21:58)
[2022-01-14] MEDS: SENOKOT S TAB PO PRN (22:00)
[2022-01-14] MEDS: POLYVINYL ALCOHOL OPHTH SOLN 15ML (LIQUITEARS) OU PRN (22:01)
[2022-01-15] MEDS: ALPRAZolam 0.25 MG TAB PO PRN ×5 (03:04→23:35)
[2022-01-15] MEDS: PERCOCET 5MG/325MG TAB PO PRN ×5 (03:05→23:35)
[2022-01-15] MEDS: HEPARIN SOD (PORCINE) 5000UNITS/ML 1ML VIAL/SYRINGE SQ SCH ×3 (05:18→21:11)
[2022-01-15 05:35] VITALS: BP 145/83
[2022-01-15] MEDS: ASPIRIN 81MG CHEW TABLET PO SCH (08:05)
[2022-01-15] MEDS: QUEtiapine FUMARATE 25 MG TAB PO SCH ×2 (08:05→21:00)
[2022-01-15] MEDS: RAMELTEON 8 MG TAB (ROZEREM) PO PRN (21:00)
[2022-01-15] MEDS: ROSUVASTATIN 10 MG TAB (CRESTOR) PO SCH (21:00)
[2022-01-16] MEDS: PERCOCET 5MG/325MG TAB PO PRN ×5 (04:10→22:12)
[2022-01-16] MEDS: ALPRAZolam 0.25 MG TAB PO PRN ×5 (04:10→22:12)
[2022-01-16] MEDS: HEPARIN SOD (PORCINE) 5000UNITS/ML 1ML VIAL/SYRINGE SQ SCH ×3 (05:21→22:00)
[2022-01-16 06:00] VITALS: BP 135/74
[2022-01-16] MEDS: ASPIRIN 81MG CHEW TABLET PO SCH (08:14)
[2022-01-16] MEDS: QUEtiapine FUMARATE 25 MG TAB PO SCH ×2 (08:14→22:12)
[2022-01-16] MEDS: RAMELTEON 8 MG TAB (ROZEREM) PO PRN (22:12)
[2022-01-16] MEDS: ROSUVASTATIN 10 MG TAB (CRESTOR) PO SCH (22:12)
[2022-01-17] MEDS: ALPRAZolam 0.25 MG TAB PO PRN ×5 (02:25→21:15)
[2022-01-17] MEDS: PERCOCET 5MG/325MG TAB PO PRN ×5 (02:25→21:16)
[2022-01-17] MEDS: HEPARIN SOD (PORCINE) 5000UNITS/ML 1ML VIAL/SYRINGE SQ SCH ×3 (06:00→22:00)
[2022-01-17] MEDS: QUEtiapine FUMARATE 25 MG TAB PO SCH ×2 (10:30→21:15)
[2022-01-17] MEDS: ASPIRIN 81MG CHEW TABLET PO SCH (10:30)
[2022-01-17] MEDS: RAMELTEON 8 MG TAB (ROZEREM) PO PRN (21:15)
[2022-01-17] MEDS: ROSUVASTATIN 10 MG TAB (CRESTOR) PO SCH (21:15)
[2022-01-18] MEDS: PERCOCET 5MG/325MG TAB PO PRN ×6 (01:42→23:05)
[2022-01-18] MEDS: ALPRAZolam 0.25 MG TAB PO PRN ×6 (01:43→23:04)
[2022-01-18] MEDS: HEPARIN SOD (PORCINE) 5000UNITS/ML 1ML VIAL/SYRINGE SQ SCH ×4 (05:55→20:46)
[2022-01-18 06:00] VITALS: BP 139/76
[2022-01-18] MEDS: QUEtiapine FUMARATE 25 MG TAB PO SCH ×2 (09:22→20:45)
[2022-01-18] MEDS: ASPIRIN 81MG CHEW TABLET PO SCH (09:22)
[2022-01-18] MEDS: ROSUVASTATIN 10 MG TAB (CRESTOR) PO SCH (20:45)
[2022-01-18] MEDS: SENOKOT S TAB PO PRN (23:04)
[2022-01-19] MEDS: ALPRAZolam 0.25 MG TAB PO PRN ×6 (03:05→23:43)
[2022-01-19] MEDS: PERCOCET 5MG/325MG TAB PO PRN ×6 (03:05→23:44)
[2022-01-19 06:00] VITALS: BP 142/76
[2022-01-19] MEDS: HEPARIN SOD (PORCINE) 5000UNITS/ML 1ML VIAL/SYRINGE SQ SCH ×3 (06:00→22:00)
[2022-01-19] MEDS: ASPIRIN 81MG CHEW TABLET PO SCH (08:49)
[2022-01-19] MEDS: QUEtiapine FUMARATE 25 MG TAB PO SCH ×2 (08:49→21:48)
[2022-01-19] MEDS: ROSUVASTATIN 10 MG TAB (CRESTOR) PO SCH (21:48)
[2022-01-20] MEDS: PERCOCET 5MG/325MG TAB PO PRN ×5 (03:47→20:27)
[2022-01-20] MEDS: ALPRAZolam 0.25 MG TAB PO PRN ×5 (03:47→20:23)
[2022-01-20] MEDS: HEPARIN SOD (PORCINE) 5000UNITS/ML 1ML VIAL/SYRINGE SQ SCH ×3 (05:35→21:26)
[2022-01-20] MEDS: ASPIRIN 81MG CHEW TABLET PO SCH (08:10)
[2022-01-20] MEDS: QUEtiapine FUMARATE 25 MG TAB PO SCH ×2 (08:10→20:22)
[2022-01-20] MEDS: ROSUVASTATIN 10 MG TAB (CRESTOR) PO SCH (20:23)
[2022-01-21] MEDS: ALPRAZolam 0.25 MG TAB PO PRN ×6 (00:33→21:55)
[2022-01-21] MEDS: PERCOCET 5MG/325MG TAB PO PRN ×7 (00:49→22:33)
[2022-01-21] MEDS: HEPARIN SOD (PORCINE) 5000UNITS/ML 1ML VIAL/SYRINGE SQ SCH ×3 (05:53→22:00)
[2022-01-21 06:00] VITALS: BP 161/78
[2022-01-21] MEDS: QUEtiapine FUMARATE 25 MG TAB PO SCH ×2 (09:59→21:55)
[2022-01-21] MEDS: ASPIRIN 81MG CHEW TABLET PO SCH (10:00)
[2022-01-21] MEDS: ACETAMINOPHEN TAB 650MG DOSE (2X325MG) PO PRN (16:38)
[2022-01-21] MEDS: ROSUVASTATIN 10 MG TAB (CRESTOR) PO SCH (21:55)
[2022-01-22] MEDS: ALPRAZolam 0.25 MG TAB PO PRN ×6 (01:58→21:53)
[2022-01-22] MEDS: PERCOCET 5MG/325MG TAB PO PRN ×6 (01:59→21:54)
[2022-01-22] MEDS: HEPARIN SOD (PORCINE) 5000UNITS/ML 1ML VIAL/SYRINGE SQ SCH ×3 (05:52→21:06)
[2022-01-22 06:00] VITALS: BP 165/81
[2022-01-22] MEDS: QUEtiapine FUMARATE 25 MG TAB PO SCH ×2 (10:04→21:52)
[2022-01-22] MEDS: ASPIRIN 81MG CHEW TABLET PO SCH (10:05)
[2022-01-22] MEDS: ROSUVASTATIN 10 MG TAB (CRESTOR) PO SCH (21:53)
[2022-01-23] MEDS: ALPRAZolam 0.25 MG TAB PO PRN ×6 (02:03→22:45)
[2022-01-23] MEDS: PERCOCET 5MG/325MG TAB PO PRN ×6 (02:04→22:46)
[2022-01-23] MEDS: HEPARIN SOD (PORCINE) 5000UNITS/ML 1ML VIAL/SYRINGE SQ SCH ×3 (05:54→22:00)
[2022-01-23 06:00] VITALS: BP 130/68
[2022-01-23] MEDS: ASPIRIN 81MG CHEW TABLET PO SCH (09:53)
[2022-01-23] MEDS: QUEtiapine FUMARATE 25 MG TAB PO SCH ×2 (09:53→22:45)
[2022-01-23] MEDS ORDERED: COVID IM.IMMUN ONE (16:00)
[2022-01-23] MEDS ORDERED: [UNRECOGNIZED DRUG - OTHER] IM.IMMUN ONE (16:00)
[2022-01-23] MEDS: ROSUVASTATIN 10 MG TAB (CRESTOR) PO SCH (22:45)
[2022-01-24] MEDS: ALPRAZolam 0.25 MG TAB PO PRN ×6 (02:50→23:28)
[2022-01-24] MEDS: PERCOCET 5MG/325MG TAB PO PRN ×6 (02:51→23:28)
[2022-01-24] MEDS: HEPARIN SOD (PORCINE) 5000UNITS/ML 1ML VIAL/SYRINGE SQ SCH ×3 (05:55→20:12)
[2022-01-24 06:00] VITALS: BP 126/73
[2022-01-24 09:27] LABS: BASO # 0.1 10^3/uL (0.0-0.2); BASO % 0.6 % (0.0-1.0); EOS # 0.6 10^3/uL (0.0-0.5); EOS % 5.5 % (0.0-3.0); HEMOGLOBIN 13.4 g/dl (13.5-17.5); LYMPH # 2.3 10^3/uL (1.5-5.0); LYMPH % 22.1 % (24.0-44.0); MEAN CORPUSCULAR HEMOGLOBIN 29.1 pg (27.0-33.0); MEAN CORPUSCULAR HGB CONC 31.9 g/dl (32.0-36.5); MEAN CORPUSCULAR VOLUME 91.1 fl (80.0-96.0); MONO # 0.9 10^3/uL (0.0-0.8); MONO % 8.5 % (2.0-8.0); NEUTROPHILS # 6.6 10^3/uL (1.5-8.5); NEUTROPHILS % 62.9 % (36.0-66.0); PLATELET COUNT, AUTOMATED 191 10^3/uL (150-450); RED BLOOD COUNT 4.61 10^6/uL (4.30-6.10); WHITE BLOOD COUNT 10.5 10^3/uL (4.0-10.0)
[2022-01-24] MEDS: QUEtiapine FUMARATE 25 MG TAB PO SCH ×2 (09:36→20:11)
[2022-01-24] MEDS: ASPIRIN 81MG CHEW TABLET PO SCH (09:36)
[2022-01-24 09:42] LABS: BLOOD UREA NITROGEN 16 MG/DL (7-18); CALCIUM LEVEL 8.6 MG/DL (8.8-10.2); CARBON DIOXIDE LEVEL 28 MEQ/L (21-32); CHLORIDE LEVEL 105 MEQ/L (98-107); CREATININE FOR GFR 1.15 MG/DL (0.70-1.30); GLOMERULAR FILTRATION RATE > 60.0 (>35); GLUCOSE, FASTING 270 MG/DL (70-100); MAGNESIUM LEVEL 1.8 MG/DL (1.8-2.4); POTASSIUM SERUM 4.2 MEQ/L (3.5-5.1); SODIUM LEVEL 139 MEQ/L (136-145)
[2022-01-24 10:03] LABS: ALBUMIN 2.9 GM/DL (3.2-5.2); ALKALINE PHOSPHATASE 84 U/L (45-117); ALT/SGPT 41 U/L (12-78); AST/SGOT 25 U/L (7-37); BILIRUBIN,DIRECT 0.2 MG/DL (0.0-0.2); BILIRUBIN,TOTAL 0.5 MG/DL (0.2-1.0); TOTAL PROTEIN 6.9 GM/DL (6.4-8.2)
[2022-01-24] MEDS ORDERED: MAGNESIUM CITRATE 300ML BTL PO ONE (11:40)
[2022-01-24] MEDS: FUROSEMIDE 40 MG TAB PO SCH (11:55)
[2022-01-24] MEDS: MAGNESIUM OXIDE 400MG TAB (MAG-OX) PO SCH ×2 (11:55→20:12)
[2022-01-24] MEDS: ROSUVASTATIN 10 MG TAB (CRESTOR) PO SCH (20:12)
[2022-01-25] MEDS: PERCOCET 5MG/325MG TAB PO PRN ×5 (03:31→20:04)
[2022-01-25] MEDS: ALPRAZolam 0.25 MG TAB PO PRN ×5 (03:32→20:05)
[2022-01-25 06:00] VITALS: BP 134/73
[2022-01-25] MEDS: HEPARIN SOD (PORCINE) 5000UNITS/ML 1ML VIAL/SYRINGE SQ SCH ×3 (06:00→22:00)
[2022-01-25] MEDS: ASPIRIN 81MG CHEW TABLET PO SCH (07:36)
[2022-01-25] MEDS: QUEtiapine FUMARATE 25 MG TAB PO SCH ×2 (07:36→20:05)
[2022-01-25] MEDS: FUROSEMIDE 40 MG TAB PO SCH (07:37)
[2022-01-25] MEDS: MAGNESIUM OXIDE 400MG TAB (MAG-OX) PO SCH ×2 (07:37→20:06)
[2022-01-25] MEDS: ROSUVASTATIN 10 MG TAB (CRESTOR) PO SCH (20:04)
[2022-01-25] MEDS: RAMELTEON 8 MG TAB (ROZEREM) PO PRN (20:05)
[2022-01-26] MEDS: HEPARIN SOD (PORCINE) 5000UNITS/ML 1ML VIAL/SYRINGE SQ SCH ×3 (04:51→22:00)
[2022-01-26] MEDS: PERCOCET 5MG/325MG TAB PO PRN ×5 (05:14→21:48)
[2022-01-26] MEDS: ALPRAZolam 0.25 MG TAB PO PRN ×5 (05:14→21:47)
[2022-01-26] MEDS: ASPIRIN 81MG CHEW TABLET PO SCH (09:20)
[2022-01-26] MEDS: MAGNESIUM OXIDE 400MG TAB (MAG-OX) PO SCH ×2 (09:21→21:46)
[2022-01-26] MEDS: FUROSEMIDE 40 MG TAB PO SCH (09:21)
[2022-01-26] MEDS: QUEtiapine FUMARATE 25 MG TAB PO SCH ×2 (09:21→21:47)
[2022-01-26] MEDS: RAMELTEON 8 MG TAB (ROZEREM) PO PRN (21:47)
[2022-01-26] MEDS: ROSUVASTATIN 10 MG TAB (CRESTOR) PO SCH (21:48)
[2022-01-27] MEDS: PERCOCET 5MG/325MG TAB PO PRN ×5 (04:00→20:45)
[2022-01-27] MEDS: ALPRAZolam 0.25 MG TAB PO PRN ×5 (04:00→20:45)
[2022-01-27 04:04] VITALS: BP 144/77
[2022-01-27] MEDS: HEPARIN SOD (PORCINE) 5000UNITS/ML 1ML VIAL/SYRINGE SQ SCH ×3 (05:34→22:00)
[2022-01-27] MEDS: FUROSEMIDE 40 MG TAB PO SCH (08:03)
[2022-01-27] MEDS: MAGNESIUM OXIDE 400MG TAB (MAG-OX) PO SCH ×2 (08:04→20:45)
[2022-01-27] MEDS: ASPIRIN 81MG CHEW TABLET PO SCH (08:04)
[2022-01-27] MEDS: QUEtiapine FUMARATE 25 MG TAB PO SCH ×2 (08:04→20:46)
[2022-01-27] MEDS: ROSUVASTATIN 10 MG TAB (CRESTOR) PO SCH (20:44)
[2022-01-27] MEDS: RAMELTEON 8 MG TAB (ROZEREM) PO PRN (20:45)
[2022-01-28] MEDS: ALPRAZolam 0.25 MG TAB PO PRN ×6 (01:33→22:18)
[2022-01-28] MEDS: PERCOCET 5MG/325MG TAB PO PRN ×6 (01:34→22:18)
[2022-01-28] MEDS: HEPARIN SOD (PORCINE) 5000UNITS/ML 1ML VIAL/SYRINGE SQ SCH ×3 (05:05→22:00)
[2022-01-28] MEDS: ASPIRIN 81MG CHEW TABLET PO SCH (10:17)
[2022-01-28] MEDS: QUEtiapine FUMARATE 25 MG TAB PO SCH ×2 (10:17→22:19)
[2022-01-28] MEDS: FUROSEMIDE 40 MG TAB PO SCH (10:17)
[2022-01-28] MEDS: MAGNESIUM OXIDE 400MG TAB (MAG-OX) PO SCH ×2 (10:17→22:18)
[2022-01-28] MEDS: ROSUVASTATIN 10 MG TAB (CRESTOR) PO SCH (22:18)
[2022-01-28] MEDS: RAMELTEON 8 MG TAB (ROZEREM) PO PRN (22:19)
[2022-01-29] MEDS: ALPRAZolam 0.25 MG TAB PO PRN ×5 (02:26→22:45)
[2022-01-29] MEDS: PERCOCET 5MG/325MG TAB PO PRN ×5 (02:27→22:45)
[2022-01-29 06:00] VITALS: BP 131/70
[2022-01-29] MEDS: HEPARIN SOD (PORCINE) 5000UNITS/ML 1ML VIAL/SYRINGE SQ SCH ×3 (06:00→22:00)
[2022-01-29] MEDS: ASPIRIN 81MG CHEW TABLET PO SCH (08:02)
[2022-01-29] MEDS: FUROSEMIDE 40 MG TAB PO SCH (08:03)
[2022-01-29] MEDS: MAGNESIUM OXIDE 400MG TAB (MAG-OX) PO SCH ×2 (08:03→20:13)
[2022-01-29] MEDS: QUEtiapine FUMARATE 25 MG TAB PO SCH ×2 (08:03→20:13)
[2022-01-29] MEDS: ROSUVASTATIN 10 MG TAB (CRESTOR) PO SCH (20:12)
[2022-01-29] MEDS: RAMELTEON 8 MG TAB (ROZEREM) PO PRN (22:45)
[2022-01-30] MEDS: ALPRAZolam 0.25 MG TAB PO PRN ×5 (02:43→21:42)
[2022-01-30] MEDS: PERCOCET 5MG/325MG TAB PO PRN ×5 (02:43→21:41)
[2022-01-30] MEDS: HEPARIN SOD (PORCINE) 5000UNITS/ML 1ML VIAL/SYRINGE SQ SCH ×3 (05:06→21:08)
[2022-01-30 06:00] VITALS: BP 153/70
[2022-01-30] MEDS: ASPIRIN 81MG CHEW TABLET PO SCH (09:50)
[2022-01-30] MEDS: QUEtiapine FUMARATE 25 MG TAB PO SCH ×2 (09:51→21:41)
[2022-01-30] MEDS: FUROSEMIDE 40 MG TAB PO SCH (09:51)
[2022-01-30] MEDS: MAGNESIUM OXIDE 400MG TAB (MAG-OX) PO SCH ×2 (09:52→21:41)
[2022-01-30] MEDS: ROSUVASTATIN 10 MG TAB (CRESTOR) PO SCH (21:41)
[2022-01-30] MEDS: RAMELTEON 8 MG TAB (ROZEREM) PO PRN (21:42)
[2022-01-31] MEDS: PERCOCET 5MG/325MG TAB PO PRN ×5 (01:34→20:39)
[2022-01-31] MEDS: ALPRAZolam 0.25 MG TAB PO PRN ×5 (01:34→20:39)
[2022-01-31] MEDS: HEPARIN SOD (PORCINE) 5000UNITS/ML 1ML VIAL/SYRINGE SQ SCH ×3 (05:03→22:00)
[2022-01-31 06:24] VITALS: BP 152/90
[2022-01-31 09:40] VITALS: BP 148/84
[2022-01-31] MEDS: QUEtiapine FUMARATE 25 MG TAB PO SCH ×2 (09:41→20:39)
[2022-01-31] MEDS: ASPIRIN 81MG CHEW TABLET PO SCH (09:41)
[2022-01-31] MEDS: MAGNESIUM OXIDE 400MG TAB (MAG-OX) PO SCH ×2 (09:42→20:40)
[2022-01-31] MEDS: FUROSEMIDE 40 MG TAB PO SCH (09:42)
[2022-01-31] MEDS ORDERED: MIRALAX *UNIT DOSE* 17GM PACKET PO ONE (16:45)
[2022-01-31] MEDS: MIRALAX *UNIT DOSE* 17GM PACKET PO SCH (20:38)
[2022-01-31] MEDS: SENNA 8.6 MG TAB (SENOKOT) PO SCH (20:39)
[2022-01-31] MEDS: ROSUVASTATIN 10 MG TAB (CRESTOR) PO SCH (20:39)
[2022-01-31] MEDS: RAMELTEON 8 MG TAB (ROZEREM) PO PRN (20:39)
[2022-02-01] MEDS: PERCOCET 5MG/325MG TAB PO PRN ×5 (00:42→20:09)
[2022-02-01] MEDS: ALPRAZolam 0.25 MG TAB PO PRN ×5 (00:42→20:07)
[2022-02-01 06:00] VITALS: BP 150/84
[2022-02-01] MEDS: HEPARIN SOD (PORCINE) 5000UNITS/ML 1ML VIAL/SYRINGE SQ SCH ×3 (06:00→22:00)
[2022-02-01] MEDS: ASPIRIN 81MG CHEW TABLET PO SCH (08:43)
[2022-02-01] MEDS: QUEtiapine FUMARATE 25 MG TAB PO SCH ×2 (08:43→20:07)
[2022-02-01] MEDS: MIRALAX *UNIT DOSE* 17GM PACKET PO SCH ×2 (08:44→20:08)
[2022-02-01] MEDS: SENNA 8.6 MG TAB (SENOKOT) PO SCH ×2 (08:44→20:08)
[2022-02-01] MEDS: MAGNESIUM OXIDE 400MG TAB (MAG-OX) PO SCH ×2 (08:44→20:08)
[2022-02-01] MEDS: FUROSEMIDE 40 MG TAB PO SCH (08:48)
[2022-02-01] MEDS ORDERED: FLEET OIL RETENTION ENEMA PR PRN (10:30)
[2022-02-01] MEDS: RAMELTEON 8 MG TAB (ROZEREM) PO PRN (20:06)
[2022-02-01] MEDS: ROSUVASTATIN 10 MG TAB (CRESTOR) PO SCH (20:07)
[2022-02-02] MEDS: ALPRAZolam 0.25 MG TAB PO PRN ×5 (00:15→22:46)
[2022-02-02] MEDS: PERCOCET 5MG/325MG TAB PO PRN ×5 (00:15→22:47)
[2022-02-02] MEDS: HEPARIN SOD (PORCINE) 5000UNITS/ML 1ML VIAL/SYRINGE SQ SCH ×3 (05:24→22:00)
[2022-02-02 06:00] VITALS: BP 145/78
[2022-02-02] MEDS: ASPIRIN 81MG CHEW TABLET PO SCH (09:44)
[2022-02-02] MEDS: QUEtiapine FUMARATE 25 MG TAB PO SCH ×2 (09:45→22:30)
[2022-02-02] MEDS: MIRALAX *UNIT DOSE* 17GM PACKET PO SCH ×2 (09:45→22:36)
[2022-02-02] MEDS: SENNA 8.6 MG TAB (SENOKOT) PO SCH ×2 (09:46→22:30)
[2022-02-02] MEDS: MAGNESIUM OXIDE 400MG TAB (MAG-OX) PO SCH ×2 (09:46→22:30)
[2022-02-02] MEDS: ROSUVASTATIN 10 MG TAB (CRESTOR) PO SCH (22:31)
[2022-02-03] MEDS: HEPARIN SOD (PORCINE) 5000UNITS/ML 1ML VIAL/SYRINGE SQ SCH ×3 (05:00→22:00)
[2022-02-03 05:22] VITALS: BP 125/72
[2022-02-03] MEDS: ALPRAZolam 0.25 MG TAB PO PRN ×4 (06:49→20:13)
[2022-02-03] MEDS: PERCOCET 5MG/325MG TAB PO PRN ×4 (06:50→20:14)
[2022-02-03] MEDS: SENNA 8.6 MG TAB (SENOKOT) PO SCH ×2 (09:00→22:34)
[2022-02-03] MEDS: MIRALAX *UNIT DOSE* 17GM PACKET PO SCH ×2 (09:00→21:00)
[2022-02-03] MEDS: ASPIRIN 81MG CHEW TABLET PO SCH (11:19)
[2022-02-03] MEDS: QUEtiapine FUMARATE 25 MG TAB PO SCH ×2 (11:20→22:33)
[2022-02-03] MEDS: MAGNESIUM OXIDE 400MG TAB (MAG-OX) PO SCH ×2 (11:20→22:34)
[2022-02-03] MEDS: ROSUVASTATIN 10 MG TAB (CRESTOR) PO SCH (22:34)
[2022-02-03] MEDS: RAMELTEON 8 MG TAB (ROZEREM) PO PRN (22:34)
[2022-02-04] MEDS: PERCOCET 5MG/325MG TAB PO PRN ×5 (01:01→20:55)
[2022-02-04] MEDS: ALPRAZolam 0.25 MG TAB PO PRN ×5 (01:02→20:54)
[2022-02-04 04:15] VITALS: BP 146/75
[2022-02-04] MEDS: HEPARIN SOD (PORCINE) 5000UNITS/ML 1ML VIAL/SYRINGE SQ SCH ×3 (06:00→20:55)
[2022-02-04] MEDS: MIRALAX *UNIT DOSE* 17GM PACKET PO SCH ×2 (09:00→20:55)
[2022-02-04] MEDS: ASPIRIN 81MG CHEW TABLET PO SCH (09:48)
[2022-02-04] MEDS: QUEtiapine FUMARATE 25 MG TAB PO SCH ×2 (09:49→20:53)
[2022-02-04] MEDS: SENNA 8.6 MG TAB (SENOKOT) PO SCH ×2 (09:50→20:53)
[2022-02-04] MEDS: MAGNESIUM OXIDE 400MG TAB (MAG-OX) PO SCH ×2 (09:50→20:54)
[2022-02-04] MEDS: ROSUVASTATIN 10 MG TAB (CRESTOR) PO SCH (20:53)
[2022-02-05] MEDS: ALPRAZolam 0.25 MG TAB PO PRN ×4 (02:26→18:33)
[2022-02-05] MEDS: PERCOCET 5MG/325MG TAB PO PRN ×4 (02:27→18:33)
[2022-02-05 04:48] VITALS: BP 133/72
[2022-02-05] MEDS: HEPARIN SOD (PORCINE) 5000UNITS/ML 1ML VIAL/SYRINGE SQ SCH ×3 (05:37→22:00)
[2022-02-05] MEDS: SENNA 8.6 MG TAB (SENOKOT) PO SCH ×2 (08:43→21:00)
[2022-02-05] MEDS: ASPIRIN 81MG CHEW TABLET PO SCH (08:43)
[2022-02-05] MEDS: MIRALAX *UNIT DOSE* 17GM PACKET PO SCH ×2 (08:43→21:00)
[2022-02-05] MEDS: MAGNESIUM OXIDE 400MG TAB (MAG-OX) PO SCH ×2 (08:44→21:00)
[2022-02-05] MEDS: QUEtiapine FUMARATE 25 MG TAB PO SCH ×2 (08:44→21:00)
[2022-02-05] MEDS: ROSUVASTATIN 10 MG TAB (CRESTOR) PO SCH (21:00)
[2022-02-06] MEDS: ALPRAZolam 0.25 MG TAB PO PRN ×5 (01:35→21:11)
[2022-02-06] MEDS: PERCOCET 5MG/325MG TAB PO PRN ×5 (01:36→21:10)
[2022-02-06] MEDS: RAMELTEON 8 MG TAB (ROZEREM) PO PRN (01:36)
[2022-02-06] MEDS: HEPARIN SOD (PORCINE) 5000UNITS/ML 1ML VIAL/SYRINGE SQ SCH ×3 (05:49→21:11)
[2022-02-06 06:48] VITALS: BP 118/52
[2022-02-06] MEDS: MIRALAX *UNIT DOSE* 17GM PACKET PO SCH ×2 (10:04→21:00)
[2022-02-06] MEDS: QUEtiapine FUMARATE 25 MG TAB PO SCH ×2 (10:05→21:10)
[2022-02-06] MEDS: SENNA 8.6 MG TAB (SENOKOT) PO SCH ×2 (10:05→21:11)
[2022-02-06] MEDS: ASPIRIN 81MG CHEW TABLET PO SCH (10:05)
[2022-02-06] MEDS: MAGNESIUM OXIDE 400MG TAB (MAG-OX) PO SCH ×2 (10:06→21:11)
[2022-02-06] MEDS: ROSUVASTATIN 10 MG TAB (CRESTOR) PO SCH (21:11)
[2022-02-07] MEDS: ALPRAZolam 0.25 MG TAB PO PRN ×5 (01:32→21:02)
[2022-02-07] MEDS: PERCOCET 5MG/325MG TAB PO PRN ×5 (01:32→21:02)
[2022-02-07] MEDS: HEPARIN SOD (PORCINE) 5000UNITS/ML 1ML VIAL/SYRINGE SQ SCH ×3 (05:47→21:05)
[2022-02-07 06:00] VITALS: BP 124/83
[2022-02-07] MEDS: MIRALAX *UNIT DOSE* 17GM PACKET PO SCH ×2 (09:00→21:01)
[2022-02-07] MEDS: ASPIRIN 81MG CHEW TABLET PO SCH (09:14)
[2022-02-07] MEDS: QUEtiapine FUMARATE 25 MG TAB PO SCH ×2 (09:14→21:02)
[2022-02-07] MEDS: SENNA 8.6 MG TAB (SENOKOT) PO SCH ×2 (09:15→21:02)
[2022-02-07] MEDS: MAGNESIUM OXIDE 400MG TAB (MAG-OX) PO SCH ×2 (09:15→21:01)
[2022-02-07] MEDS: ROSUVASTATIN 10 MG TAB (CRESTOR) PO SCH (21:01)
[2022-02-08] MEDS: ALPRAZolam 0.25 MG TAB PO PRN ×6 (01:51→21:18)
[2022-02-08] MEDS: PERCOCET 5MG/325MG TAB PO PRN ×6 (01:51→21:18)
[2022-02-08] MEDS: HEPARIN SOD (PORCINE) 5000UNITS/ML 1ML VIAL/SYRINGE SQ SCH ×3 (05:53→21:19)
[2022-02-08 06:01] VITALS: BP 167/97
[2022-02-08] MEDS: SENNA 8.6 MG TAB (SENOKOT) PO SCH ×2 (09:50→21:17)
[2022-02-08] MEDS: ASPIRIN 81MG CHEW TABLET PO SCH (09:50)
[2022-02-08] MEDS: QUEtiapine FUMARATE 25 MG TAB PO SCH ×2 (09:50→21:17)
[2022-02-08] MEDS: MAGNESIUM OXIDE 400MG TAB (MAG-OX) PO SCH ×2 (09:50→21:17)
[2022-02-08] MEDS: MIRALAX *UNIT DOSE* 17GM PACKET PO SCH ×2 (09:50→21:00)
[2022-02-08 20:22] VITALS: BP 115/52
[2022-02-08] MEDS: ROSUVASTATIN 10 MG TAB (CRESTOR) PO SCH (21:17)
[2022-02-09] MEDS: PERCOCET 5MG/325MG TAB PO PRN ×6 (01:24→22:08)
[2022-02-09] MEDS: ALPRAZolam 0.25 MG TAB PO PRN ×6 (01:24→22:07)
[2022-02-09] MEDS: HEPARIN SOD (PORCINE) 5000UNITS/ML 1ML VIAL/SYRINGE SQ SCH ×3 (05:11→22:00)
[2022-02-09 05:40] VITALS: BP 171/84
[2022-02-09] MEDS: SENNA 8.6 MG TAB (SENOKOT) PO SCH ×2 (09:00→22:06)
[2022-02-09] MEDS: MIRALAX *UNIT DOSE* 17GM PACKET PO SCH ×2 (09:00→22:09)
[2022-02-09] MEDS: MAGNESIUM OXIDE 400MG TAB (MAG-OX) PO SCH ×2 (10:31→22:07)
[2022-02-09] MEDS: QUEtiapine FUMARATE 25 MG TAB PO SCH ×2 (10:34→22:07)
[2022-02-09] MEDS: ASPIRIN 81MG CHEW TABLET PO SCH (10:34)
[2022-02-09] MEDS: ROSUVASTATIN 10 MG TAB (CRESTOR) PO SCH (22:08)
[2022-02-10] MEDS: HEPARIN SOD (PORCINE) 5000UNITS/ML 1ML VIAL/SYRINGE SQ SCH ×3 (05:03→20:57)
[2022-02-10 06:00] VITALS: BP 143/71
[2022-02-10] MEDS: MIRALAX *UNIT DOSE* 17GM PACKET PO SCH ×2 (09:00→20:57)
[2022-02-10] MEDS: QUEtiapine FUMARATE 25 MG TAB PO SCH ×2 (09:09→19:29)
[2022-02-10] MEDS: ALPRAZolam 0.25 MG TAB PO PRN ×3 (09:09→19:30)
[2022-02-10] MEDS: SENNA 8.6 MG TAB (SENOKOT) PO SCH ×2 (09:09→19:29)
[2022-02-10] MEDS: ASPIRIN 81MG CHEW TABLET PO SCH (09:09)
[2022-02-10] MEDS: MAGNESIUM OXIDE 400MG TAB (MAG-OX) PO SCH ×2 (09:10→19:28)
[2022-02-10] MEDS: PERCOCET 5MG/325MG TAB PO PRN ×3 (09:10→19:31)
[2022-02-10] MEDS: ROSUVASTATIN 10 MG TAB (CRESTOR) PO SCH (19:30)
[2022-02-11] MEDS: PERCOCET 5MG/325MG TAB PO PRN ×6 (00:36→21:04)
[2022-02-11] MEDS: ALPRAZolam 0.25 MG TAB PO PRN ×6 (00:36→21:03)
[2022-02-11] MEDS: HEPARIN SOD (PORCINE) 5000UNITS/ML 1ML VIAL/SYRINGE SQ SCH ×3 (05:00→21:35)
[2022-02-11] MEDS: ASPIRIN 81MG CHEW TABLET PO SCH (08:41)
[2022-02-11] MEDS: MAGNESIUM OXIDE 400MG TAB (MAG-OX) PO SCH ×2 (08:41→21:02)
[2022-02-11] MEDS: QUEtiapine FUMARATE 25 MG TAB PO SCH ×2 (08:42→21:03)
[2022-02-11] MEDS: SENNA 8.6 MG TAB (SENOKOT) PO SCH ×2 (08:42→21:02)
[2022-02-11] MEDS: MIRALAX *UNIT DOSE* 17GM PACKET PO SCH ×2 (08:49→21:00)
[2022-02-11] MEDS: ROSUVASTATIN 10 MG TAB (CRESTOR) PO SCH (21:02)
[2022-02-12] MEDS: PERCOCET 5MG/325MG TAB PO PRN ×5 (02:58→20:11)
[2022-02-12] MEDS: ALPRAZolam 0.25 MG TAB PO PRN ×5 (02:58→20:12)
[2022-02-12] MEDS: HEPARIN SOD (PORCINE) 5000UNITS/ML 1ML VIAL/SYRINGE SQ SCH ×3 (05:14→20:19)
[2022-02-12 06:00] VITALS: BP 152/82
[2022-02-12] MEDS: MIRALAX *UNIT DOSE* 17GM PACKET PO SCH ×2 (09:00→20:19)
[2022-02-12] MEDS: MAGNESIUM OXIDE 400MG TAB (MAG-OX) PO SCH ×2 (09:41→20:12)
[2022-02-12] MEDS: ASPIRIN 81MG CHEW TABLET PO SCH (09:41)
[2022-02-12] MEDS: SENNA 8.6 MG TAB (SENOKOT) PO SCH ×2 (09:42→20:11)
[2022-02-12] MEDS: QUEtiapine FUMARATE 25 MG TAB PO SCH ×2 (09:42→20:11)
[2022-02-12] MEDS: ROSUVASTATIN 10 MG TAB (CRESTOR) PO SCH (20:12)
[2022-02-13] MEDS: HEPARIN SOD (PORCINE) 5000UNITS/ML 1ML VIAL/SYRINGE SQ SCH ×3 (05:45→20:08)
[2022-02-13 06:00] VITALS: BP 148/81
[2022-02-13] MEDS: ASPIRIN 81MG CHEW TABLET PO SCH (10:11)
[2022-02-13] MEDS: ALPRAZolam 0.25 MG TAB PO PRN ×2 (10:12→19:53)
[2022-02-13] MEDS: SENNA 8.6 MG TAB (SENOKOT) PO SCH ×2 (10:12→20:05)
[2022-02-13] MEDS: QUEtiapine FUMARATE 25 MG TAB PO SCH ×2 (10:13→20:06)
[2022-02-13] MEDS: PERCOCET 5MG/325MG TAB PO PRN ×2 (10:13→19:54)
[2022-02-13] MEDS: MAGNESIUM OXIDE 400MG TAB (MAG-OX) PO SCH ×2 (10:14→20:05)
[2022-02-13] MEDS: MIRALAX *UNIT DOSE* 17GM PACKET PO SCH ×2 (10:16→20:08)
[2022-02-13] MEDS: ROSUVASTATIN 10 MG TAB (CRESTOR) PO SCH (20:05)
[2022-02-14] MEDS: ALPRAZolam 0.25 MG TAB PO PRN ×6 (00:15→20:42)
[2022-02-14] MEDS: PERCOCET 5MG/325MG TAB PO PRN ×6 (00:16→20:40)
[2022-02-14] MEDS: HEPARIN SOD (PORCINE) 5000UNITS/ML 1ML VIAL/SYRINGE SQ SCH ×3 (05:22→20:43)
[2022-02-14 06:00] VITALS: BP 143/76
[2022-02-14] MEDS: MIRALAX *UNIT DOSE* 17GM PACKET PO SCH ×2 (09:00→20:42)
[2022-02-14] MEDS: SENNA 8.6 MG TAB (SENOKOT) PO SCH ×2 (09:04→20:41)
[2022-02-14] MEDS: MAGNESIUM OXIDE 400MG TAB (MAG-OX) PO SCH ×2 (09:06→20:41)
[2022-02-14] MEDS: QUEtiapine FUMARATE 25 MG TAB PO SCH ×2 (09:06→20:40)
[2022-02-14] MEDS: ASPIRIN 81MG CHEW TABLET PO SCH (09:06)
[2022-02-14] MEDS: ROSUVASTATIN 10 MG TAB (CRESTOR) PO SCH (20:39)
[2022-02-15] MEDS: ALPRAZolam 0.25 MG TAB PO PRN ×6 (00:57→21:56)
[2022-02-15] MEDS: PERCOCET 5MG/325MG TAB PO PRN ×6 (00:58→21:56)
[2022-02-15] MEDS: HEPARIN SOD (PORCINE) 5000UNITS/ML 1ML VIAL/SYRINGE SQ SCH ×3 (05:13→21:57)
[2022-02-15 06:00] VITALS: BP 125/74
[2022-02-15] MEDS: MIRALAX *UNIT DOSE* 17GM PACKET PO SCH ×3 (09:00→22:06)
[2022-02-15] MEDS: QUEtiapine FUMARATE 25 MG TAB PO SCH ×2 (09:08→21:56)
[2022-02-15] MEDS: ASPIRIN 81MG CHEW TABLET PO SCH (09:08)
[2022-02-15] MEDS: SENNA 8.6 MG TAB (SENOKOT) PO SCH ×2 (09:08→21:55)
[2022-02-15] MEDS: MAGNESIUM OXIDE 400MG TAB (MAG-OX) PO SCH ×2 (09:09→21:54)
[2022-02-15] MEDS: ROSUVASTATIN 10 MG TAB (CRESTOR) PO SCH (21:55)
[2022-02-15] MEDS: RAMELTEON 8 MG TAB (ROZEREM) PO PRN (21:56)
[2022-02-16] MEDS: ALPRAZolam 0.25 MG TAB PO PRN (02:50)
[2022-02-16] MEDS: PERCOCET 5MG/325MG TAB PO PRN (02:51)
[2022-02-16] MEDS: HEPARIN SOD (PORCINE) 5000UNITS/ML 1ML VIAL/SYRINGE SQ SCH ×4 (05:01→23:21)
[2022-02-16 06:33] VITALS: BP 133/79
[2022-02-16] MEDS: QUEtiapine FUMARATE 25 MG TAB PO SCH ×2 (09:00→20:01)
[2022-02-16] MEDS: MAGNESIUM OXIDE 400MG TAB (MAG-OX) PO SCH ×2 (09:00→20:00)
[2022-02-16] MEDS: ASPIRIN 81MG CHEW TABLET PO SCH (09:00)
[2022-02-16] MEDS: MIRALAX *UNIT DOSE* 17GM PACKET PO SCH ×2 (09:00→20:00)
[2022-02-16] MEDS: SENNA 8.6 MG TAB (SENOKOT) PO SCH ×2 (09:00→20:00)
[2022-02-16] MEDS: ROSUVASTATIN 10 MG TAB (CRESTOR) PO SCH (20:00)
[2022-02-17] MEDS: QUEtiapine FUMARATE 25 MG TAB PO SCH ×2 (09:00→21:00)
[2022-02-17] MEDS: MAGNESIUM OXIDE 400MG TAB (MAG-OX) PO SCH ×2 (09:00→21:00)
[2022-02-17] MEDS: MIRALAX *UNIT DOSE* 17GM PACKET PO SCH ×2 (09:00→21:00)
[2022-02-17] MEDS: SENNA 8.6 MG TAB (SENOKOT) PO SCH ×2 (09:00→21:00)
[2022-02-17] MEDS: ASPIRIN 81MG CHEW TABLET PO SCH (09:00)
[2022-02-17] MEDS: HEPARIN SOD (PORCINE) 5000UNITS/ML 1ML VIAL/SYRINGE SQ SCH ×2 (14:00→21:26)
[2022-02-17] MEDS: ROSUVASTATIN 10 MG TAB (CRESTOR) PO SCH (21:00)
[2022-02-18 00:07] VITALS: BP 156/84
[2022-02-18] MEDS ORDERED: ONDANSETRON 4MG ORAL DISINTEGRATING TAB PO PRN (00:20)
[2022-02-18] MEDS: ALPRAZolam 0.25 MG TAB PO PRN ×6 (00:25→20:32)
[2022-02-18] MEDS: PERCOCET 5MG/325MG TAB PO PRN ×7 (00:28→20:32)
[2022-02-18] MEDS: HEPARIN SOD (PORCINE) 5000UNITS/ML 1ML VIAL/SYRINGE SQ SCH ×3 (05:00→21:11)
[2022-02-18] MEDS: QUEtiapine FUMARATE 25 MG TAB PO SCH ×2 (09:00→20:32)
[2022-02-18] MEDS: MIRALAX *UNIT DOSE* 17GM PACKET PO SCH ×2 (09:00→21:00)
[2022-02-18] MEDS: MAGNESIUM OXIDE 400MG TAB (MAG-OX) PO SCH ×2 (09:00→20:31)
[2022-02-18] MEDS: ASPIRIN 81MG CHEW TABLET PO SCH (09:00)
[2022-02-18] MEDS: SENNA 8.6 MG TAB (SENOKOT) PO SCH ×2 (09:00→21:00)
[2022-02-18] MEDS: ROSUVASTATIN 10 MG TAB (CRESTOR) PO SCH (20:31)
[2022-02-19] MEDS: ALPRAZolam 0.25 MG TAB PO PRN ×6 (00:45→20:59)
[2022-02-19] MEDS: PERCOCET 5MG/325MG TAB PO PRN ×6 (00:45→20:59)
[2022-02-19 02:18] VITALS: BP 152/79
[2022-02-19] MEDS: HEPARIN SOD (PORCINE) 5000UNITS/ML 1ML VIAL/SYRINGE SQ SCH ×3 (06:00→21:00)
[2022-02-19] MEDS: MIRALAX *UNIT DOSE* 17GM PACKET PO SCH ×2 (09:00→21:00)
[2022-02-19] MEDS: ASPIRIN 81MG CHEW TABLET PO SCH (09:54)
[2022-02-19] MEDS: SENNA 8.6 MG TAB (SENOKOT) PO SCH ×2 (09:55→20:59)
[2022-02-19] MEDS: MAGNESIUM OXIDE 400MG TAB (MAG-OX) PO SCH ×2 (09:55→20:58)
[2022-02-19] MEDS: QUEtiapine FUMARATE 25 MG TAB PO SCH ×2 (09:55→20:58)
[2022-02-19] MEDS: ROSUVASTATIN 10 MG TAB (CRESTOR) PO SCH (20:59)
[2022-02-20] MEDS: PERCOCET 5MG/325MG TAB PO PRN ×6 (01:31→21:27)
[2022-02-20] MEDS: ALPRAZolam 0.25 MG TAB PO PRN ×6 (01:31→21:29)
[2022-02-20] MEDS: HEPARIN SOD (PORCINE) 5000UNITS/ML 1ML VIAL/SYRINGE SQ SCH ×3 (05:17→22:00)
[2022-02-20 06:00] VITALS: BP 145/89
[2022-02-20] MEDS: MIRALAX *UNIT DOSE* 17GM PACKET PO SCH ×2 (09:00→21:00)
[2022-02-20] MEDS: SENNA 8.6 MG TAB (SENOKOT) PO SCH ×2 (09:00→21:00)
[2022-02-20] MEDS: QUEtiapine FUMARATE 25 MG TAB PO SCH ×2 (09:38→21:28)
[2022-02-20] MEDS: ASPIRIN 81MG CHEW TABLET PO SCH (09:40)
[2022-02-20] MEDS: MAGNESIUM OXIDE 400MG TAB (MAG-OX) PO SCH ×2 (09:40→21:27)
[2022-02-20] MEDS: ROSUVASTATIN 10 MG TAB (CRESTOR) PO SCH (21:27)
[2022-02-21] MEDS: PERCOCET 5MG/325MG TAB PO PRN ×6 (02:03→22:13)
[2022-02-21] MEDS: ALPRAZolam 0.25 MG TAB PO PRN ×6 (02:03→22:13)
[2022-02-21] MEDS: HEPARIN SOD (PORCINE) 5000UNITS/ML 1ML VIAL/SYRINGE SQ SCH ×4 (05:45→22:16)
[2022-02-21 06:28] VITALS: BP 145/88
[2022-02-21] MEDS: SENNA 8.6 MG TAB (SENOKOT) PO SCH ×2 (09:00→22:12)
[2022-02-21] MEDS: MIRALAX *UNIT DOSE* 17GM PACKET PO SCH ×2 (09:00→21:00)
[2022-02-21] MEDS: QUEtiapine FUMARATE 25 MG TAB PO SCH ×2 (10:03→22:12)
[2022-02-21] MEDS: ASPIRIN 81MG CHEW TABLET PO SCH (10:04)
[2022-02-21] MEDS: MAGNESIUM OXIDE 400MG TAB (MAG-OX) PO SCH ×2 (10:05→22:13)
[2022-02-21] MEDS: ROSUVASTATIN 10 MG TAB (CRESTOR) PO SCH (22:12)
[2022-02-22] MEDS: ALPRAZolam 0.25 MG TAB PO PRN ×6 (02:14→22:39)
[2022-02-22] MEDS: PERCOCET 5MG/325MG TAB PO PRN ×6 (02:14→22:40)
[2022-02-22] MEDS: QUEtiapine FUMARATE 25 MG TAB PO SCH ×2 (10:29→21:13)
[2022-02-22] MEDS: MAGNESIUM OXIDE 400MG TAB (MAG-OX) PO SCH ×2 (10:30→21:13)
[2022-02-22] MEDS: ASPIRIN 81MG CHEW TABLET PO SCH (10:30)
[2022-02-22] MEDS: HEPARIN SOD (PORCINE) 5000UNITS/ML 1ML VIAL/SYRINGE SQ SCH ×2 (14:00→21:17)
[2022-02-22] MEDS: ROSUVASTATIN 10 MG TAB (CRESTOR) PO SCH (21:13)
[2022-02-22] MEDS: SENOKOT S TAB PO PRN (21:19)
[2022-02-22] MEDS ORDERED: MOM 30ML SUSPENSION UDC PO ONE (22:00)
[2022-02-23] MEDS: ALPRAZolam 0.25 MG TAB PO PRN ×5 (02:55→21:16)
[2022-02-23] MEDS: PERCOCET 5MG/325MG TAB PO PRN ×5 (02:55→21:26)
[2022-02-23 05:29] VITALS: BP 152/90
[2022-02-23] MEDS: HEPARIN SOD (PORCINE) 5000UNITS/ML 1ML VIAL/SYRINGE SQ SCH ×3 (05:43→22:00)
[2022-02-23] MEDS: ASPIRIN 81MG CHEW TABLET PO SCH (09:58)
[2022-02-23] MEDS: MAGNESIUM OXIDE 400MG TAB (MAG-OX) PO SCH ×2 (09:58→21:15)
[2022-02-23] MEDS: QUEtiapine FUMARATE 25 MG TAB PO SCH ×2 (10:11→21:16)
[2022-02-23] MEDS: ROSUVASTATIN 10 MG TAB (CRESTOR) PO SCH (21:16)
[2022-02-24 00:51] VITALS: BP 185/87
[2022-02-24] MEDS: PERCOCET 5MG/325MG TAB PO PRN ×6 (01:24→23:21)
[2022-02-24] MEDS: ALPRAZolam 0.25 MG TAB PO PRN ×6 (01:24→23:20)
[2022-02-24] MEDS: HEPARIN SOD (PORCINE) 5000UNITS/ML 1ML VIAL/SYRINGE SQ SCH ×3 (04:44→22:00)
[2022-02-24] MEDS: MAGNESIUM OXIDE 400MG TAB (MAG-OX) PO SCH ×2 (11:13→21:17)
[2022-02-24] MEDS: ASPIRIN 81MG CHEW TABLET PO SCH (11:13)
[2022-02-24] MEDS: QUEtiapine FUMARATE 25 MG TAB PO SCH ×2 (11:15→21:17)
[2022-02-24] MEDS: ROSUVASTATIN 10 MG TAB (CRESTOR) PO SCH (21:17)
[2022-02-25] MEDS: ALPRAZolam 0.25 MG TAB PO PRN ×5 (03:19→23:48)
[2022-02-25] MEDS: PERCOCET 5MG/325MG TAB PO PRN ×5 (03:19→23:49)
[2022-02-25] MEDS: HEPARIN SOD (PORCINE) 5000UNITS/ML 1ML VIAL/SYRINGE SQ SCH ×3 (05:29→20:35)
[2022-02-25] MEDS: QUEtiapine FUMARATE 25 MG TAB PO SCH ×2 (09:53→19:47)
[2022-02-25] MEDS: ASPIRIN 81MG CHEW TABLET PO SCH (09:53)
[2022-02-25] MEDS: MAGNESIUM OXIDE 400MG TAB (MAG-OX) PO SCH ×2 (09:54→19:46)
[2022-02-25] MEDS: ROSUVASTATIN 10 MG TAB (CRESTOR) PO SCH (19:47)
[2022-02-25] MEDS: RAMELTEON 8 MG TAB (ROZEREM) PO PRN (19:47)
[2022-02-26] MEDS: PERCOCET 5MG/325MG TAB PO PRN ×4 (03:57→20:23)
[2022-02-26] MEDS: ALPRAZolam 0.25 MG TAB PO PRN ×4 (03:57→20:22)
[2022-02-26] MEDS: HEPARIN SOD (PORCINE) 5000UNITS/ML 1ML VIAL/SYRINGE SQ SCH ×3 (06:00→22:00)
[2022-02-26] MEDS: QUEtiapine FUMARATE 25 MG TAB PO SCH ×2 (09:29→20:22)
[2022-02-26] MEDS: MAGNESIUM OXIDE 400MG TAB (MAG-OX) PO SCH ×2 (09:29→20:22)
[2022-02-26] MEDS: ASPIRIN 81MG CHEW TABLET PO SCH (09:29)
[2022-02-26] MEDS: RAMELTEON 8 MG TAB (ROZEREM) PO PRN (20:22)
[2022-02-26] MEDS: ROSUVASTATIN 10 MG TAB (CRESTOR) PO SCH (20:22)
[2022-02-26] MEDS: SENOKOT S TAB PO PRN (20:25)
[2022-02-27] MEDS: ALPRAZolam 0.25 MG TAB PO PRN ×5 (03:32→21:57)
[2022-02-27] MEDS: PERCOCET 5MG/325MG TAB PO PRN ×5 (03:32→21:57)
[2022-02-27] MEDS: HEPARIN SOD (PORCINE) 5000UNITS/ML 1ML VIAL/SYRINGE SQ SCH ×3 (05:29→20:38)
[2022-02-27 06:02] VITALS: BP 137/83
[2022-02-27] MEDS: ACETAMINOPHEN TAB 650MG DOSE (2X325MG) PO PRN (07:42)
[2022-02-27] MEDS: ASPIRIN 81MG CHEW TABLET PO SCH (07:42)
[2022-02-27] MEDS: QUEtiapine FUMARATE 25 MG TAB PO SCH ×2 (07:43→20:38)
[2022-02-27] MEDS: MAGNESIUM OXIDE 400MG TAB (MAG-OX) PO SCH ×2 (07:43→20:38)
[2022-02-27] MEDS: ROSUVASTATIN 10 MG TAB (CRESTOR) PO SCH (20:38)
[2022-02-27] MEDS: RAMELTEON 8 MG TAB (ROZEREM) PO PRN (20:38)
[2022-02-28] MEDS: PERCOCET 5MG/325MG TAB PO PRN ×6 (02:28→23:44)
[2022-02-28] MEDS: ALPRAZolam 0.25 MG TAB PO PRN ×6 (02:28→23:43)
[2022-02-28] MEDS: HEPARIN SOD (PORCINE) 5000UNITS/ML 1ML VIAL/SYRINGE SQ SCH ×3 (05:21→19:52)
[2022-02-28] MEDS: QUEtiapine FUMARATE 25 MG TAB PO SCH ×2 (11:24→19:47)
[2022-02-28] MEDS: ASPIRIN 81MG CHEW TABLET PO SCH (11:24)
[2022-02-28] MEDS: MAGNESIUM OXIDE 400MG TAB (MAG-OX) PO SCH ×2 (11:25→19:48)
[2022-02-28] MEDS: RAMELTEON 8 MG TAB (ROZEREM) PO PRN (19:47)
[2022-02-28] MEDS: ROSUVASTATIN 10 MG TAB (CRESTOR) PO SCH (19:47)
[2022-03-01] MEDS: ALPRAZolam 0.25 MG TAB PO PRN ×5 (04:01→20:13)
[2022-03-01] MEDS: PERCOCET 5MG/325MG TAB PO PRN ×5 (04:03→20:13)
[2022-03-01] MEDS: HEPARIN SOD (PORCINE) 5000UNITS/ML 1ML VIAL/SYRINGE SQ SCH ×3 (04:04→19:29)
[2022-03-01 06:00] VITALS: BP 150/80
[2022-03-01] MEDS: QUEtiapine FUMARATE 25 MG TAB PO SCH ×2 (07:57→20:12)
[2022-03-01] MEDS: MAGNESIUM OXIDE 400MG TAB (MAG-OX) PO SCH ×2 (07:58→20:12)
[2022-03-01] MEDS: ASPIRIN 81MG CHEW TABLET PO SCH (07:58)
[2022-03-01] MEDS: RAMELTEON 8 MG TAB (ROZEREM) PO PRN (20:12)
[2022-03-01] MEDS: ROSUVASTATIN 10 MG TAB (CRESTOR) PO SCH (20:12)
[2022-03-02] MEDS: SENOKOT S TAB PO PRN (00:15)
[2022-03-02] MEDS: ALPRAZolam 0.25 MG TAB PO PRN ×6 (00:15→22:01)
[2022-03-02] MEDS: PERCOCET 5MG/325MG TAB PO PRN ×6 (00:16→22:02)
[2022-03-02] MEDS: HEPARIN SOD (PORCINE) 5000UNITS/ML 1ML VIAL/SYRINGE SQ SCH ×3 (05:35→21:07)
[2022-03-02 06:00] VITALS: BP 146/76
[2022-03-02] MEDS: MAGNESIUM OXIDE 400MG TAB (MAG-OX) PO SCH ×2 (08:03→22:01)
[2022-03-02] MEDS: ASPIRIN 81MG CHEW TABLET PO SCH (08:03)
[2022-03-02] MEDS: MOM 30ML SUSPENSION UDC PO SCH (08:03)
[2022-03-02] MEDS: QUEtiapine FUMARATE 25 MG TAB PO SCH ×2 (08:03→22:01)
[2022-03-02] MEDS: ROSUVASTATIN 10 MG TAB (CRESTOR) PO SCH (22:01)
[2022-03-02] MEDS: RAMELTEON 8 MG TAB (ROZEREM) PO PRN (22:01)
[2022-03-03] MEDS: ALPRAZolam 0.25 MG TAB PO PRN ×5 (02:03→20:36)
[2022-03-03] MEDS: PERCOCET 5MG/325MG TAB PO PRN ×5 (02:03→20:37)
[2022-03-03] MEDS: HEPARIN SOD (PORCINE) 5000UNITS/ML 1ML VIAL/SYRINGE SQ SCH ×3 (05:04→21:31)
[2022-03-03 06:00] VITALS: BP 121/74
[2022-03-03] MEDS: MAGNESIUM OXIDE 400MG TAB (MAG-OX) PO SCH ×2 (09:01→20:36)
[2022-03-03] MEDS: QUEtiapine FUMARATE 25 MG TAB PO SCH ×2 (09:01→20:37)
[2022-03-03] MEDS: ASPIRIN 81MG CHEW TABLET PO SCH (09:01)
[2022-03-03] MEDS: MOM 30ML SUSPENSION UDC PO SCH (09:01)
[2022-03-03] MEDS: SENOKOT S TAB PO PRN (10:38)
[2022-03-03] MEDS: RAMELTEON 8 MG TAB (ROZEREM) PO PRN (20:36)
[2022-03-03] MEDS: ROSUVASTATIN 10 MG TAB (CRESTOR) PO SCH (20:36)
[2022-03-04] MEDS: ALPRAZolam 0.25 MG TAB PO PRN ×5 (02:33→20:31)
[2022-03-04] MEDS: PERCOCET 5MG/325MG TAB PO PRN ×5 (02:34→20:31)
[2022-03-04] MEDS: HEPARIN SOD (PORCINE) 5000UNITS/ML 1ML VIAL/SYRINGE SQ SCH ×3 (05:05→20:32)
[2022-03-04] MEDS: QUEtiapine FUMARATE 25 MG TAB PO SCH ×2 (08:16→20:31)
[2022-03-04] MEDS: ASPIRIN 81MG CHEW TABLET PO SCH (08:16)
[2022-03-04] MEDS: MAGNESIUM OXIDE 400MG TAB (MAG-OX) PO SCH ×2 (08:16→20:32)
[2022-03-04] MEDS: MOM 30ML SUSPENSION UDC PO SCH (08:18)
[2022-03-04] MEDS: ROSUVASTATIN 10 MG TAB (CRESTOR) PO SCH (20:31)
[2022-03-04] MEDS: RAMELTEON 8 MG TAB (ROZEREM) PO PRN (20:31)
[2022-03-05] MEDS: PERCOCET 5MG/325MG TAB PO PRN ×6 (00:35→21:25)
[2022-03-05] MEDS: ALPRAZolam 0.25 MG TAB PO PRN ×6 (00:35→21:25)
[2022-03-05] MEDS: HEPARIN SOD (PORCINE) 5000UNITS/ML 1ML VIAL/SYRINGE SQ SCH ×3 (05:19→21:56)
[2022-03-05] MEDS: ASPIRIN 81MG CHEW TABLET PO SCH (08:48)
[2022-03-05] MEDS: SENOKOT S TAB PO PRN (08:48)
[2022-03-05] MEDS: QUEtiapine FUMARATE 25 MG TAB PO SCH ×2 (08:49→21:25)
[2022-03-05] MEDS: MAGNESIUM OXIDE 400MG TAB (MAG-OX) PO SCH ×2 (08:49→21:25)
[2022-03-05] MEDS: MOM 30ML SUSPENSION UDC PO SCH (08:50)
[2022-03-05] MEDS: ROSUVASTATIN 10 MG TAB (CRESTOR) PO SCH (21:25)
[2022-03-05] MEDS: RAMELTEON 8 MG TAB (ROZEREM) PO PRN (21:25)
[2022-03-06] MEDS: HEPARIN SOD (PORCINE) 5000UNITS/ML 1ML VIAL/SYRINGE SQ SCH ×3 (05:32→21:44)
[2022-03-06 05:48] VITALS: BP 130/73
[2022-03-06] MEDS: ALPRAZolam 0.25 MG TAB PO PRN ×5 (05:53→22:54)
[2022-03-06] MEDS: PERCOCET 5MG/325MG TAB PO PRN ×5 (05:53→22:55)
[2022-03-06] MEDS: ASPIRIN 81MG CHEW TABLET PO SCH (09:47)
[2022-03-06] MEDS: MAGNESIUM OXIDE 400MG TAB (MAG-OX) PO SCH ×2 (09:48→20:24)
[2022-03-06] MEDS: MOM 30ML SUSPENSION UDC PO SCH (09:49)
[2022-03-06] MEDS: QUEtiapine FUMARATE 25 MG TAB PO SCH ×2 (09:49→20:24)
[2022-03-06] MEDS: ROSUVASTATIN 10 MG TAB (CRESTOR) PO SCH (20:24)
[2022-03-07] MEDS: PERCOCET 5MG/325MG TAB PO PRN ×5 (03:08→23:27)
[2022-03-07] MEDS: ALPRAZolam 0.25 MG TAB PO PRN ×5 (03:08→23:26)
[2022-03-07] MEDS: HEPARIN SOD (PORCINE) 5000UNITS/ML 1ML VIAL/SYRINGE SQ SCH ×3 (06:00→20:27)
[2022-03-07] MEDS: ASPIRIN 81MG CHEW TABLET PO SCH (08:25)
[2022-03-07] MEDS: QUEtiapine FUMARATE 25 MG TAB PO SCH ×2 (08:25→20:26)
[2022-03-07] MEDS: MAGNESIUM OXIDE 400MG TAB (MAG-OX) PO SCH ×2 (08:26→20:27)
[2022-03-07] MEDS: MOM 30ML SUSPENSION UDC PO SCH (08:27)
[2022-03-07] MEDS: ROSUVASTATIN 10 MG TAB (CRESTOR) PO SCH (20:26)
[2022-03-07] MEDS: RAMELTEON 8 MG TAB (ROZEREM) PO PRN (20:27)
[2022-03-08] MEDS: ALPRAZolam 0.25 MG TAB PO PRN ×5 (03:31→21:31)
[2022-03-08] MEDS: PERCOCET 5MG/325MG TAB PO PRN ×5 (03:32→21:32)
[2022-03-08] MEDS: HEPARIN SOD (PORCINE) 5000UNITS/ML 1ML VIAL/SYRINGE SQ SCH ×3 (05:22→22:00)
[2022-03-08 06:00] VITALS: BP 130/74
[2022-03-08] MEDS: MAGNESIUM OXIDE 400MG TAB (MAG-OX) PO SCH ×2 (07:28→21:32)
[2022-03-08] MEDS: ASPIRIN 81MG CHEW TABLET PO SCH (07:28)
[2022-03-08] MEDS: QUEtiapine FUMARATE 25 MG TAB PO SCH ×2 (07:29→21:32)
[2022-03-08] MEDS: MOM 30ML SUSPENSION UDC PO SCH (07:29)
[2022-03-08] MEDS: ROSUVASTATIN 10 MG TAB (CRESTOR) PO SCH (21:31)
[2022-03-08] MEDS: RAMELTEON 8 MG TAB (ROZEREM) PO PRN (21:31)
[2022-03-09] MEDS: ALPRAZolam 0.25 MG TAB PO PRN ×4 (01:43→20:42)
[2022-03-09] MEDS: PERCOCET 5MG/325MG TAB PO PRN ×4 (01:44→20:42)
[2022-03-09] MEDS: HEPARIN SOD (PORCINE) 5000UNITS/ML 1ML VIAL/SYRINGE SQ SCH ×3 (05:02→20:43)
[2022-03-09 06:00] VITALS: BP 162/85
[2022-03-09] MEDS: QUEtiapine FUMARATE 25 MG TAB PO SCH ×2 (11:45→20:42)
[2022-03-09] MEDS: ASPIRIN 81MG CHEW TABLET PO SCH (11:46)
[2022-03-09] MEDS: MAGNESIUM OXIDE 400MG TAB (MAG-OX) PO SCH ×2 (11:46→20:41)
[2022-03-09] MEDS: MOM 30ML SUSPENSION UDC PO SCH (11:46)
[2022-03-09] MEDS: ROSUVASTATIN 10 MG TAB (CRESTOR) PO SCH (20:42)
[2022-03-09] MEDS: RAMELTEON 8 MG TAB (ROZEREM) PO PRN (20:43)
[2022-03-10] MEDS: PERCOCET 5MG/325MG TAB PO PRN ×6 (00:52→23:00)
[2022-03-10] MEDS: ALPRAZolam 0.25 MG TAB PO PRN ×6 (00:52→23:01)
[2022-03-10] MEDS: HEPARIN SOD (PORCINE) 5000UNITS/ML 1ML VIAL/SYRINGE SQ SCH ×3 (04:50→22:00)
[2022-03-10 06:00] VITALS: BP 132/80
[2022-03-10] MEDS: ASPIRIN 81MG CHEW TABLET PO SCH (10:32)
[2022-03-10] MEDS: QUEtiapine FUMARATE 25 MG TAB PO SCH ×2 (10:32→23:02)
[2022-03-10] MEDS: MOM 30ML SUSPENSION UDC PO SCH (10:34)
[2022-03-10] MEDS: MAGNESIUM OXIDE 400MG TAB (MAG-OX) PO SCH ×2 (10:34→23:01)
[2022-03-10] MEDS: ROSUVASTATIN 10 MG TAB (CRESTOR) PO SCH (23:00)
[2022-03-10] MEDS: RAMELTEON 8 MG TAB (ROZEREM) PO PRN (23:01)
[2022-03-11] MEDS: ALPRAZolam 0.25 MG TAB PO PRN ×5 (03:41→23:49)
[2022-03-11] MEDS: PERCOCET 5MG/325MG TAB PO PRN ×5 (03:41→23:49)
[2022-03-11] MEDS: HEPARIN SOD (PORCINE) 5000UNITS/ML 1ML VIAL/SYRINGE SQ SCH ×3 (05:44→20:31)
[2022-03-11 06:00] VITALS: BP 130/80
[2022-03-11] MEDS: MOM 30ML SUSPENSION UDC PO SCH (09:00)
[2022-03-11] MEDS: QUEtiapine FUMARATE 25 MG TAB PO SCH ×2 (09:26→19:53)
[2022-03-11] MEDS: ASPIRIN 81MG CHEW TABLET PO SCH (09:26)
[2022-03-11] MEDS: MAGNESIUM OXIDE 400MG TAB (MAG-OX) PO SCH ×2 (09:27→19:53)
[2022-03-11] MEDS: ROSUVASTATIN 10 MG TAB (CRESTOR) PO SCH (19:53)
[2022-03-11] MEDS: RAMELTEON 8 MG TAB (ROZEREM) PO PRN (23:49)
[2022-03-12] MEDS: ALPRAZolam 0.25 MG TAB PO PRN ×5 (03:46→20:21)
[2022-03-12] MEDS: PERCOCET 5MG/325MG TAB PO PRN ×5 (03:46→20:22)
[2022-03-12] MEDS: HEPARIN SOD (PORCINE) 5000UNITS/ML 1ML VIAL/SYRINGE SQ SCH ×3 (05:30→21:06)
[2022-03-12 06:00] VITALS: BP 163/85
[2022-03-12] MEDS: QUEtiapine FUMARATE 25 MG TAB PO SCH ×2 (07:58→20:20)
[2022-03-12] MEDS: MOM 30ML SUSPENSION UDC PO SCH (07:58)
[2022-03-12] MEDS: ASPIRIN 81MG CHEW TABLET PO SCH (07:59)
[2022-03-12] MEDS: MAGNESIUM OXIDE 400MG TAB (MAG-OX) PO SCH ×2 (08:00→20:21)
[2022-03-12] MEDS: ROSUVASTATIN 10 MG TAB (CRESTOR) PO SCH (20:21)
[2022-03-13] MEDS: RAMELTEON 8 MG TAB (ROZEREM) PO PRN ×2 (00:13→20:30)
[2022-03-13] MEDS: ALPRAZolam 0.25 MG TAB PO PRN ×5 (00:13→20:30)
[2022-03-13] MEDS: PERCOCET 5MG/325MG TAB PO PRN ×5 (00:14→20:30)
[2022-03-13] MEDS: HEPARIN SOD (PORCINE) 5000UNITS/ML 1ML VIAL/SYRINGE SQ SCH ×3 (05:02→22:00)
[2022-03-13 06:00] VITALS: BP 148/4
[2022-03-13] MEDS: MAGNESIUM OXIDE 400MG TAB (MAG-OX) PO SCH ×2 (08:22→20:31)
[2022-03-13] MEDS: QUEtiapine FUMARATE 25 MG TAB PO SCH ×2 (08:24→20:30)
[2022-03-13] MEDS: ASPIRIN 81MG CHEW TABLET PO SCH (08:25)
[2022-03-13] MEDS: MOM 30ML SUSPENSION UDC PO SCH (09:00)
[2022-03-13] MEDS: ROSUVASTATIN 10 MG TAB (CRESTOR) PO SCH (20:31)
[2022-03-14] MEDS: ALPRAZolam 0.25 MG TAB PO PRN ×6 (01:35→23:11)
[2022-03-14] MEDS: PERCOCET 5MG/325MG TAB PO PRN ×6 (01:35→23:12)
[2022-03-14 06:00] VITALS: BP 137/75
[2022-03-14] MEDS: HEPARIN SOD (PORCINE) 5000UNITS/ML 1ML VIAL/SYRINGE SQ SCH ×3 (06:00→20:19)
[2022-03-14] MEDS: QUEtiapine FUMARATE 25 MG TAB PO SCH ×2 (07:13→20:18)
[2022-03-14] MEDS: ASPIRIN 81MG CHEW TABLET PO SCH (07:13)
[2022-03-14] MEDS: MAGNESIUM OXIDE 400MG TAB (MAG-OX) PO SCH ×2 (07:13→20:19)
[2022-03-14] MEDS: MOM 30ML SUSPENSION UDC PO SCH ×2 (07:14→09:00)
[2022-03-14] MEDS: RAMELTEON 8 MG TAB (ROZEREM) PO PRN (20:18)
[2022-03-14] MEDS: ROSUVASTATIN 10 MG TAB (CRESTOR) PO SCH (20:19)
[2022-03-15] MEDS: PERCOCET 5MG/325MG TAB PO PRN ×4 (03:28→18:43)
[2022-03-15] MEDS: ALPRAZolam 0.25 MG TAB PO PRN ×4 (03:29→18:42)
[2022-03-15] MEDS: HEPARIN SOD (PORCINE) 5000UNITS/ML 1ML VIAL/SYRINGE SQ SCH ×3 (05:28→21:55)
[2022-03-15 06:00] VITALS: BP 147/76
[2022-03-15] MEDS: ASPIRIN 81MG CHEW TABLET PO SCH (07:51)
[2022-03-15] MEDS: MAGNESIUM OXIDE 400MG TAB (MAG-OX) PO SCH ×2 (07:51→21:54)
[2022-03-15] MEDS: QUEtiapine FUMARATE 25 MG TAB PO SCH ×2 (07:52→21:54)
[2022-03-15] MEDS: MOM 30ML SUSPENSION UDC PO SCH (09:00)
[2022-03-15] MEDS: RAMELTEON 8 MG TAB (ROZEREM) PO PRN (21:54)
[2022-03-15] MEDS: ROSUVASTATIN 10 MG TAB (CRESTOR) PO SCH (21:55)
[2022-03-16] MEDS: PERCOCET 5MG/325MG TAB PO PRN ×5 (00:28→21:12)
[2022-03-16] MEDS: ALPRAZolam 0.25 MG TAB PO PRN ×5 (00:28→21:12)
[2022-03-16] MEDS: HEPARIN SOD (PORCINE) 5000UNITS/ML 1ML VIAL/SYRINGE SQ SCH ×3 (05:31→21:24)
[2022-03-16 06:00] VITALS: BP 138/74
[2022-03-16] MEDS: MOM 30ML SUSPENSION UDC PO SCH (09:00)
[2022-03-16] MEDS: MAGNESIUM OXIDE 400MG TAB (MAG-OX) PO SCH ×2 (09:06→21:12)
[2022-03-16] MEDS: QUEtiapine FUMARATE 25 MG TAB PO SCH ×2 (09:07→21:12)
[2022-03-16] MEDS: ASPIRIN 81MG CHEW TABLET PO SCH (09:07)
[2022-03-16] MEDS: ROSUVASTATIN 10 MG TAB (CRESTOR) PO SCH (21:11)
[2022-03-16] MEDS: RAMELTEON 8 MG TAB (ROZEREM) PO PRN (21:12)
[2022-03-17] MEDS: ALPRAZolam 0.25 MG TAB PO PRN ×6 (01:07→21:34)
[2022-03-17] MEDS: PERCOCET 5MG/325MG TAB PO PRN ×6 (01:08→21:35)
[2022-03-17] MEDS: HEPARIN SOD (PORCINE) 5000UNITS/ML 1ML VIAL/SYRINGE SQ SCH ×3 (05:15→21:35)
[2022-03-17] MEDS: MOM 30ML SUSPENSION UDC PO SCH (09:00)
[2022-03-17] MEDS: MAGNESIUM OXIDE 400MG TAB (MAG-OX) PO SCH ×2 (09:09→21:34)
[2022-03-17] MEDS: ASPIRIN 81MG CHEW TABLET PO SCH (09:09)
[2022-03-17] MEDS: QUEtiapine FUMARATE 25 MG TAB PO SCH ×2 (09:10→21:33)
[2022-03-17] MEDS: ROSUVASTATIN 10 MG TAB (CRESTOR) PO SCH (21:34)
[2022-03-17] MEDS: RAMELTEON 8 MG TAB (ROZEREM) PO PRN (21:34)
[2022-03-18] MEDS: ALPRAZolam 0.25 MG TAB PO PRN ×3 (01:37→22:53)
[2022-03-18] MEDS: PERCOCET 5MG/325MG TAB PO PRN ×3 (01:37→22:52)
[2022-03-18 04:56] VITALS: BP 145/86
[2022-03-18] MEDS: HEPARIN SOD (PORCINE) 5000UNITS/ML 1ML VIAL/SYRINGE SQ SCH ×3 (06:00→22:00)
[2022-03-18] MEDS: MOM 30ML SUSPENSION UDC PO SCH (11:08)
[2022-03-18] MEDS: ASPIRIN 81MG CHEW TABLET PO SCH (11:12)
[2022-03-18] MEDS: QUEtiapine FUMARATE 25 MG TAB PO SCH ×2 (11:12→22:53)
[2022-03-18] MEDS: MAGNESIUM OXIDE 400MG TAB (MAG-OX) PO SCH ×2 (11:12→22:53)
[2022-03-18] MEDS: RAMELTEON 8 MG TAB (ROZEREM) PO PRN (22:53)
[2022-03-18] MEDS: ROSUVASTATIN 10 MG TAB (CRESTOR) PO SCH (22:53)
[2022-03-19] MEDS: PERCOCET 5MG/325MG TAB PO PRN ×5 (03:12→23:00)
[2022-03-19] MEDS: ALPRAZolam 0.25 MG TAB PO PRN ×5 (03:12→23:01)
[2022-03-19] MEDS: HEPARIN SOD (PORCINE) 5000UNITS/ML 1ML VIAL/SYRINGE SQ SCH ×3 (05:50→23:00)
[2022-03-19 06:00] VITALS: BP 139/82
[2022-03-19] MEDS: ASPIRIN 81MG CHEW TABLET PO SCH (09:56)
[2022-03-19] MEDS: QUEtiapine FUMARATE 25 MG TAB PO SCH ×2 (09:57→23:01)
[2022-03-19] MEDS: MAGNESIUM OXIDE 400MG TAB (MAG-OX) PO SCH ×2 (09:57→23:00)
[2022-03-19] MEDS: MOM 30ML SUSPENSION UDC PO SCH (10:01)
[2022-03-19] MEDS: ROSUVASTATIN 10 MG TAB (CRESTOR) PO SCH (23:00)
[2022-03-19] MEDS: RAMELTEON 8 MG TAB (ROZEREM) PO PRN (23:01)
[2022-03-20] MEDS: ALPRAZolam 0.25 MG TAB PO PRN ×4 (04:04→20:30)
[2022-03-20] MEDS: PERCOCET 5MG/325MG TAB PO PRN ×4 (04:04→20:29)
[2022-03-20] MEDS: HEPARIN SOD (PORCINE) 5000UNITS/ML 1ML VIAL/SYRINGE SQ SCH ×3 (05:31→22:00)
[2022-03-20] MEDS: MAGNESIUM OXIDE 400MG TAB (MAG-OX) PO SCH ×2 (08:09→20:30)
[2022-03-20] MEDS: QUEtiapine FUMARATE 25 MG TAB PO SCH ×2 (08:09→20:30)
[2022-03-20] MEDS: ASPIRIN 81MG CHEW TABLET PO SCH (08:09)
[2022-03-20] MEDS: MOM 30ML SUSPENSION UDC PO SCH (09:00)
[2022-03-20] MEDS: ROSUVASTATIN 10 MG TAB (CRESTOR) PO SCH (20:29)
[2022-03-21] MEDS: ALPRAZolam 0.25 MG TAB PO PRN ×6 (01:30→22:42)
[2022-03-21] MEDS: PERCOCET 5MG/325MG TAB PO PRN ×6 (01:30→22:44)
[2022-03-21] MEDS: HEPARIN SOD (PORCINE) 5000UNITS/ML 1ML VIAL/SYRINGE SQ SCH ×3 (05:19→22:00)
[2022-03-21] MEDS: ASPIRIN 81MG CHEW TABLET PO SCH (09:45)
[2022-03-21] MEDS: MAGNESIUM OXIDE 400MG TAB (MAG-OX) PO SCH ×2 (09:46→22:42)
[2022-03-21] MEDS: QUEtiapine FUMARATE 25 MG TAB PO SCH ×2 (09:46→22:42)
[2022-03-21] MEDS: MOM 30ML SUSPENSION UDC PO SCH (09:46)
[2022-03-21] MEDS: RAMELTEON 8 MG TAB (ROZEREM) PO PRN (22:41)
[2022-03-21] MEDS: ROSUVASTATIN 10 MG TAB (CRESTOR) PO SCH (22:42)
[2022-03-22] MEDS: ALPRAZolam 0.25 MG TAB PO PRN ×5 (03:02→20:10)
[2022-03-22] MEDS: PERCOCET 5MG/325MG TAB PO PRN ×5 (03:03→20:10)
[2022-03-22] MEDS: HEPARIN SOD (PORCINE) 5000UNITS/ML 1ML VIAL/SYRINGE SQ SCH ×3 (04:16→20:12)
[2022-03-22] MEDS: MAGNESIUM OXIDE 400MG TAB (MAG-OX) PO SCH ×2 (07:50→20:12)
[2022-03-22] MEDS: ASPIRIN 81MG CHEW TABLET PO SCH (07:51)
[2022-03-22] MEDS: QUEtiapine FUMARATE 25 MG TAB PO SCH ×2 (07:51→20:11)
[2022-03-22] MEDS: MOM 30ML SUSPENSION UDC PO SCH ×2 (07:52→07:54)
[2022-03-22] MEDS ORDERED: ALBUTEROL 90 MCG/ACT 8GM HFA INHALER INH PRN (11:35)
[2022-03-22] MEDS: RAMELTEON 8 MG TAB (ROZEREM) PO PRN (20:11)
[2022-03-22] MEDS: ROSUVASTATIN 10 MG TAB (CRESTOR) PO SCH (20:12)
[2022-03-23] MEDS: PERCOCET 5MG/325MG TAB PO PRN ×6 (00:11→20:48)
[2022-03-23] MEDS: ALPRAZolam 0.25 MG TAB PO PRN ×6 (00:12→20:48)
[2022-03-23] MEDS: HEPARIN SOD (PORCINE) 5000UNITS/ML 1ML VIAL/SYRINGE SQ SCH ×3 (05:23→20:49)
[2022-03-23] MEDS: ASPIRIN 81MG CHEW TABLET PO SCH (08:40)
[2022-03-23] MEDS: QUEtiapine FUMARATE 25 MG TAB PO SCH ×2 (08:40→20:49)
[2022-03-23] MEDS: MAGNESIUM OXIDE 400MG TAB (MAG-OX) PO SCH ×2 (08:42→20:47)
[2022-03-23] MEDS: MOM 30ML SUSPENSION UDC PO SCH (08:42)
[2022-03-23] MEDS: ROSUVASTATIN 10 MG TAB (CRESTOR) PO SCH (20:48)
[2022-03-23] MEDS: RAMELTEON 8 MG TAB (ROZEREM) PO PRN (20:49)
[2022-03-24] MEDS: ALPRAZolam 0.25 MG TAB PO PRN ×5 (01:02→21:51)
[2022-03-24] MEDS: PERCOCET 5MG/325MG TAB PO PRN ×6 (01:02→21:53)
[2022-03-24] MEDS: HEPARIN SOD (PORCINE) 5000UNITS/ML 1ML VIAL/SYRINGE SQ SCH ×3 (05:40→22:00)
[2022-03-24] MEDS: MOM 30ML SUSPENSION UDC PO SCH (09:00)
[2022-03-24] MEDS: QUEtiapine FUMARATE 25 MG TAB PO SCH ×2 (09:32→21:52)
[2022-03-24] MEDS: ASPIRIN 81MG CHEW TABLET PO SCH (09:32)
[2022-03-24] MEDS: MAGNESIUM OXIDE 400MG TAB (MAG-OX) PO SCH ×2 (09:34→21:51)
[2022-03-24] MEDS ORDERED: ALPRAZolam 0.5 MG TAB PO PRN (13:50)
[2022-03-24] MEDS: ROSUVASTATIN 10 MG TAB (CRESTOR) PO SCH (21:52)
[2022-03-25] MEDS: ALPRAZolam 0.25 MG TAB PO PRN ×5 (01:32→21:58)
[2022-03-25] MEDS: PERCOCET 5MG/325MG TAB PO PRN ×5 (01:33→21:58)
[2022-03-25] MEDS: HEPARIN SOD (PORCINE) 5000UNITS/ML 1ML VIAL/SYRINGE SQ SCH ×3 (05:24→21:59)
[2022-03-25] MEDS: QUEtiapine FUMARATE 25 MG TAB PO SCH ×2 (09:40→21:58)
[2022-03-25] MEDS: ASPIRIN 81MG CHEW TABLET PO SCH (09:40)
[2022-03-25] MEDS: MAGNESIUM OXIDE 400MG TAB (MAG-OX) PO SCH ×2 (09:41→21:59)
[2022-03-25] MEDS: MOM 30ML SUSPENSION UDC PO SCH (09:41)
[2022-03-25] MEDS: ROSUVASTATIN 10 MG TAB (CRESTOR) PO SCH (21:59)
[2022-03-26] MEDS: HEPARIN SOD (PORCINE) 5000UNITS/ML 1ML VIAL/SYRINGE SQ SCH ×3 (05:14→22:00)
[2022-03-26] MEDS: MOM 30ML SUSPENSION UDC PO SCH (09:00)
[2022-03-26] MEDS: QUEtiapine FUMARATE 25 MG TAB PO SCH ×2 (09:30→22:29)
[2022-03-26] MEDS: ASPIRIN 81MG CHEW TABLET PO SCH (09:30)
[2022-03-26] MEDS: ALPRAZolam 0.25 MG TAB PO PRN ×2 (09:31→22:29)
[2022-03-26] MEDS: MAGNESIUM OXIDE 400MG TAB (MAG-OX) PO SCH ×2 (09:31→22:29)
[2022-03-26] MEDS: PERCOCET 5MG/325MG TAB PO PRN ×2 (09:32→22:28)
[2022-03-26] MEDS ORDERED: SENN-52 PO (16:20)
[2022-03-26] MEDS ORDERED: CRES10TA PO (16:20)
[2022-03-26] MEDS ORDERED: AMLO1TAB25 PO (16:20)
[2022-03-26] MEDS ORDERED: RAME8TAB2 PO (16:20)
[2022-03-26] MEDS ORDERED: ACET1TAB55 PO (16:20)
[2022-03-26] MEDS ORDERED: VENTAER INH (16:20)
[2022-03-26] MEDS ORDERED: ALPR0.25 PO (16:20)
[2022-03-26] MEDS ORDERED: MAGN400T2 PO (16:20)
[2022-03-26] MEDS ORDERED: QUET1TAB17 PO (16:20)
[2022-03-26] MEDS ORDERED: ASPI81CH8 PO (16:20)
[2022-03-26] MEDS ORDERED: PERCOCET PO (16:20)
[2022-03-26] MEDS: ROSUVASTATIN 10 MG TAB (CRESTOR) PO SCH (22:28)
[2022-03-27] MEDS: HEPARIN SOD (PORCINE) 5000UNITS/ML 1ML VIAL/SYRINGE SQ SCH ×3 (05:55→22:00)
[2022-03-27] MEDS: QUEtiapine FUMARATE 25 MG TAB PO SCH ×2 (09:30→20:30)
[2022-03-27] MEDS: ASPIRIN 81MG CHEW TABLET PO SCH (09:30)
[2022-03-27] MEDS: MOM 30ML SUSPENSION UDC PO SCH (09:31)
[2022-03-27] MEDS: MAGNESIUM OXIDE 400MG TAB (MAG-OX) PO SCH ×2 (09:31→20:30)
[2022-03-27] MEDS: ROSUVASTATIN 10 MG TAB (CRESTOR) PO SCH (20:30)
[2022-03-28] MEDS: HEPARIN SOD (PORCINE) 5000UNITS/ML 1ML VIAL/SYRINGE SQ SCH ×3 (06:00→20:11)
[2022-03-28] MEDS: PERCOCET 5MG/325MG TAB PO PRN ×3 (08:16→19:26)
[2022-03-28] MEDS: QUEtiapine FUMARATE 25 MG TAB PO SCH ×2 (08:17→20:11)
[2022-03-28] MEDS: ALPRAZolam 0.25 MG TAB PO PRN ×3 (08:17→19:25)
[2022-03-28] MEDS: MAGNESIUM OXIDE 400MG TAB (MAG-OX) PO SCH ×2 (08:17→20:11)
[2022-03-28] MEDS: ASPIRIN 81MG CHEW TABLET PO SCH (08:18)
[2022-03-28] MEDS: MOM 30ML SUSPENSION UDC PO SCH (08:18)
[2022-03-28] MEDS ORDERED: FUROSEMIDE 20 MG TAB PO ONE (17:00)
[2022-03-28] MEDS: ROSUVASTATIN 10 MG TAB (CRESTOR) PO SCH (20:11)
[2022-03-29] MEDS: ALPRAZolam 0.25 MG TAB PO PRN ×6 (03:56→20:05)
[2022-03-29] MEDS: PERCOCET 5MG/325MG TAB PO PRN ×7 (03:57→20:08)
[2022-03-29] MEDS: HEPARIN SOD (PORCINE) 5000UNITS/ML 1ML VIAL/SYRINGE SQ SCH ×3 (06:00→20:06)
[2022-03-29] MEDS: ASPIRIN 81MG CHEW TABLET PO SCH (08:09)
[2022-03-29] MEDS: QUEtiapine FUMARATE 25 MG TAB PO SCH ×2 (08:10→20:04)
[2022-03-29] MEDS: MAGNESIUM OXIDE 400MG TAB (MAG-OX) PO SCH ×2 (08:11→20:06)
[2022-03-29] MEDS: MOM 30ML SUSPENSION UDC PO SCH (08:12)
[2022-03-29] MEDS: ROSUVASTATIN 10 MG TAB (CRESTOR) PO SCH (20:05)
[2022-03-30] MEDS: PERCOCET 5MG/325MG TAB PO PRN ×4 (03:04→19:30)
[2022-03-30] MEDS: ALPRAZolam 0.25 MG TAB PO PRN ×4 (03:05→19:30)
[2022-03-30 06:00] VITALS: BP 162/85
[2022-03-30] MEDS: HEPARIN SOD (PORCINE) 5000UNITS/ML 1ML VIAL/SYRINGE SQ SCH ×3 (06:00→22:00)
[2022-03-30] MEDS: MOM 30ML SUSPENSION UDC PO SCH (09:00)
[2022-03-30] MEDS: ASPIRIN 81MG CHEW TABLET PO SCH (09:35)
[2022-03-30] MEDS: MAGNESIUM OXIDE 400MG TAB (MAG-OX) PO SCH ×2 (09:35→22:47)
[2022-03-30] MEDS: QUEtiapine FUMARATE 25 MG TAB PO SCH ×2 (09:36→22:46)
[2022-03-30] MEDS: ROSUVASTATIN 10 MG TAB (CRESTOR) PO SCH (22:46)
[2022-03-30] MEDS: RAMELTEON 8 MG TAB (ROZEREM) PO PRN (22:49)
[2022-03-31] MEDS: HEPARIN SOD (PORCINE) 5000UNITS/ML 1ML VIAL/SYRINGE SQ SCH ×3 (05:05→22:00)
[2022-03-31] MEDS: ALPRAZolam 0.25 MG TAB PO PRN ×5 (05:52→22:15)
[2022-03-31] MEDS: PERCOCET 5MG/325MG TAB PO PRN ×5 (05:52→22:18)
[2022-03-31] MEDS: MOM 30ML SUSPENSION UDC PO SCH (09:00)
[2022-03-31] MEDS: QUEtiapine FUMARATE 25 MG TAB PO SCH ×2 (09:48→22:15)
[2022-03-31] MEDS: ASPIRIN 81MG CHEW TABLET PO SCH (09:48)
[2022-03-31] MEDS: MAGNESIUM OXIDE 400MG TAB (MAG-OX) PO SCH ×2 (09:50→22:16)
[2022-03-31] MEDS: RAMELTEON 8 MG TAB (ROZEREM) PO PRN (22:15)
[2022-03-31] MEDS: ROSUVASTATIN 10 MG TAB (CRESTOR) PO SCH (22:16)
[2022-04-01] MEDS: PERCOCET 5MG/325MG TAB PO PRN ×5 (03:19→20:29)
[2022-04-01] MEDS: HEPARIN SOD (PORCINE) 5000UNITS/ML 1ML VIAL/SYRINGE SQ SCH ×3 (05:14→20:29)
[2022-04-01 07:29] VITALS: BP 162/85
[2022-04-01] MEDS: ASPIRIN 81MG CHEW TABLET PO SCH (07:29)
[2022-04-01] MEDS: MAGNESIUM OXIDE 400MG TAB (MAG-OX) PO SCH ×2 (07:29→20:28)
[2022-04-01] MEDS: QUEtiapine FUMARATE 25 MG TAB PO SCH ×2 (07:30→20:28)
[2022-04-01] MEDS: ALPRAZolam 0.25 MG TAB PO PRN ×4 (07:30→20:29)
[2022-04-01] MEDS: MOM 30ML SUSPENSION UDC PO SCH (08:39)
[2022-04-01] MEDS ORDERED: ALPR0.25 PO ×2 (14:32→14:35)
[2022-04-01] MEDS ORDERED: PERCOCET PO ×2 (14:32→14:35)
[2022-04-01] MEDS: ROSUVASTATIN 10 MG TAB (CRESTOR) PO SCH (20:27)
[2022-04-02] MEDS: ALPRAZolam 0.25 MG TAB PO PRN ×3 (00:36→09:28)
[2022-04-02] MEDS: PERCOCET 5MG/325MG TAB PO PRN ×3 (00:37→09:28)
[2022-04-02] MEDS: HEPARIN SOD (PORCINE) 5000UNITS/ML 1ML VIAL/SYRINGE SQ SCH (05:51)
[2022-04-02] MEDS: MOM 30ML SUSPENSION UDC PO SCH (09:00)
[2022-04-02] MEDS: QUEtiapine FUMARATE 25 MG TAB PO SCH (09:27)
[2022-04-02] MEDS: ASPIRIN 81MG CHEW TABLET PO SCH (09:28)
[2022-04-02] MEDS: MAGNESIUM OXIDE 400MG TAB (MAG-OX) PO SCH (09:29)
== END 2022-04-02 09:30 | disposition home or self-care (01) | DRG 92 ==
LOC: M ED 18:38 → M ED INP 04-13 10:36 → ENRESERV 04-13 11:35 → M MS5PR 04-13 13:15 → EEVIPCON 04-15 10:10 → OBSVTOIN 04-15 10:10
PROVIDERS: ADMIT Internal Medicine; ATTEND Family Medicine
PROC: B246ZZZ Ultrasonography of Right and Left Heart (ICD-10-PCS; principal; 2021-12-11)
DX: G92.8 Other toxic encephalopathy (principal); I50.32 Chronic diastolic (congestive) heart failure; F02.811 Dementia in other diseases classified elsewhere, unspecified severity, with agitation; R45.851 Suicidal ideations; G30.9 Alzheimer's disease, unspecified; T40.2X1A Poisoning by other opioids, accidental (unintentional), initial encounter; I11.0 Hypertensive heart disease with heart failure; E78.5 Hyperlipidemia, unspecified; J44.9 Chronic obstructive pulmonary disease, unspecified; T42.4X5A Adverse effect of benzodiazepines, initial encounter; F41.9 Anxiety disorder, unspecified; F32.A Depression, unspecified; K59.03 Drug induced constipation; M19.90 Unspecified osteoarthritis, unspecified site; M54.9 Dorsalgia, unspecified; G89.29 Other chronic pain; G47.00 Insomnia, unspecified; Z55.0 Illiteracy and low-level literacy; K59.09 Other constipation; K76.0 Fatty (change of) liver, not elsewhere classified; I35.8 Other nonrheumatic aortic valve disorders; R60.0 Localized edema